=== PATIENT | female | born 1990 | race Caucasian/White ===

== ENCOUNTER 2024-04-26 17:16 | Inpatient (IN) | payer OTHER, SELFPAY ==
[2024-04-26 11:02] VITALS: BP 153/96
[2024-04-26 11:43] LABS: HCG, Serum Qualitative Screen Negative
[2024-04-26 11:47] LABS: Alkaline Phosphatase 282 U/L (38-126); Blood Urea Nitrogen < 2 mg/dl (7-17); COVID-19 Antigen Negative (Negative); Calcium 8.5 mg/dl (8.4-10.2); Carbon Dioxide 20 mmol/L (22-30); Chloride 93 mmol/L (98-107); Glucose 89 mg/dl (70-99); Potassium 3.3 mmol/L (3.5-5.1); Sodium 137 mmol/L (135-145); Total Protein 7.5 g/dl (6.3-8.2); eGFR > 60.00
[2024-04-26 11:56] LABS: ALT (SGPT) 62 U/L (0-35); AST (SGOT) 475 U/L (14-36)
--- NOTE | 2024-04-26 12:08 | ED.GENMED ---
History of Present Illness
<ANGELIC Edward - Last Filed: 04/30/24 09:17>
General
Chief Complaint: Breathing Problem
Source: patient
Exam Limitations: none
Time Seen by Provider: 04/26/24 12:05
Nursing documentation reviewed up to this point in time: agreed with
History of Present Illness
History of Present Illness:
Patient is a 33-year-old female with history of alcohol use disorder obesity depression history of transaminitis in the past presents to the ER for evaluation. She reports for the past week she has had a cough and bodyaches fever chills however now
complains of shortness of breath. She is a non-smoker. In addition she c/ of upper abdominal pain . did last drink alcohol yesterday.
She denies any history of PE DVT denies any lower leg pain or swelling.
Past History
<ANGELIC Edward - Last Filed: 04/30/24 09:17>
Past History
ED Past Medical History: Psychiatric and Other (Cellulitis, Gout,)
ED Past Surgical History: and Other
Social History
Tobacco: Smoker
Alcohol: None
Personal: Single
Living: with family
Employment: Student
Review of Systems
<ANGELIC Edward - Last Filed: 04/30/24 09:17>
Review of Systems
Allergies reviewed?: Yes
All Other Systems: ROS reviewed and negative except as documented in HPI and ROS
Constitutional: Reports fatigue
EENT: Reports no symptoms
Respiratory: Reports cough and trouble breathing
Cardiac: Reports no symptoms
ABD/GI: Reports no symptoms
Musculoskeletal: Reports no symptoms
Skin: Reports no symptoms
Hematologic/Lymphatic: Reports no symptoms
Psychiatric: Reports no symptoms
Phy Exam
<ANGELIC Edward - Last Filed: 04/30/24 09:17>
General Physical Exam
General Presentation: no apparent distress
General age: appears stated age
General Skin: warm and dry
General Habitus: normal
General Mental: alert
General Hydration: appears well hydrated
Eye Exam
Eye Exam: PERRL, EOMI and other (Scleral icterus)
Eye Exam General: PERRL: bilateral and EOM intact: bilateral
Pupil Exam: Bilateral: round and reactive
Cardiovascular Exam
Cardiovascular Exam: regular rate/rhythm, no murmur and normal peripheral pulses
Pulmonary Exam
Pulmonary Exam: lungs clear and no respiratory distress
Neurological Exam
Neurological Exam: alert and oriented x3
Musculoskeletal Exam
Musculoskeletal Exam: full ROM
Skin Exam
Skin Exam: normal color and warm/dry
Psychiatric Exam
Psychiatric Exam: normal mood/affect
Course
<ANGELIC Edward - Last Filed: 04/30/24 09:17>
Orders/Labs/Results
Orders:
Orders
04/26/24 Lunch
BRAT
At Your Request: Full Participation
04/26/24 11:12
Test Result ONCE
CXR2 [CR Chest - 2 Views ] Urgent
Comment:
Reason For Exam: SOB
04/26/24 11:20
COVID-19 Antigen Urgent
Source: Nasal Swab
Complete Blood Count/With Diff Urgent
Comprehensive Metabolic Panel Urgent
HCG, Serum Qualitative Screen Urgent
Lipase Urgent
Magnesium Urgent
Comment: ADD ON
Phosphorus Urgent
Comment: ADD ON
Influenza A+B Rapid Molecular Urgent
MAYRA Source: Nasal Swab
Specimen Description:
04/26/24 12:21
0.9% Sodium Chloride 1000 ml [Nss] 1,000 ml IV BOLUS
Morphine Sulfate 4 mg IV NOW STA
US Abdomen Complete/Upper Urgent
Comment:
Reason For Exam: upper abbd pain
04/26/24 14:24
HYDROmorphone [Dilaudid] 1 mg IV NOW STA
04/26/24 15:12
CT Chest PE Study Urgent
Comment:
Reason For Exam: sob
04/26/24 16:31
Ondansetron Injectable [Zofran] 4 mg .ROUTE .STK-MED ONE
Ondansetron Injectable [Zofran] 4 mg IV NOW STA
04/26/24 16:32
EKG- Treatment ONCE
04/26/24 16:34
Potassium Chloride [KCl] 40 meq 0.9% Sodium Chloride 250 ml [Nss] 250 ml IV NOW
04/26/24 16:35
Add On- LAB Routine
Tests Added?: magnesium
EKG [Electrocardiogram (*1)] Routine
Reason for Study: QTc Monitoring
Oseltamivir Phosphate [Tamiflu] 75 mg PO NOW STA
04/26/24 16:37
Add On- LAB Urgent
Tests Added?: phosphorous
INR [Prothrombin Time] Urgent
04/26/24 16:39
Admit/Transfer Patient As Directed
Co-Sign Provider:
Level of Care: Inpatient admission
Assign to:: Telemetry
Physician / Group: Kirsten Fajardo
Diagnosis: Influenza A, alcohol hepatitis
Reason for Telemetry: Chest Pain syndromes
Date to Stop Telemetry: 04/28/24
Time to Stop Telemetry: 11:00
Reason for Hospitalization: Influenza A, alcohol hepatitis
Expected length of stay greater than two midnights?: Yes
ELOS- Estimated Length of Stay in days: 3
I certify the patient meets the requirements for IP care: Yes
PRN Pain Medication Management As Directed
May give lesser potent ordered pain med per pt: Yes
preference::
Protocol:: Medication orders for pain may be administered in a
manner that supports deferring to patient preference
when the pt is:
- Requesting an ordered lesser potent pain medication.
Least to most potent pain medications are defined
as: acetaminophen < NSAID < tramadol < opioids
(morphine, oxycodone, hydromorphone).
- Requesting a lesser dose of the same medication IF
ORDERED.
- Requesting a less intrusive route of administration
if both routes are prescribed by the provider (PO <
IV).
04/26/24 16:40
Code Status As Directed
Resuscitation Status: Full Code
04/26/24 16:43
Lorazepam [Ativan] 0.5 mg IV NOW STA
04/26/24 16:44
0.9% Sodium Chloride [Nss (Preservative Free)] 0.25 ml IV NOW STA
04/26/24 16:45
0.9% Sodium Chloride 1000 ml [Nss] 1,000 ml IV 125 mls/hr
04/26/24 18:21
0.9% Sodium Chloride [Nss (Preservative Free)] See Protocol IV PRN PRN
Acetaminophen [Tylenol] 650 mg PO Q4HPRN PRN
Enoxaparin Sodium [Lovenox] 40 mg SC QPM
FOLic ACID [Folvite] 1 mg 0.9% Sodium Chloride 50 ml [Nss] 50 ml IV DAILYPRN
Lorazepam [Ativan] 1 mg IV Q1HPRN PRN
Lorazepam [Ativan] 1 mg PO Q2HPRN PRN
Lorazepam [Ativan] 2 mg IV Q1HPRN PRN
Polyethylene Glycol Powder [Miralax] 17 grams PO DAILYPRN PRN
04/26/24 18:21
Case Management Consult Once
Case Management Consult: Other
Comment: Substance abuse counseling
DIETARY CONSULT Routine
Reason for Consult: Nutrition support, possible refeeding guidelines
Urine Drug Abuse Screen Routine
Date Specimen was Collected: 04/27/24
Time Specimen was Collected: :27
Activity As Directed
Activity Level: As Tolerated
MSAS SCORE As Directed
MSAS Score 0-4: Repeat MSAS every 2 hours until 0-4 for three consecutive assessments, then every 4 hours x 48
hours.
MSAS Score 5-7: For MILD withdrawl symptoms. Repeat MSAS and RASS every 2 hours
MSAS Score 8-11: For MODERATE withdrawal symptoms. Repeat MSAS and RASS every 1 hour. Consider ICU or IMU
level of care.
MSAS Score > 11: For SEVERE withdrawal symptoms. Repeat MSAS and RASS every 1 hour. Notify provider, consider
ICU level of care.
MSAS Additional Instructions: If no improvement or no decrease in score from severe to moderate within 12
hours, consult psychiatry
MSAS Notify Provider: Notify provider if patient requires more than 10 mg of Lorazepam in eight hour period.
Vital Signs As Directed
Frequency: Per unit guidelines
DX Deep Vein Thrombosis Video Routine
04/27/24 00:00
Thiamine Injection 200 mg IV Q8
04/27/24 06:00
EKG [Electrocardiogram (*1)] IN AM
Reason for Study: QTc Monitoring
04/27/24 07:28
Complete Blood Count/With Diff IN AM
Comprehensive Metabolic Panel IN AM
Magnesium IN AM
04/27/24 08:00
FOLic ACID [Folvite] 1 mg PO DAILY
Oseltamivir Phosphate [Tamiflu] 75 mg PO BID
04/28/24 11:00
DC Protocol for Telemetry ONCE
04/29/24 20:00
Thiamine HCl [Vitamin B1] 100 mg PO BID
Abnormal Lab Results
04/26/24 04/26/24
11:20 16:37
RBC 3.48 L 10^6/uL
(4.20-5.40)
Hct 36.8 L %
(37.0-47.0)
MCV 105.7 H fL
(81.0-99.0)
MCH 37.4 H pg
(27.0-31.0)
RDW 17.3 H %
(11.5-14.5)
Plt Count 128 L 10^3/uL
(130-400)
MPV 11.6 H fL
(7.4-10.4)
Abs Immat Gran (auto) 0.1 H 10^3/uL
(0-0.05)
Absolute Neuts (auto) 7.8 H 10^3/uL
(1.4-6.5)
Absolute Lymphs (auto) 0.6 L 10^3/uL
(1.2-3.4)
Immature Gran % 0.7 H %
(0-0.5)
Neutrophils % 87.7 H %
(42.2-75.2)
Lymphocytes % 6.8 L %
(20.5-51.1)
PT 16.7 H Sec
(11.4-14.6)
Potassium 3.3 L mmol/L
(3.5-5.1)
Chloride 93 L mmol/L
(98-107)
Carbon Dioxide 20 L mmol/L
(22-30)
BUN < 2 L mg/dl
(7-17)
Creatinine 0.5 L mg/dL
(0.6-1.0)
Total Bilirubin 7.0 H mg/dl
(0.2-1.3)
AST 475 H U/L
(14-36)
ALT 62 H U/L
(0-35)
Alkaline Phosphatase 282 H U/L
(38-126)
04/26/24 11:20
04/26/24 11:20
Vital Signs
Initial and Last Documented VS:
Initial Vital Signs
Temp Pulse Resp BP Pulse Ox
98.8 F 104 18 153/96 99
04/26/24 11:02 04/26/24 11:02 04/26/24 11:02 04/26/24 11:02 04/26/24 11:02
Last Documented Vital Signs
Temp Pulse Resp BP Pulse Ox
98.0 F 105 19 109/65 96
04/30/24 07:05 04/30/24 07:05 04/30/24 07:05 04/30/24 07:05 04/30/24 07:05
<Alvarez Amaya, DO - Last Filed: 04/26/24 12:23>
Orders/Labs/Results
Orders:
Orders
04/26/24 Lunch
BRAT
At Your Request: Full Participation
04/26/24 11:12
Test Result ONCE
CXR2 [CR Chest - 2 Views ] Urgent
Comment:
Reason For Exam: SOB
04/26/24 11:20
COVID-19 Antigen Urgent
Source: Nasal Swab
Complete Blood Count/With Diff Urgent
Comprehensive Metabolic Panel Urgent
HCG, Serum Qualitative Screen Urgent
Lipase Urgent
Magnesium Urgent
Comment: ADD ON
Phosphorus Urgent
Comment: ADD ON
Influenza A+B Rapid Molecular Urgent
MAYRA Source: Nasal Swab
Specimen Description:
04/26/24 12:21
0.9% Sodium Chloride 1000 ml [Nss] 1,000 ml IV BOLUS
Morphine Sulfate 4 mg IV NOW STA
US Abdomen Complete/Upper Urgent
Comment:
Reason For Exam: upper abbd pain
04/26/24 14:24
HYDROmorphone [Dilaudid] 1 mg IV NOW STA
04/26/24 15:12
CT Chest PE Study Urgent
Comment:
Reason For Exam: sob
04/26/24 16:31
Ondansetron Injectable [Zofran] 4 mg .ROUTE .STK-MED ONE
Ondansetron Injectable [Zofran] 4 mg IV NOW STA
04/26/24 16:32
EKG- Treatment ONCE
04/26/24 16:34
Potassium Chloride [KCl] 40 meq 0.9% Sodium Chloride 250 ml [Nss] 250 ml IV NOW
04/26/24 16:35
Add On- LAB Routine
Tests Added?: magnesium
EKG [Electrocardiogram (*1)] Routine
Reason for Study: QTc Monitoring
Oseltamivir Phosphate [Tamiflu] 75 mg PO NOW STA
04/26/24 16:37
Add On- LAB Urgent
Tests Added?: phosphorous
INR [Prothrombin Time] Urgent
04/26/24 16:39
Admit/Transfer Patient As Directed
Co-Sign Provider:
Level of Care: Inpatient admission
Assign to:: Telemetry
Physician / Group: Kirsten Fajardo
Diagnosis: Influenza A, alcohol hepatitis
Reason for Telemetry: Chest Pain syndromes
Date to Stop Telemetry: 04/28/24
Time to Stop Telemetry: 11:00
Reason for Hospitalization: Influenza A, alcohol hepatitis
Expected length of stay greater than two midnights?: Yes
ELOS- Estimated Length of Stay in days: 3
I certify the patient meets the requirements for IP care: Yes
PRN Pain Medication Management As Directed
May give lesser potent ordered pain med per pt: Yes
preference::
Protocol:: Medication orders for pain may be administered in a
manner that supports deferring to patient preference
when the pt is:
- Requesting an ordered lesser potent pain medication.
Least to most potent pain medications are defined
as: acetaminophen < NSAID < tramadol < opioids
(morphine, oxycodone, hydromorphone).
- Requesting a lesser dose of the same medication IF
ORDERED.
- Requesting a less intrusive route of administration
if both routes are prescribed by the provider (PO <
IV).
04/26/24 16:40
Code Status As Directed
Resuscitation Status: Full Code
04/26/24 16:43
Lorazepam [Ativan] 0.5 mg IV NOW STA
04/26/24 16:44
0.9% Sodium Chloride [Nss (Preservative Free)] 0.25 ml IV NOW STA
04/26/24 16:45
0.9% Sodium Chloride 1000 ml [Nss] 1,000 ml IV 125 mls/hr
04/26/24 18:21
0.9% Sodium Chloride [Nss (Preservative Free)] See Protocol IV PRN PRN
Acetaminophen [Tylenol] 650 mg PO Q4HPRN PRN
Enoxaparin Sodium [Lovenox] 40 mg SC QPM
FOLic ACID [Folvite] 1 mg 0.9% Sodium Chloride 50 ml [Nss] 50 ml IV DAILYPRN
Lorazepam [Ativan] 1 mg IV Q1HPRN PRN
Lorazepam [Ativan] 1 mg PO Q2HPRN PRN
Lorazepam [Ativan] 2 mg IV Q1HPRN PRN
Polyethylene Glycol Powder [Miralax] 17 grams PO DAILYPRN PRN
04/26/24 18:21
Case Management Consult Once
Case Management Consult: Other
Comment: Substance abuse counseling
DIETARY CONSULT Routine
Reason for Consult: Nutrition support, possible refeeding guidelines
Urine Drug Abuse Screen Routine
Date Specimen was Collected: 04/27/24
Time Specimen was Collected: 01:27
Activity As Directed
Activity Level: As Tolerated
MSAS SCORE As Directed
MSAS Score 0-4: Repeat MSAS every 2 hours until 0-4 for three consecutive assessments, then every 4 hours x 48
hours.
MSAS Score 5-7: For MILD withdrawl symptoms. Repeat MSAS and RASS every 2 hours
MSAS Score 8-11: For MODERATE withdrawal symptoms. Repeat MSAS and RASS every 1 hour. Consider ICU or IMU
level of care.
MSAS Score > 11: For SEVERE withdrawal symptoms. Repeat MSAS and RASS every 1 hour. Notify provider, consider
ICU level of care.
MSAS Additional Instructions: If no improvement or no decrease in score from severe to moderate within 12
hours, consult psychiatry
MSAS Notify Provider: Notify provider if patient requires more than 10 mg of Lorazepam in eight hour period.
Vital Signs As Directed
Frequency: Per unit guidelines
DX Deep Vein Thrombosis Video Routine
04/27/24 00:00
Thiamine Injection 200 mg IV Q8
04/27/24 06:00
EKG [Electrocardiogram (*1)] IN AM
Reason for Study: QTc Monitoring
04/27/24 07:28
Complete Blood Count/With Diff IN AM
Comprehensive Metabolic Panel IN AM
Magnesium IN AM
04/27/24 08:00
FOLic ACID [Folvite] 1 mg PO DAILY
Oseltamivir Phosphate [Tamiflu] 75 mg PO BID
04/28/24 11:00
DC Protocol for Telemetry ONCE
04/29/24 20:00
Thiamine HCl [Vitamin B1] 100 mg PO BID
Abnormal Lab Results
04/26/24 04/26/24
11:20 16:37
RBC 3.48 L 10^6/uL
(4.20-5.40)
Hct 36.8 L %
(37.0-47.0)
MCV 105.7 H fL
(81.0-99.0)
MCH 37.4 H pg
(27.0-31.0)
RDW 17.3 H %
(11.5-14.5)
Plt Count 128 L 10^3/uL
(130-400)
MPV 11.6 H fL
(7.4-10.4)
Abs Immat Gran (auto) 0.1 H 10^3/uL
(0-0.05)
Absolute Neuts (auto) 7.8 H 10^3/uL
(1.4-6.5)
Absolute Lymphs (auto) 0.6 L 10^3/uL
(1.2-3.4)
Immature Gran % 0.7 H %
(0-0.5)
Neutrophils % 87.7 H %
(42.2-75.2)
Lymphocytes % 6.8 L %
(20.5-51.1)
PT 16.7 H Sec
(11.4-14.6)
Potassium 3.3 L mmol/L
(3.5-5.1)
Chloride 93 L mmol/L
(98-107)
Carbon Dioxide 20 L mmol/L
(22-30)
BUN < 2 L mg/dl
(7-17)
Creatinine 0.5 L mg/dL
(0.6-1.0)
Total Bilirubin 7.0 H mg/dl
(0.2-1.3)
AST 475 H U/L
(14-36)
ALT 62 H U/L
(0-35)
Alkaline Phosphatase 282 H U/L
(38-126)
04/26/24 11:20
04/26/24 11:20
Vital Signs
Initial and Last Documented VS:
Initial Vital Signs
Temp Pulse Resp BP Pulse Ox
98.8 F 104 18 153/96 99
04/26/24 11:02 04/26/24 11:02 04/26/24 11:02 04/26/24 11:02 04/26/24 11:02
Last Documented Vital Signs
Temp Pulse Resp BP Pulse Ox
98.0 F 105 19 109/65 96
04/30/24 07:05 04/30/24 07:05 04/30/24 07:05 04/30/24 07:05 04/30/24 07:05
<ANGELIC Edward - Last Filed: 04/30/24 09:17>
MDM/Problems Addressed
Differential Diagnosis Includes:
Not limited viral syndrome influenza COVID cholecystitis
MDM/Problems Addressed:
As documented patient is a 33-year-old female with alcohol use presents for evaluation of flulike symptoms shortness of breath. Patient does have the flu. On exam she has scleral icterus complains of upper abdominal discomfort and complains of
upper abdominal discomfort with taking a deep breath however also vague shortness of breath. On exam she has scleral icterus she is mildly tender throughout the upper abdomen. She has a normal white count; bilirubin is elevated at 7.0 along with
LFTs. Lipase normal hCG negative COVID-negative flu positive. She has normal renal function ultrasound negative for acute cholecystitis. With vague shortness of breath will order CT. Patient however will need admission for further evaluation of
elevated bilirubin and LFTs. Case discussed admitting hospitalist CT pending hospitalist aware of pending CT.
Chronic conditions affecting care:
Chronic alcohol use, hepatitis C
<ANGELIC Edward - Last Filed: 04/30/24 09:17>
*Critical Care Note
Total Time (30-74mins, 75-104mins- exclusive of procedures): Not Applicable
ED Attending Note
<ANGELIC Edward - Last Filed: 04/30/24 09:17>
-
Portions of this chart may have been created with voice recognition software.� Occasional wrong word or��sound alike� substitutions may have occurred due to the inherent limitations of voice recognition software.
<Alvarez Amaya DO - Last Filed: 04/26/24 12:23>
ED Attending Note
Patient seen and examined by attending physician: Yes
I performed the substantive portion of visit, reviewed & personally made and approve the management plan that is documented in note by myself or MERY.: Yes
ED Attending Note:
I have seen and evaluated the patient with a [id number] encounter. I have spoken to the advance practicer provider and involved in the medical history, the physical exam, medical decision making.
Evaluation and management service: agree unless noted differently below.
Results interpretation: agree unless noted differently below.
Focused HPI: 33-year-old female presenting for evaluation of cold and flu symptoms and now with worsening shortness of breath. Patient does acknowledge ongoing history of alcohol abuse.
Physical exam: Uncomfortable, mild jaundice, significant tenderness to right upper quadrant, shallow breath sounds
Medical Decision Making: Her shortness of breath is likely related to diaphragmatic discomfort. Patient has very shallow breathing and it is uncomfortable with deep inspiration. She is significantly tender in the right upper quadrant. Given her
LFT elevations, we will focus the workup on GI related pathology such as acute cholecystitis or pancreatitis. Chest x-ray was clear. Patient will ultimately require admission for further evaluation of significantly elevated LFTs
Discharge Plan
Departure
Patient Disposition: Admit
Date of Disposition: 04/26/24
Time of Disposition: 15:18
Admit to: Med/Surg
Admit to doctor: hospitalist
Presentation/result/management discussed w/ accepting MD/DO: Hospitalist
Patient with high blood pressure during this ER visit?: Yes
Condition: Fair
Covid-19: Not Applicable
Discharge Problem:
Influenza A, transamititis, Jaundice
Interventions
Interventions:
*Risk Screen - Suicide Last Done: 04/26/24 11:08
*General Assessment Last Done: 04/26/24 11:43
*Neglect/Abuse Screening Last Done: 04/26/24 11:08
ED- Fall Risk Assessment Last Done: 04/26/24 11:43
*ED COVID-19 Vaccine History Last Done: 04/26/24 11:43
*Nursing Disposition Last Done: 04/26/24 18:07
ED- Cardiac Assessment Last Done: 04/26/24 11:43
ED- Pulmonary Assessment Last Done: 04/26/24 11:43
Discharge Date and Time
Discharge Date/Time: 04/26/24 18:07
[2024-04-26 12:11] LABS: Lipase 189 U/L (23-300)
[2024-04-26] MEDS: MORPHINE SULFATE 4 MG IV (12:38)
[2024-04-26] MEDS: NSS 1000 IV ×2 (12:38→17:19)
[2024-04-26 12:45] VITALS: BMI 39.7
[2024-04-26 12:58] VITALS: BP 145/92
[2024-04-26 13:34] LABS: % Basophils 0.1 % (0-2); % Immature Granulocytes 0.7 % (0-0.5); % Lymphocytes 6.8 % (20.5-51.1); % Monocytes 4.7 % (1.7-9.3); % Neutrophils 87.7 % (42.2-75.2); Absolute Immature Granulocytes 0.1 10^3/uL (0-0.05); Absolute Lymphocytes 0.6 10^3/uL (1.2-3.4); Absolute Monocytes 0.4 10^3/uL (0.1-0.6); Absolute Neutrophils 7.8 10^3/uL (1.4-6.5); Hematocrit 36.8 % (37.0-47.0); Mean Corp Hgb Conc. 35.3 g/dL (33.0-37.0); Mean Corpuscular Hgb 37.4 pg (27.0-31.0); Mean Corpuscular Volume 105.7 fL (81.0-99.0); Mean Platelet Volume 11.6 fL (7.4-10.4); Nucleated Red Blood Cells % 0 %; Platelet Count 128 10^3/uL (130-400); Red Blood Cell Count 3.48 10^6/uL (4.20-5.40); Red Cell Dist. Width 17.3 % (11.5-14.5); White Blood Cell Count 8.9 10^3/uL (4.8-10.8)
[2024-04-26] MEDS: DILAUDID 1 MG IV (14:35)
--- NOTE | 2024-04-26 15:32 | PHANOTE ---
med rec note-patient stated she stopped her medication month(s) ago patient picked up in March 2024 prazosin 2mg hs, doxepin 25mg hs, Lexapro 30mg daily, clondine 0.15 daily and buprenorphine 8-2mg tab 2 daily.
[2024-04-26 15:47] VITALS: BP 138/72
--- NOTE | 2024-04-26 16:17 | HPS.HSE ---
Addendum entered and electronically signed by Kirsten Fajardo MD 04/26/24 19:37:
CTA results:
IMPRESSION:
There is no central pulmonary embolism.
Evaluation for peripheral pulmonary emboli is limited by suboptimal timing of the contrast bolus
There is diffuse fatty infiltration of the liver
Addendum entered and electronically signed by Kirsten Fajardo MD 04/26/24 17:17:
DF = 24. < 32, will not start steroids
Original Note:
Family Physician
-
Family Physician: PT UNKNOWN
Chief Complaint
-
shortness of breath
History of Present Illness
Ms. Ann Ken is a 33 yo woman with hx anxiety/depression, alcohol use disorder (last drink yesterday), HCV presents to the ER complaining of cough, bodyaches, fever and chills.
Patient states that symptoms of fatigue, cough, sore throat, fevers/chills and body aches started last week and progressed bringing her to the ER today. + nausea and vomiting multiple times a day, she states she can't keep anything down. no
diarrhea. She has upper abdominal pain that is worse when breathing, believes secondary to her liver. She drinks 1/2 bottle whiskey/day and last drink was yesterday. Denies smoking.
No chest pain. + shortness of breath. No LE swelling. No rash.
Medical History
Past Medical History
Past Medical History: Reports Other
Additional Past Medical History:
Past medical history and archive reviewed:
Obesity.
Alcohol use disorder
Tobacco use disorder
Severe fatty liver
Hepatitis C infection
Surgical history:
Social history: Lives with family, have 2 children
Smokes couple cigarettes daily and drinks up to 6 drinks of alcohol daily.
Family history: Reviewed and noncontributory
Past Surgical History: Reports Other
Social History
Unable to obtain full social history at this time due to: Other
Tobacco: Non-smoker
Alcohol: Daily
Family History
Family History: Not pertinent and Other
Allergies / Home Medications
Allergies reflects when Allergies were last updated in [facility].
Home Medications with original date entered in [facility]
Allergy/Medication List:
Allergies
Allergy/AdvReac Type Severity Reaction Status Date / Time
No Known Allergies Allergy Verified 04/26/24 11:08
Home Medications
dzlqhvgzap-bgojmhawklxbxzs-pxovwujkfkgagnbu-acetaminophen capsule 1 cap PO DAILYPRN PRN congestion 04/26/24
Review of Systems
-
History Source: Patient
A 12 point ROS was completed and negative except as noted: Yes
Physical Exam
Vital Signs
Vital Signs
Temp Pulse Resp BP Pulse Ox
98.8 F 97 22 138/72 96
04/26/24 11:02 04/26/24 16:05 04/26/24 16:05 04/26/24 15:47 04/26/24 15:47
Physical Exam
General: Obese and Other (appears nauseated)
HEENT: PERRLA
Respiratory: Clear; No Wheezes
Cardiac: S1/S2 and Regular Rhythm
GI: Other (tenderness right upper quadrant)
Musculoskeletal: No Edema
Skin: Warm and Dry; No Rash
Neuro: AO x 3
Psych: Calm
Laboratory Results
-
04/26/24 11:20
04/26/24 11:20
Laboratory Results
Total Bilirubin 7.0 mg/dl (0.2-1.3) H 04/26/24 11:20
AST 475 U/L (14-36) H 04/26/24 11:20
ALT 62 U/L (0-35) H 04/26/24 11:20
Alkaline Phosphatase 282 U/L (38-126) H 04/26/24 11:20
Lipase 189 U/L (23-300) 04/26/24 11:20
Data Reviewed
-
Diagnostic Radiology: Report Reviewed by me
Lab Data: Labs Reviewed by me
Impression/Plan
-
Ms. Ann Ken is a 33 yo woman with hx anxiety/depression, alcohol use disorder (last drink yesterday), HCV presents to the ER complaining of cough, bodyaches, fever and chills.
Triage VS: T 98.8, P 104, RR 18, BP 153/96, SpO2 99%
LABS: WBC 8.9, HG 13, PLT 128, Na 137, K+ 3.3, Cl 93, CO2 20, BUN < 2, Cr 0.5, Glucose 89, T. Bili 7.0, AST 475, ALT 63, Alk PHos 282, Lipase 189
HCG negative
Covid Negative
Influenza A Positive
CXR
IMPRESSION:
No acute cardiopulmonary process.
Abdomen US:
IMPRESSION:
1. Hepatomegaly and Increased echogenicity in the liver, compatible with underlying hepatocellular disease, which most commonly relates to fatty infiltration of the liver.
2. No sonographic evidence for cholelithiasis or acute cholecystitis.
3. Splenomegaly.
No intra- or extrahepatic biliary ductal dilatation with the visualized portion of the common duct measuring 3.8 mm. No gallstones, gallbladder wall thickening, pericholecystic fluid or sonographic Martinez's sign.
MAR: IVF, morphine, dilaudid
Shortness of Breath
Influenza A
Nausea/Vomiting
-CXR without e/o superimposed pneumonia
-given hospitalization and comorbidities with liver disease increasing risk complication - will start Tamiflu
-IVF
-BRAT diet
-given pleuritic pain, CTA ordered by ER physician, will follow up result
Prolonged Qtc
-awaiting Mag, avoid Zofran and other QTc prolonging meds, repeat tomorrow
Elevated Liver Enzymes
Alcohol Abuse
Alcohol Hepatitis
-RUQ US results above - no biliary ductal dilation
-F/U INR to calculate DF
-MSAS protocol with IV ativan PRN
-monitor electrolytes
-IVF as above
DVT PPx Lovenox subQ
FULL CODE
76 MINUTES spent on patient care
[2024-04-26 17:02] LABS: INR 1.32; PT 16.7 Sec (11.4-14.6)
[2024-04-26] MEDS: ATIVAN 0.5 MG IV (17:09)
[2024-04-26] MEDS: TAMIFLU 75 MG PO (17:09)
[2024-04-26] MEDS: NSS (PRESERVATIVE FREE) 0.25 ML IV (17:10)
[2024-04-26 17:18] LABS: Magnesium 1.6 mg/dl (1.6-2.3); Phosphorus 3.1 mg/dl (2.5-4.5)
[2024-04-26] MEDS: KCL 270 MEQ IV (17:18)
[2024-04-26] MEDS: DILAUDID 0.5 MG IV ×2 (17:31→21:09)
[2024-04-26 18:26] VITALS: BP 152/97
[2024-04-26 19:35] VITALS: BP 144/88
[2024-04-26] MEDS: LOVENOX 40 MG SC (19:56)
[2024-04-26] MEDS: MAGNESIUM SULFATE 50 IV (21:27)
[2024-04-26] MEDS: THIAMINE INJECTION 200 MG IV (23:52)
[2024-04-26 23:56] VITALS: BP 139/74
[2024-04-27] MEDS: NSS 1000 IV ×2 (01:18→10:21)
[2024-04-27] MEDS: DILAUDID 0.25 MG IV ×6 (01:29→22:56)
[2024-04-27 01:57] LABS: Amphetamines Negative (Negative); Barbiturates Negative (Negative); Benzodiazepines Positive (Negative); Buprenorphine Negative (Negative); Cocaine Negative (Negative); Marijuana Negative (Negative); Methadone Negative (Negative); Methamphetamines Negative (Negative); Opiates Positive (Negative); Phencyclidine Negative (Negative); Tricyclic Antidepressants Negative (Negative)
[2024-04-27 02:12] LABS: Fentanyl, Urine Negative (Negative)
[2024-04-27] MEDS: ATIVAN 1 MG PO ×7 (02:49→22:10)
[2024-04-27 03:45] VITALS: BP 133/77
[2024-04-27 05:46] VITALS: BMI 39.5
[2024-04-27 07:56] LABS: % Basophils 0.1 % (0-2); % Eosinophils 0.1 % (0-6); % Immature Granulocytes 0.4 % (0-0.5); % Monocytes 3.8 % (1.7-9.3); % Neutrophils 79.6 % (42.2-75.2); Absolute Lymphocytes 1.3 10^3/uL (1.2-3.4); Absolute Monocytes 0.3 10^3/uL (0.1-0.6); Absolute Neutrophils 6.3 10^3/uL (1.4-6.5); Hematocrit 32.2 % (37.0-47.0); Hemoglobin 11.3 g/dL (12.0-16.0); Mean Corp Hgb Conc. 35.1 g/dL (33.0-37.0); Mean Corpuscular Hgb 37.3 pg (27.0-31.0); Mean Corpuscular Volume 106.3 fL (81.0-99.0); Nucleated Red Blood Cells % 0 %; Red Blood Cell Count 3.03 10^6/uL (4.20-5.40); Red Cell Dist. Width 18.2 % (11.5-14.5); White Blood Cell Count 7.9 10^3/uL (4.8-10.8)
[2024-04-27 07:58] LABS: INR 1.32; PT 16.6 Sec (11.4-14.6)
[2024-04-27 08:17] LABS: ALT (SGPT) 46 U/L (0-35); AST (SGOT) 373 U/L (14-36); Albumin 3.2 g/dl (3.5-5.0); Alkaline Phosphatase 221 U/L (38-126); Blood Urea Nitrogen 7 mg/dl (7-17); Calcium 7.6 mg/dl (8.4-10.2); Carbon Dioxide 27 mmol/L (22-30); Chloride 100 mmol/L (98-107); Estimated Creatinine Clearance > 125 ml/min; Glucose 65 mg/dl (70-99); Magnesium 2.2 mg/dl (1.6-2.3); Potassium 3.1 mmol/L (3.5-5.1); Sodium 139 mmol/L (135-145); Total Bilirubin 7.2 mg/dl (0.2-1.3); Total Protein 6.3 g/dl (6.3-8.2); eGFR > 60.00
[2024-04-27 08:24] VITALS: BP 128/73
[2024-04-27 08:26] LABS: Mean Platelet Volume 10.9 fL (7.4-10.4); Platelet Count 108 10^3/uL (130-400)
[2024-04-27] MEDS: THIAMINE INJECTION 200 MG IV ×3 (09:29→23:00)
[2024-04-27] MEDS: FOLVITE 1 MG PO (09:29)
[2024-04-27] MEDS: TAMIFLU 75 MG PO ×2 (09:29→20:08)
--- NOTE | 2024-04-27 10:17 | W.PN.HOSP.TC ---
Today's Communication/Plan
-
replete K
Tamiflu
diet advanced, tolerating, IVF completed
cont MSAS protocol, ativan prn
pain control
monitor LFTs
avoid QT prolonging agents
Assessment / Plan
Assessment / Plan
Physical Exam
General: Obese, no acute distress, appears comfortable at this time
HEENT: Normocephalic Atraumatic PERRLA
Respiratory: Clear; No Wheezes
Cardiac: S1/S2 and Regular Rhythm
GI: Tenderness right upper Quadrant
Musculoskeletal: No Edema
Skin: Warm and Dry; No Rash
Neuro: AO x 3
Psych: Calm
33F Anxiety/Depression ETOH here for Flu and Prolonged QT
CXR
IMPRESSION:
No acute cardiopulmonary process.
Abdomen US:
IMPRESSION:
1. Hepatomegaly and Increased echogenicity in the liver, compatible with underlying hepatocellular disease, which most commonly relates to fatty infiltration of the liver.
2. No sonographic evidence for cholelithiasis or acute cholecystitis.
3. Splenomegaly.
Shortness of Breath
Influenza A
Nausea/Vomiting
-CXR without e/o superimposed pneumonia
-Tamiflu
-BRAT diet advanced to Regular, tolerating, IVF completed
-CTA chest appreciated no central PE
Prolonged Qtc
-improving though remains prolonged
-avoid QT prolonging agents
-monitor and replete electrolytes as necessary
Hypokalemia
monitor and replete as necessary
Elevated Liver Enzymes
Alcohol Abuse
Alcohol Hepatitis
-Abd US appreciated as above
-Mild PT prolongation, INR well within normal range
-MSAS protocol with IV ativan PRN
-Pain control
-Thiamine Folate supplementation
-ETOH cessation counseled
DVT PPx Lovenox subQ
FULL CODE
I spent a total of 50 minutes with the patient or on the floor. More than 50% of this time involved counseling and coordination of care.
Anticipated Discharge: 24 - 48 hours
Subjective/Interval History
-
Date of Service: April 27, 2024
no acute distress resting comfortably in bed. Reports improvement in symptoms though not resolved. requiring prn ativan for ETOH withdrawal and prn IV pain medications.
Objective Data
-
Labs:
Laboratory Results
04/27/24
07:28
WBC 7.9
Hgb 11.3 L
Hct 32.2 L
Plt Count 108 L
PT 16.6 H
INR 1.32
Sodium 139
Potassium 3.1 L
Chloride 100
Carbon Dioxide 27
BUN 7
Creatinine 0.5 L
Glucose 65 L
Calcium 7.6 L
Total Bilirubin 7.2 H
AST 373 H
ALT 46 H
Alkaline Phosphatase 221 H
Vital Signs:
Vital Signs
Temp Pulse Resp BP Pulse Ox
98.9 F 105 19 128/73 94
04/27/24 08:24 04/27/24 08:24 04/27/24 08:24 04/27/24 08:24 04/27/24 08:24
I&O
04/26/24 04/27/24 04/28/24
06:59 06:59 06:59
Intake Total 1979 / 1979
Output Total 150 / 150
Balance 183 / 183
[2024-04-27 12:36] VITALS: BP 129/88
[2024-04-27] MEDS: KCL 40 MEQ PO (13:28)
[2024-04-27] MEDS: KCL 270 MEQ IV (13:28)
[2024-04-27 15:56] VITALS: BP 140/93
[2024-04-27] MEDS: LOVENOX 40 MG SC (17:20)
[2024-04-27] MEDS: TYLENOL 650 MG PO (17:23)
[2024-04-27 19:40] VITALS: BP 135/68
[2024-04-27 23:52] VITALS: BP 118/66
[2024-04-28] MEDS: TYLENOL 650 MG PO ×3 (02:17→17:29)
[2024-04-28] MEDS: ATIVAN 1 MG IV (02:18)
[2024-04-28] MEDS: NSS (PRESERVATIVE FREE) 0.5 ML IV (02:18)
[2024-04-28] MEDS: DILAUDID 0.5 MG IV ×4 (03:23→23:04)
[2024-04-28 03:54] VITALS: BP 113/69; BMI 40.1
--- NOTE | 2024-04-28 06:23 | W.PN.HOSP.TC ---
Today's Communication/Plan
-
replete Phos
Tamiflu
cont diet as tolerated
cont MSAS protocol, ativan prn
pain control
monitor LFTs
avoid QT prolonging agents
GI eval
Assessment / Plan
Assessment / Plan
Physical Exam
General: Obese, no acute distress, appears comfortable at this time
HEENT: Normocephalic Atraumatic PERRLA
Respiratory: Clear; No Wheezes
Cardiac: S1/S2 and Regular Rhythm
GI: Tenderness right upper Quadrant, right side abdomen, epigastric, bowel sounds present
Musculoskeletal: No Edema
Skin: Warm and Dry; No Rash
Neuro: AO x 3
Psych: Calm
33F Anxiety/Depression ETOH here for Flu and Prolonged QT
CXR
IMPRESSION:
No acute cardiopulmonary process.
Abdomen US:
IMPRESSION:
1. Hepatomegaly and Increased echogenicity in the liver, compatible with underlying hepatocellular disease, which most commonly relates to fatty infiltration of the liver.
2. No sonographic evidence for cholelithiasis or acute cholecystitis.
3. Splenomegaly.
Shortness of Breath
Influenza A
Nausea/Vomiting
-CXR without e/o superimposed pneumonia
-Tamiflu
-BRAT diet advanced to Regular, tolerating, IVF completed
-CTA chest appreciated no central PE
Prolonged Qtc
-improving though remains prolonged
-avoid QT prolonging agents
-monitor and replete electrolytes as necessary
Hypokalemia
Hypophosphatemia
monitor and replete as necessary
Elevated Liver Enzymes
Persistent Bilirubin Elevation
Alcohol Abuse
Alcohol Hepatitis
Hep C
-Abd US appreciated as above
-Mild PT prolongation, INR well within normal range
-MSAS protocol with IV ativan PRN
-Pain control
-Thiamine Folate supplementation
-ETOH cessation counseled
-GI eval appreciated no indication for steroids at this time, outpatient follow up recommended
DVT PPx Lovenox subQ
FULL CODE
I spent a total of 50 minutes with the patient or on the floor. More than 50% of this time involved counseling and coordination of care.
Anticipated Discharge: 24 - 48 hours
Subjective/Interval History
-
Date of Service: April 28, 2024
No acute distress, appears comfortable at this time, eating lunch without issues. Continues to report significant abd pain, epigastric and right sided/upper quadrant.
Objective Data
-
Labs:
Laboratory Results
04/28/24
05:43
WBC Pending
Hgb Pending
Hct Pending
Plt Count Pending
Sodium Pending
Potassium Pending
Chloride Pending
Carbon Dioxide Pending
BUN Pending
Creatinine Pending
Glucose Pending
Calcium Pending
Total Bilirubin Pending
AST Pending
ALT Pending
Alkaline Phosphatase Pending
Vital Signs:
Vital Signs
Temp Pulse Resp BP Pulse Ox
99.0 F 117 18 113/69 94
04/28/24 03:54 04/28/24 03:54 04/28/24 03:54 04/28/24 03:54 04/28/24 03:54
I&O
04/26/24 04/27/24 04/28/24
06:59 06:59 06:59
Intake Total 1979 / 1979 1200 / 1200
Output Total 150 / 150
Balance 1829 / 183 1200 / 1200
[2024-04-28 08:04] VITALS: BP 118/70
[2024-04-28 08:14] LABS: Mean Corp Hgb Conc. 34.3 g/dL (33.0-37.0); Mean Platelet Volume 11.2 fL (7.4-10.4); Platelet Count 118 10^3/uL (130-400); Red Blood Cell Count 3.24 10^6/uL (4.20-5.40); Red Cell Dist. Width 18.1 % (11.5-14.5); White Blood Cell Count 7.8 10^3/uL (4.8-10.8)
[2024-04-28] MEDS: ATIVAN 1 MG PO ×3 (08:14→17:29)
[2024-04-28] MEDS: THIAMINE INJECTION 200 MG IV ×2 (08:15→17:29)
[2024-04-28] MEDS: FOLVITE 1 MG PO (08:15)
[2024-04-28] MEDS: TAMIFLU 75 MG PO ×2 (08:15→21:15)
[2024-04-28] MEDS: DILAUDID 0.25 MG IV ×2 (08:44→12:35)
[2024-04-28 08:53] LABS: ALT (SGPT) 43 U/L (0-35); AST (SGOT) 285 U/L (14-36); Albumin 3.4 g/dl (3.5-5.0); Alkaline Phosphatase 230 U/L (38-126); Blood Urea Nitrogen 11 mg/dl (7-17); Calcium 8.3 mg/dl (8.4-10.2); Carbon Dioxide 25 mmol/L (22-30); Chloride 101 mmol/L (98-107); Estimated Creatinine Clearance > 125 ml/min; Glucose 69 mg/dl (70-99); Magnesium 2.1 mg/dl (1.6-2.3); Phosphorus 1.8 mg/dl (2.5-4.5); Sodium 140 mmol/L (135-145); Total Bilirubin 8.4 mg/dl (0.2-1.3); Total Protein 6.7 g/dl (6.3-8.2); eGFR > 60.00
[2024-04-28 08:58] LABS: Potassium 3.8 mmol/L (3.5-5.1)
[2024-04-28 11:48] VITALS: BP 126/61
[2024-04-28] MEDS: POTASSIUM PHOSPHATE 259.0909 MEQ IV (12:35)
--- NOTE | 2024-04-28 13:43 | CON.GI ---
Consultation
-
Date/Time Consultation Requested: 04/28/24 11:08am
Date/Time Consultation Performed: 04/28/24 1:44pm
Requesting Provider: Wanda Fernando
Performing Provider: Oracio Valentin
Reason for Consultation: RUQ pain
Medical History
Chief Complaint / HPI
Chief Complaint: RUQ pain
History of Present Illness:
Patient is a 33-year-old female who presents with cough, aches, fever, chills, right upper quadrant pain. She was diagnosed with influenza A and admitted to the hospital. She has had chronic right upper quadrant pain but over the last week has had
increased pain. She has been vomiting. She has a history of hepatitis C that was diagnosed 7 years ago. She has not had prior treatment. She also drinks alcohol regularly, half bottle of whiskey daily. She has had prior rehab and participated
in [facility].
Past Medical History
Past Medical History: Other (Hepatitis C, alcohol use disorder, obesity)
Past Surgical History:
Social History
Tobacco: Vaping
Alcohol: Chronic Alcoholic
Family History
Family History: Reviewed & Not Pertinent
Allergies / Home Medications
Allergy/AdvReac Type Severity Reaction Status Date / Time
No Known Allergies Allergy Verified 04/26/24 11:08
�Medication �Instructions �Recorded
qrmivfoywj-ipaxqysdqwzjsnl-cemkocvzfcagqoug-acetaminophen 1 cap PO DAILYPRN PRN congestion 04/26/24
capsule
Review of Systems
-
All other systems: A 12 pt ROS was Negative except as stated above in HPI
Vital Signs
Temp Pulse Resp BP Pulse Ox
98.9 F 102 19 126/61 94
04/28/24 11:48 04/28/24 11:48 04/28/24 11:48 04/28/24 11:48 04/28/24 11:48
Physical Exam
Exam
General: No Apparent Distress
HEENT: Normocephalic and Atraumatic
Respiratory: Non Labored Respirations
GI: Soft, Non Distended, Tender (mild b/l upper quadrant tenderness) and Organomegaly (hepatosplenomegaly)
Skin: Warm and Dry
Results
WBC 7.8 10^3/uL (4.8-10.8) 04/28/24 07:41
Hgb 12.0 g/dL (12.0-16.0) 04/28/24 07:41
Hct 35.0 % (37.0-47.0) L 04/28/24 07:41
MCV 108.0 fL (81.0-99.0) H 04/28/24 07:41
Plt Count 118 10^3/uL (130-400) L 04/28/24 07:41
Absolute Neuts (auto) 6.3 10^3/uL (1.4-6.5) 04/27/24 07:28
PT 16.6 Sec (11.4-14.6) H 04/27/24 07:28
INR 1.32 04/27/24 07:28
Sodium 140 mmol/L (135-145) 04/28/24 07:41
Potassium 3.8 mmol/L (3.5-5.1) 04/28/24 07:41
Chloride 101 mmol/L (98-107) 04/28/24 07:41
Carbon Dioxide 25 mmol/L (22-30) 04/28/24 07:41
BUN 11 mg/dl (7-17) 04/28/24 07:41
Creatinine 0.5 mg/dL (0.6-1.0) L 04/28/24 07:41
Calcium 8.3 mg/dl (8.4-10.2) L 04/28/24 07:41
Total Bilirubin 8.4 mg/dl (0.2-1.3) H 04/28/24 07:41
AST 285 U/L (14-36) H 04/28/24 07:41
ALT 43 U/L (0-35) H 04/28/24 07:41
Alkaline Phosphatase 230 U/L (38-126) H 04/28/24 07:41
Lipase 189 U/L (23-300) 04/26/24 11:20
12/26/22 Hepatitis C antibody - Reactive
Diagnostic Image Results:
04/26/24 US-
1. Hepatomegaly and Increased echogenicity in the liver, compatible with underlying hepatocellular disease, which most commonly relates to fatty infiltration of the liver.
2. No sonographic evidence for cholelithiasis or acute cholecystitis.
3. Splenomegaly.
Prior GI Procedures:
EGD:
Colonoscopy:
Assessment / Plan
-
Summary: 33yo female presents with 1 week cough, aches, chills, abd pain, n/v and Influenza A positive. She has chronic Hepatitis C, no prior rx. Also chronic alcohol, 1/2 bottle whiskey daily. US shows hepatosplenomegaly, normal GB. Plt 118,
INR 1.32. TBil 8.4
Impression:
Influenza A
RUQ pain worsened from baseline, possibly from n/v
Hepatitis C- not treated
EtOH hepatitis. DF = 25
Hepatosplenomegaly
Recommendations:
Continue supportive care
DF does not require steroids, and I would avoid steroids regardless with acute influenza
Upper abd pain possibly due to n/v, would observe for now. GB normal on US
Recommended EtOH abstinence, and she is agreeable and receptive
Needs OP follow up for Hep C/EtOH liver disease with HSM and low plt. Should get fibroscan to assess after d/c
-
-
Thank you for consultation and allowing me to participate in the patient's care. Please call the extension service specialist in charge GI physician during the after hours with any questions or concerns.
[2024-04-28 15:42] VITALS: BP 130/76
--- NOTE | 2024-04-28 16:14 | CM ---
Received consult for ETOH/Subtance resources. Met with patient to obtain information for assessment. Patient stated that she lives with her mother in a two story home with 5 steps to enter. She described herself as independent with all of her ADLs,
personal care, dressing, bathing and ambulation. 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 She does not drive but her mother is able to take her to all of her appointments and assist with shopping. Patient stated that she works part
time.
Patient denied any DME in her home.
She has never had VN services.
Patient has a prescription plan and uses, [facility] [address] in [place].
Her PCP is not listed.
Patient was asked if she would like to get resources for D&A and she declined stating that she sees a counselor and she just needs to be able to see her more often which she confirmed she can.
Plan: Case management will continue to follow and assist with discharge planning. Patient would like to return home with her mother when stable.
[2024-04-28] MEDS: LOVENOX 40 MG SC (17:29)
[2024-04-28 19:30] VITALS: BP 131/86
[2024-04-28 23:35] VITALS: BP 140/89
[2024-04-29] MEDS: THIAMINE INJECTION 200 MG IV ×3 (00:30→15:36)
[2024-04-29] MEDS: ATIVAN 1 MG PO (02:27)
[2024-04-29] MEDS: DILAUDID 0.5 MG IV ×3 (03:24→16:17)
[2024-04-29 03:29] VITALS: BP 141/73
--- NOTE | 2024-04-29 06:22 | W.PN.HOSP.TC ---
Today's Communication/Plan
-
Tamiflu
cont diet as tolerated
cont MSAS protocol, ativan prn
pain control, IV pain meds switched to PO- IV remains available for severe breakthrough pain
monitor LFTs
PT/OT eval
Assessment / Plan
Assessment / Plan
Physical Exam
General: Obese, no acute distress, appears comfortable at this time
HEENT: Normocephalic Atraumatic PERRLA
Respiratory: Clear; No Wheezes
Cardiac: S1/S2 and Regular Rhythm
GI: Tenderness right upper Quadrant, right side abdomen, epigastric, bowel sounds present
Musculoskeletal: No Edema
Skin: Warm and Dry; No Rash
Neuro: AO x 3
Psych: Calm
33F Anxiety/Depression ETOH here for Flu and Prolonged QT
CXR
IMPRESSION:
No acute cardiopulmonary process.
Abdomen US:
IMPRESSION:
1. Hepatomegaly and Increased echogenicity in the liver, compatible with underlying hepatocellular disease, which most commonly relates to fatty infiltration of the liver.
2. No sonographic evidence for cholelithiasis or acute cholecystitis.
3. Splenomegaly.
Shortness of Breath
Influenza A
Nausea/Vomiting
-CXR without e/o superimposed pneumonia
-Tamiflu
-BRAT diet advanced to Regular, tolerating, IVF completed
-CTA chest appreciated no central PE
Prolonged Qtc
-improving though remains prolonged
-avoid QT prolonging agents
-monitor and replete electrolytes as necessary
-improving
Hypokalemia
Hypophosphatemia
monitor and replete as necessary
Elevated Liver Enzymes
Persistent Bilirubin Elevation
Alcohol Abuse
Alcohol Hepatitis
Hep C
-Abd US appreciated as above
-Mild PT prolongation, INR well within normal range
-MSAS protocol with IV ativan PRN
-Pain control, IV pain med switched to po prn, IV remains available for severe break through pain
-Thiamine Folate supplementation
-ETOH cessation counseled
-GI eval appreciated no indication for steroids at this time, outpatient follow up recommended
Generalized weakness/reporting impaired ambulation
-PT/OT eval
DVT PPx Lovenox subQ
FULL CODE
I spent a total of 45 minutes with the patient or on the floor. More than 50% of this time involved counseling and coordination of care.
Anticipated Discharge: 24 - 48 hours
Subjective/Interval History
-
Date of Service: April 29, 2024
No acute distress sitting up comfortably in bed. Reports some improvement in abd pain. Had an episode of urinary incontinence this morning getting up from bed. Patient also endorses generalized weakness, limited ambulation during stay as a result.
Objective Data
-
Labs:
Laboratory Results
04/29/24
06:06
WBC Pending
Hgb Pending
Hct Pending
Plt Count Pending
Sodium Pending
Potassium Pending
Chloride Pending
Carbon Dioxide Pending
BUN Pending
Creatinine Pending
Glucose Pending
Calcium Pending
Vital Signs:
Vital Signs
Temp Pulse Resp BP Pulse Ox
98.9 F 119 18 141/73 94
04/29/24 03:29 04/29/24 03:29 04/29/24 03:29 04/29/24 03:29 04/29/24 03:29
I&O
04/27/24 04/28/24 04/29/24
06:59 06:59 06:59
Intake Total 1979 / 1979 1200 / 1200 1210 / 1210
Output Total 150 / 150
Balance 1830 / 1830 1200 / 1200 1210 / 1210
[2024-04-29 06:27] LABS: Hematocrit 32.2 % (37.0-47.0); Hemoglobin 11.1 g/dL (12.0-16.0); Mean Corp Hgb Conc. 34.5 g/dL (33.0-37.0); Mean Corpuscular Hgb 37.4 pg (27.0-31.0); Mean Corpuscular Volume 108.4 fL (81.0-99.0); Mean Platelet Volume 11.1 fL (7.4-10.4); Platelet Count 132 10^3/uL (130-400); Red Blood Cell Count 2.97 10^6/uL (4.20-5.40); Red Cell Dist. Width 18.3 % (11.5-14.5); White Blood Cell Count 8.6 10^3/uL (4.8-10.8)
[2024-04-29 07:00] LABS: Blood Urea Nitrogen 9 mg/dl (7-17); Calcium 7.9 mg/dl (8.4-10.2); Carbon Dioxide 26 mmol/L (22-30); Chloride 100 mmol/L (98-107); Estimated Creatinine Clearance > 125 ml/min; Glucose 85 mg/dl (70-99); Phosphorus 2.8 mg/dl (2.5-4.5); Potassium 3.5 mmol/L (3.5-5.1); Sodium 137 mmol/L (135-145); eGFR > 60.00
[2024-04-29 07:48] VITALS: BP 125/72
[2024-04-29] MEDS: FOLVITE 1 MG PO (08:09)
[2024-04-29] MEDS: TAMIFLU 75 MG PO ×2 (08:10→20:11)
[2024-04-29] MEDS: PROTONIX 40 MG PO (08:11)
[2024-04-29 08:53] LABS: ALT (SGPT) 36 U/L (0-35); AST (SGOT) 228 U/L (14-36); Albumin 3.2 g/dl (3.5-5.0); Alkaline Phosphatase 183 U/L (38-126); Direct Bilirubin 6.2 mg/dl (0.0-0.4); Total Bilirubin 7.6 mg/dl (0.2-1.3); Total Protein 6.2 g/dl (6.3-8.2)
--- NOTE | 2024-04-29 10:44 | W.PN.GI.CBS2 ---
Today's Communication / Plan
-
LFTs slightly improved
Continue supportive care
Sx could be exacerbation with n/v due to Influenza
LFTs elevated likely due to EtOH/Hep C. DF low, steroids not indicated (and would not give anyways with Influenza)
Normal GB on US
If pain not improved, consider abd CT
Mostly needs OP f/u for EtOH/Hep C with hepatosplenomeagly. Can do fibroscan to assess
Agreeable to EtOH abstinence
Assessment / Plan
-
Summary: 33yo female presents with 1 week cough, aches, chills, abd pain, n/v and Influenza A positive. She has chronic Hepatitis C, no prior rx. Also chronic alcohol, 1/2 bottle whiskey daily. US shows hepatosplenomegaly, normal GB. Plt 118,
INR 1.32. TBil 8.4
Impression:
Influenza A
RUQ pain worsened from baseline, possibly from n/v
Hepatitis C- not treated
EtOH hepatitis. DF = 25
Hepatosplenomegaly
Subjective
Subjective
Date of Service: April 29, 2024
Feeling tired. Abd pain relatively unchanged, not worse
Objective
Data Reviewed
Laboratory Data:
Laboratory Results
04/29/24 06:06
04/29/24 06:06
Laboratory Results
PT 16.6 Sec (11.4-14.6) H 04/27/24 07:28
INR 1.32 04/27/24 07:28
Phosphorus 2.8 mg/dl (2.5-4.5) 04/29/24 06:06
Magnesium 2.0 mg/dl (1.6-2.3) 04/29/24 06:06
Total Bilirubin 7.6 mg/dl (0.2-1.3) H 04/29/24 06:06
AST 228 U/L (14-36) H 04/29/24 06:06
ALT 36 U/L (0-35) H 04/29/24 06:06
Alkaline Phosphatase 183 U/L (38-126) H 04/29/24 06:06
Lipase 189 U/L (23-300) 04/26/24 11:20
Vital Signs and I&O:
Vital Signs
Temp Pulse Resp BP Pulse Ox
99.5 F 110 17 125/72 96
04/29/24 07:48 04/29/24 07:48 04/29/24 07:48 04/29/24 07:48 04/29/24 07:48
I&O
04/28/24 04/29/24 04/30/24
06:59 06:59 06:59
Intake Total 1200 / 1200 1690 / 1690
Balance 1200 / 1200 1690 / 1690
Physical Exam
Physical Exam
GI: Soft, Non Distended and Tender
[2024-04-29 11:20] VITALS: BP 152/91
[2024-04-29] MEDS: ROXICODONE 5 MG PO ×2 (14:33→20:46)
[2024-04-29 15:34] VITALS: BP 138/85
[2024-04-29] MEDS: LOVENOX 40 MG SC (17:04)
[2024-04-29 19:45] VITALS: BP 140/88
[2024-04-29] MEDS: VITAMIN B1 100 MG PO (20:11)
[2024-04-29 23:35] VITALS: BP 130/70
[2024-04-30] MEDS: DILAUDID 0.5 MG IV ×4 (00:27→20:13)
[2024-04-30 03:35] VITALS: BP 138/74
[2024-04-30] MEDS: ROXICODONE 5 MG PO (03:51)
[2024-04-30 06:29] LABS: Hematocrit 31.7 % (37.0-47.0); Mean Corp Hgb Conc. 34.7 g/dL (33.0-37.0); Mean Corpuscular Hgb 37.4 pg (27.0-31.0); Mean Corpuscular Volume 107.8 fL (81.0-99.0); Mean Platelet Volume 10.7 fL (7.4-10.4); Platelet Count 156 10^3/uL (130-400); Red Blood Cell Count 2.94 10^6/uL (4.20-5.40); Red Cell Dist. Width 19.2 % (11.5-14.5); White Blood Cell Count 8.7 10^3/uL (4.8-10.8)
[2024-04-30 06:51] LABS: ALT (SGPT) 34 U/L (0-35); AST (SGOT) 205 U/L (14-36); Alkaline Phosphatase 167 U/L (38-126); Blood Urea Nitrogen 8 mg/dl (7-17); Calcium 7.9 mg/dl (8.4-10.2); Carbon Dioxide 29 mmol/L (22-30); Chloride 100 mmol/L (98-107); Estimated Creatinine Clearance > 125 ml/min; Glucose 79 mg/dl (70-99); Magnesium 2.2 mg/dl (1.6-2.3); Phosphorus 2.9 mg/dl (2.5-4.5); Potassium 3.6 mmol/L (3.5-5.1); Sodium 139 mmol/L (135-145); Total Bilirubin 8.3 mg/dl (0.2-1.3); Total Protein 6.1 g/dl (6.3-8.2); eGFR > 60.00
[2024-04-30 07:05] VITALS: BP 109/65
--- NOTE | 2024-04-30 07:25 | W.PN.HOSP.TC ---
Today's Communication/Plan
-
Tamiflu
cont diet as tolerated, switched to Low fat
cont MSAS protocol, ativan prn
pain control, prn IV pain meds switched to PO oxycodone 5 mg mod pain, 10 mg severe pain
IV remains available for severe breakthrough pain
monitor LFTs
CT as per GI
Assessment / Plan
Assessment / Plan
Physical Exam
General: Obese, no acute distress, appears comfortable at this time
HEENT: Normocephalic Atraumatic PERRLA
Respiratory: Clear; No Wheezes
Cardiac: S1/S2 and Regular Rhythm
GI: Tenderness right upper Quadrant, right side abdomen, epigastric, bowel sounds present
Musculoskeletal: No Edema
Skin: Warm and Dry; No Rash
Neuro: AO x 3
Psych: Calm
33F Anxiety/Depression ETOH here for Flu and Prolonged QT
CXR
IMPRESSION:
No acute cardiopulmonary process.
Abdomen US:
IMPRESSION:
1. Hepatomegaly and Increased echogenicity in the liver, compatible with underlying hepatocellular disease, which most commonly relates to fatty infiltration of the liver.
2. No sonographic evidence for cholelithiasis or acute cholecystitis.
3. Splenomegaly.
CT abdomen/pelvis with contrast:
1. VERY SEVERE HEPATOMEGALY and SEVERE DIFFUSE HEPATIC STEATOSIS with an interval increase in size of the liver since 01/01/2023 suggesting ACUTE HEPATITIS with hepatic edema.
2. Band of increased attenuation in the lateral segment of the left lobe of the liver. Diagnostic possibilities are (1) focal fatty sparing or (2) subcapsular hemorrhage.
3. Portal hypertension with moderate splenomegaly.
4. Mild apolinar hepatis and portacaval lymphadenopathy.
5. Mild acute on chronic pancolitis.
6. Moderate diverticulosis in the descending colon.
7. 4.9 cm complex cyst in the left ovary which appears unchanged.
Shortness of Breath
Influenza A
Nausea/Vomiting
-CXR without e/o superimposed pneumonia
-Tamiflu
-BRAT diet advanced to Regular, tolerating, IVF completed, Regular diet switched to Low Fat given severe hepatic steatosis as noted on imaging
-CTA chest appreciated no central PE
Prolonged Qtc
-improving though remains prolonged
-avoid QT prolonging agents
-monitor and replete electrolytes as necessary
-since improved
Hypokalemia
Hypophosphatemia
monitor and replete as necessary
Elevated Liver Enzymes
Persistent Bilirubin Elevation
Alcohol Abuse
Alcohol Hepatitis
Hep C
-Abd US appreciated as above
-Mild PT prolongation, INR well within normal range
-MSAS protocol with IV ativan PRN
-Pain control, IV pain med switched to po prn oxycodone 5 mg mod pain 10 mg severe pain, IV remains available for severe break through pain
-Thiamine Folate supplementation
-ETOH cessation counseled
-GI eval appreciated no indication for steroids at this time, outpatient follow up recommended
Generalized weakness/reporting impaired ambulation
-PT/OT eval appreciated no needs
DVT PPx Lovenox subQ
FULL CODE
I spent a total of 40 minutes with the patient or on the floor. More than 50% of this time involved counseling and coordination of care.
Anticipated Discharge: 24 - 48 hours
Subjective/Interval History
-
Date of Service: April 30, 2024
Seen and examined at bedside in no acute distress resting comfortably in bed. Pain abdomen however remains uncontrolled requiring IV severe breakthrough pain. Denies constipation.
Objective Data
-
Labs:
Laboratory Results
04/30/24
05:54
WBC 8.7
Hgb 11.0 L
Hct 31.7 L
Plt Count 156
Sodium 139
Potassium 3.6
Chloride 100
Carbon Dioxide 29
BUN 8
Creatinine 0.5 L
Glucose 79
Calcium 7.9 L
Total Bilirubin 8.3 H
AST 205 H
ALT 34
Alkaline Phosphatase 167 H
Vital Signs:
Vital Signs
Temp Pulse Resp BP Pulse Ox
98.5 F 102 18 138/74 95
04/30/24 03:35 04/30/24 03:35 04/30/24 03:35 04/30/24 03:35 04/30/24 03:35
I&O
04/29/24 04/30/24 05/01/24
06:59 06:59 06:59
Intake Total 1690 / 1690 1680 / 1680
Balance 1690 / 1690 1680 / 1680
[2024-04-30] MEDS: PROTONIX 40 MG PO (07:54)
[2024-04-30] MEDS: TAMIFLU 75 MG PO ×2 (07:54→20:12)
[2024-04-30] MEDS: FOLVITE 1 MG PO (07:54)
[2024-04-30] MEDS: VITAMIN B1 100 MG PO ×2 (07:55→20:07)
--- NOTE | 2024-04-30 09:05 | PTOTSP ---
attempted intervention. pt reports she has been up throughout this admission, completing functional tasks without assistance. pt was wanting to take a nap and did not want to get OOB. RN updated. pt declines any need for therapy, will sign off.
[2024-04-30] MEDS: ROXICODONE 10 MG PO ×2 (09:51→17:23)
[2024-04-30 10:48] LABS: INR 1.36; PT 17.1 Sec (11.4-14.6)
[2024-04-30 10:55] LABS: Iron 103 ug/dl (37-170)
[2024-04-30 11:01] VITALS: BP 114/65
[2024-04-30 11:05] LABS: Percent Saturation 53 % (20-50); Total Iron Binding Capacity 192 ug/dl (265-497)
[2024-04-30 11:27] LABS: TSH Reflex To Free T4 6.22 uIU/ml (0.47-4.68)
[2024-04-30 11:55] LABS: Free T4 1.56 ng/dl (0.78-2.19)
[2024-04-30 12:02] LABS: Folate 3.3 ng/ml (2.76-20); Vitamin B12 729 pg/ml (239-931)
--- NOTE | 2024-04-30 12:42 | W.PN.GI.CBS2 ---
Today's Communication / Plan
-
CT abd / pel with contrast
Assessment / Plan
-
Summary: 33yo female presents with 1 week cough, aches, chills, abd pain, n/v and Influenza A positive. She has chronic Hepatitis C, no prior rx. Also chronic alcohol, 1/2 bottle whiskey daily. US shows hepatosplenomegaly, normal GB. Plt 118,
INR 1.32. TBil 8.4
Impression:
Influenza A
RUQ pain worsened from baseline, possibly from n/v
Hepatitis C- not treated
EtOH hepatitis. DF = 25 04/28 .INR is stable. Bilirubin was mildly elevated this a.m. to 8.3./ALT/alkaline phosphatase downtrending DF -26.7.
Hepatosplenomegaly
plan
Her current GI symptoms can be secondary to influenza. But Since patient continues to have abdominal pain will consider CT abdomen/pelvis with contrast
Continue trend LFT/INR. DF < 32 . No role of steroid
Patient needs outpatient GI/hepatology follow-up for alcoholic hepatitis/hep C treatment
Advised on alcohol abstinence
Continue further care as per medical team
Total Time Spent with Patient (in minutes): 35
Subjective
Subjective
Date of Service: April 30, 2024
Patient continues to have abdominal pain with some nausea
Objective
Data Reviewed
Laboratory Data:
Laboratory Results
04/30/24 05:54
04/30/24 05:54
Laboratory Results
PT 17.1 Sec (11.4-14.6) H 04/30/24 10:29
INR 1.36 04/30/24 10:29
Phosphorus 2.9 mg/dl (2.5-4.5) 04/30/24 05:54
Magnesium 2.2 mg/dl (1.6-2.3) 04/30/24 05:54
Total Bilirubin 8.3 mg/dl (0.2-1.3) H 04/30/24 05:54
AST 205 U/L (14-36) H 04/30/24 05:54
ALT 34 U/L (0-35) 04/30/24 05:54
Alkaline Phosphatase 167 U/L (38-126) H 04/30/24 05:54
Lipase 189 U/L (23-300) 04/26/24 11:20
Vital Signs and I&O:
Vital Signs
Temp Pulse Resp BP Pulse Ox
98.2 F 105 19 114/65 97
04/30/24 11:01 04/30/24 11:01 04/30/24 11:01 04/30/24 11:01 04/30/24 11:01
I&O
04/29/24 04/30/24 05/01/24
06:59 06:59 06:59
Intake Total 1690 / 1690 1680 / 1680
Balance 1690 / 1690 1680 / 1680
Physical Exam
Physical Exam
GI: Soft, Non Distended and Tender (Epigastric tenderness)
[2024-04-30 14:40] LABS: Urine Albumin 1+ (Neg - Trace); Urine Bilirubin 3+ (Negative); Urine Character Very Cloudy (Clear); Urine Color Amber; Urine Glucose Negative (Negative); Urine Ketone 1+ (Negative); Urine Leukocyte Negative (Negative); Urine Nitrite Negative (Negative); Urine Occult Blood Negative (Negative); Urine Urobilinogen 4+ (Neg - 1+); Urine pH 6.5 (5.0-9.0)
[2024-04-30 14:55] LABS: Urine Bacteria Moderate (Negative); Urine Red Blood Cell 0-2 /HPF (0-2); Urine Squamous Cell 0-2 /LPF (Few); Urine White Cell 0-2 /HPF (0-5)
[2024-04-30 15:05] VITALS: BP 143/75
--- NOTE | 2024-04-30 15:19 | PTCARENOTE ---
patient continues with right side abd pain, mild nausea, tolerating diet, medicated with PRN Roxicodone and Dilaudid with some relief. at 13:08 reported, 'I feel like I'm getting a UTI!.' denied burning/painful urination, urgency, denies
difficulty with urination or feeling that bladder is full or not emptied. 'It just doesn't feel right!'. Dr. Fernando made aware and requested urine sample with reflex to couture and he agreed. independent in room, vss, will continue to monitor.
[2024-04-30] MEDS: LOVENOX 40 MG SC (17:24)
[2024-04-30 19:00] VITALS: BP 155/93
[2024-04-30] MEDS: SENOKOT-S 1 TABLET PO (20:07)
[2024-04-30 23:00] VITALS: BP 138/68
[2024-05-01] MEDS: ROXICODONE 10 MG PO ×2 (01:34→20:23)
--- NOTE | 2024-05-01 02:08 | DOWNTIME ---
There was a [employer] Downtime on 05/01/2024 from 0100 to 05/01/2023 at 0205 . Downtime documentation of patient's care, including medication administrations, has been reconciled in the electronic record per guidelines. Refer to the
patient's paper chart under the miscellaneous tab to see printed paper medication records and downtime forms.
[2024-05-01 03:00] VITALS: BP 118/68
[2024-05-01] MEDS: DILAUDID 0.5 MG IV ×3 (06:14→21:33)
[2024-05-01 06:28] LABS: Hematocrit 32.3 % (37.0-47.0); Hemoglobin 10.8 g/dL (12.0-16.0); Mean Corp Hgb Conc. 33.4 g/dL (33.0-37.0); Mean Corpuscular Hgb 36.9 pg (27.0-31.0); Mean Corpuscular Volume 110.2 fL (81.0-99.0); Mean Platelet Volume 10.5 fL (7.4-10.4); Platelet Count 200 10^3/uL (130-400); Red Blood Cell Count 2.93 10^6/uL (4.20-5.40); Red Cell Dist. Width 19.6 % (11.5-14.5); White Blood Cell Count 8.6 10^3/uL (4.8-10.8)
[2024-05-01 06:50] LABS: ALT (SGPT) 31 U/L (0-35); AST (SGOT) 194 U/L (14-36); Albumin 2.9 g/dl (3.5-5.0); Alkaline Phosphatase 157 U/L (38-126); Blood Urea Nitrogen 7 mg/dl (7-17); Carbon Dioxide 32 mmol/L (22-30); Chloride 99 mmol/L (98-107); Estimated Creatinine Clearance > 125 ml/min; Glucose 82 mg/dl (70-99); Magnesium 2.2 mg/dl (1.6-2.3); Phosphorus 3.1 mg/dl (2.5-4.5); Potassium 3.4 mmol/L (3.5-5.1); Sodium 137 mmol/L (135-145); Total Bilirubin 9.1 mg/dl (0.2-1.3); Total Protein 6.1 g/dl (6.3-8.2); eGFR > 60.00
--- NOTE | 2024-05-01 07:05 | W.PN.HOSP.TC ---
Today's Communication/Plan
-
replete potassium
pain control
Last day for Tamiflu
monitor LFTs
Low fat diet
Assessment / Plan
Assessment / Plan
Physical Exam
General: Obese, no acute distress, appears comfortable at this time
HEENT: Normocephalic Atraumatic PERRLA
Respiratory: Clear; No Wheezes
Cardiac: S1/S2 and Regular Rhythm
GI: Tenderness right upper Quadrant, right side abdomen, epigastric, bowel sounds present
Musculoskeletal: No Edema
Skin: Warm and Dry; No Rash, jaundice
Neuro: AO x 3
Psych: Calm
33F Anxiety/Depression ETOH here for Flu and Prolonged QT
CXR
IMPRESSION:
No acute cardiopulmonary process.
Abdomen US:
IMPRESSION:
1. Hepatomegaly and Increased echogenicity in the liver, compatible with underlying hepatocellular disease, which most commonly relates to fatty infiltration of the liver.
2. No sonographic evidence for cholelithiasis or acute cholecystitis.
3. Splenomegaly.
CT abdomen/pelvis with contrast:
1. VERY SEVERE HEPATOMEGALY and SEVERE DIFFUSE HEPATIC STEATOSIS with an interval increase in size of the liver since 01/01/2023 suggesting ACUTE HEPATITIS with hepatic edema.
2. Band of increased attenuation in the lateral segment of the left lobe of the liver. Diagnostic possibilities are (1) focal fatty sparing or (2) subcapsular hemorrhage.
3. Portal hypertension with moderate splenomegaly.
4. Mild apolinar hepatis and portacaval lymphadenopathy.
5. Mild acute on chronic pancolitis.
6. Moderate diverticulosis in the descending colon.
7. 4.9 cm complex cyst in the left ovary which appears unchanged.
MR Abd W/o and W contrast:
-Severe hepatomegaly with hepatic steatosis and findings of acute hepatitis. There is an area of focal fatty sparing within the lateral left hepatic lobe which correlates with the previously seen abnormality on prior CT. There is no evidence of
hematoma within the liver.
-No evidence of choledocholithiasis or biliary obstruction.
-There is small volume pericholecystic free fluid which can be seen as a sequelae of liver disease.
-Splenomegaly, similar to prior.
Shortness of Breath
Influenza A
Nausea/Vomiting
-CXR without e/o superimposed pneumonia
-Tamiflu last day 05/01/24
-BRAT diet advanced to Regular, tolerating, IVF completed, Regular diet switched to Low Fat given severe hepatic steatosis as noted on imaging
-CTA chest appreciated no central PE
Prolonged Qtc
-improving though remains prolonged
-avoid QT prolonging agents
-monitor and replete electrolytes as necessary
-since improved
Hypokalemia
Hypophosphatemia
monitor and replete as necessary
Elevated Liver Enzymes
Persistent Bilirubin Elevation
Alcohol Abuse
Alcohol Hepatitis
Hep C
Acute Hepatitis possibly 2/2 Flu
-Abd US, CT, MRI appreciated as above
-Mild PT prolongation, INR well within normal range
-MSAS protocol with IV ativan PRN
-Pain control, IV pain med switched to po prn oxycodone 5 mg mod pain 10 mg severe pain, IV remains available for severe break through pain
-Thiamine Folate supplementation
-ETOH cessation counseled
-GI eval appreciated no indication for steroids at this time, outpatient follow up recommended
Generalized weakness/reporting impaired ambulation
-PT/OT eval appreciated no needs
DVT PPx Lovenox subQ
FULL CODE
I spent a total of 40 minutes with the patient or on the floor. More than 50% of this time involved counseling and coordination of care.
Anticipated Discharge: 24 - 48 hours
Subjective/Interval History
-
Date of Service: May 01, 2024
Reports some improvement in pain though not resolved. Continues to require prn severe break through IV pain med occasionally. No significant ETOH withdrawal symptoms since 04/29/24
Objective Data
-
Labs:
Laboratory Results
05/01/24
05:53
WBC 8.6
Hgb 10.8 L
Hct 32.3 L
Plt Count 200 D
Sodium 137
Potassium 3.4 L
Chloride 99
Carbon Dioxide 32 H
BUN 7
Creatinine 0.4 L
Glucose 82
Calcium 8.0 L
Total Bilirubin 9.1 H
AST 194 H
ALT 31
Alkaline Phosphatase 157 H
Vital Signs:
Vital Signs
Temp Pulse Resp BP Pulse Ox
99.2 F 99 16 118/68 94
05/01/24 03:00 05/01/24 03:00 05/01/24 03:00 05/01/24 03:00 05/01/24 03:00
I&O
04/30/24 05/01/24 05/02/24
06:59 06:59 06:59
Intake Total 1680 / 1680 3000 / 3000
Balance 1680 / 1680 3000 / 3000
[2024-05-01 07:30] VITALS: BP 115/70
[2024-05-01] MEDS: KCL 40 MEQ PO (08:05)
[2024-05-01] MEDS: VITAMIN B1 100 MG PO ×2 (08:05→20:23)
[2024-05-01] MEDS: PROTONIX 40 MG PO (08:05)
[2024-05-01] MEDS: FOLVITE 1 MG PO (08:05)
[2024-05-01] MEDS: TAMIFLU 75 MG PO ×2 (08:06→20:23)
[2024-05-01] MEDS: SENOKOT-S 1 TABLET PO ×2 (08:06→20:23)
[2024-05-01] MEDS: ROXICODONE 5 MG PO (10:12)
[2024-05-01 11:10] VITALS: BP 125/80
[2024-05-01] MEDS: KCL ELIXIR 40 MEQ PO (12:58)
--- NOTE | 2024-05-01 14:08 | CM ---
Met with patient at bedside.
Offered [facility] resources-declines.
PLAN: home, no needs, declines [facility] resources
mother to transport
[2024-05-01 15:18] VITALS: BP 116/69
[2024-05-01 19:00] VITALS: BP 140/83
[2024-05-01] MEDS: LOVENOX 40 MG SC (20:53)
[2024-05-01 23:00] VITALS: BP 115/60
[2024-05-01] MEDS: OCEAN, SALINE MIST 50 SPRAYS NASAL (23:12)
[2024-05-02] MEDS: ROXICODONE 10 MG PO ×3 (02:20→15:19)
[2024-05-02 03:00] VITALS: BP 128/72
[2024-05-02] MEDS: DILAUDID 0.5 MG IV ×3 (05:53→19:11)
[2024-05-02 07:05] LABS: Hematocrit 30.9 % (37.0-47.0); Hemoglobin 10.8 g/dL (12.0-16.0); Mean Corpuscular Hgb 37.4 pg (27.0-31.0); Mean Corpuscular Volume 106.9 fL (81.0-99.0); Mean Platelet Volume 11.1 fL (7.4-10.4); Platelet Count 253 10^3/uL (130-400); Red Blood Cell Count 2.89 10^6/uL (4.20-5.40); Red Cell Dist. Width 19.9 % (11.5-14.5); White Blood Cell Count 10.8 10^3/uL (4.8-10.8)
--- NOTE | 2024-05-02 07:25 | W.PN.HOSP.TC ---
Today's Communication/Plan
-
pain control
monitor LFTs
cont monitoring on Telemetry
encourage out of bed to chair, ambulation
ok to shower
Assessment / Plan
Assessment / Plan
Physical Exam
General: Obese, no acute distress, appears comfortable at this time
HEENT: Normocephalic Atraumatic PERRLA scleral icterus
Respiratory: Clear; No Wheezes
Cardiac: S1/S2 and Regular Rhythm
GI: Tenderness right upper Quadrant, right side abdomen, epigastric, bowel sounds present
Musculoskeletal: No Edema
Skin: Warm and Dry; No Rash, jaundice
Neuro: AO x 3
Psych: Calm
33F Anxiety/Depression ETOH here for Flu and Prolonged QT
CXR
IMPRESSION:
No acute cardiopulmonary process.
Abdomen US:
IMPRESSION:
1. Hepatomegaly and Increased echogenicity in the liver, compatible with underlying hepatocellular disease, which most commonly relates to fatty infiltration of the liver.
2. No sonographic evidence for cholelithiasis or acute cholecystitis.
3. Splenomegaly.
CT abdomen/pelvis with contrast:
1. VERY SEVERE HEPATOMEGALY and SEVERE DIFFUSE HEPATIC STEATOSIS with an interval increase in size of the liver since 01/01/2023 suggesting ACUTE HEPATITIS with hepatic edema.
2. Band of increased attenuation in the lateral segment of the left lobe of the liver. Diagnostic possibilities are (1) focal fatty sparing or (2) subcapsular hemorrhage.
3. Portal hypertension with moderate splenomegaly.
4. Mild apolinar hepatis and portacaval lymphadenopathy.
5. Mild acute on chronic pancolitis.
6. Moderate diverticulosis in the descending colon.
7. 4.9 cm complex cyst in the left ovary which appears unchanged.
MR Abd W/o and W contrast:
-Severe hepatomegaly with hepatic steatosis and findings of acute hepatitis. There is an area of focal fatty sparing within the lateral left hepatic lobe which correlates with the previously seen abnormality on prior CT. There is no evidence of
hematoma within the liver.
-No evidence of choledocholithiasis or biliary obstruction.
-There is small volume pericholecystic free fluid which can be seen as a sequelae of liver disease.
-Splenomegaly, similar to prior.
Shortness of Breath
Influenza A
Nausea/Vomiting
-CXR without e/o superimposed pneumonia
-completed 5 days Tamiflu
-CTA chest appreciated no central PE
-Low Fat diet, tolerating
Prolonged Qtc
-avoid QT prolonging agents
-monitor and replete electrolytes as necessary
-since improved
Hypokalemia
Hypophosphatemia
monitor and replete as necessary
Elevated Liver Enzymes
Persistent Bilirubin Elevation
Alcohol Abuse
Alcohol Hepatitis
Hep C
Acute Hepatitis possibly 2/2 Flu
-Abd US, CT, MRI appreciated as above
-Mild PT prolongation, INR well within normal range
-MSAS protocol with IV ativan PRN
-Pain control, oxycodone 5 mg TID (to be held for sedation, delayed administration by 1h if prn opiate pain med given prior, prn opiate pain meds to be given for an at least an hour after scheduled oxycodone dose)
-Oxycodone 10 mg prn mod severe pain, prn IV pain med remains available for severe break through pain
-Thiamine Folate supplementation
-ETOH cessation counseled
-GI eval appreciated no indication for steroids at this time, outpatient follow up recommended
Episode Epistaxis 05/01/24 since resolved
[place] Mist nasal spray prn dry nose
Outpt ENT eval if persistent recurrence epistaxis
Episode NSVT 8 beats 05/02/24
-asymptomatic
-cont monitoring on telemetry
DVT PPx Lovenox subQ
FULL CODE
I spent a total of 40 minutes with the patient or on the floor. More than 50% of this time involved counseling and coordination of care.
Anticipated Discharge: 24 - 48 hours
Subjective/Interval History
-
Date of Service: May 02, 2024
Pain remains persistent. Patient also reports episodes nausea vomiting yesterday with associate epistaxis since resolved.
Objective Data
-
Labs:
Laboratory Results
05/02/24 05/02/24
05:50 06:00
WBC 10.8
Hgb 10.8 L
Hct 30.9 L
Plt Count 253 D
Sodium Pending
Potassium Pending
Chloride Pending
Carbon Dioxide Pending
BUN Pending
Creatinine Pending
Glucose Pending
Calcium Pending
Total Bilirubin Pending
AST Pending
ALT Pending
Alkaline Phosphatase Pending
Vital Signs:
Vital Signs
Temp Pulse Resp BP Pulse Ox
98.5 F 92 14 128/72 95
05/02/24 03:00 05/02/24 03:00 05/02/24 03:00 05/02/24 03:00 05/02/24 03:00
I&O
05/01/24 05/02/24 05/03/24
06:59 06:59 06:59
Intake Total 3000 / 3000 1200 / 1200
Balance 3000 / 3000 1200 / 1200
[2024-05-02 07:30] VITALS: BP 105/69
[2024-05-02 08:22] LABS: ALT (SGPT) 30 U/L (0-35); AST (SGOT) 201 U/L (14-36); Albumin 2.9 g/dl (3.5-5.0); Alkaline Phosphatase 151 U/L (38-126); Blood Urea Nitrogen 5 mg/dl (7-17); Calcium 7.9 mg/dl (8.4-10.2); Carbon Dioxide 30 mmol/L (22-30); Chloride 99 mmol/L (98-107); Estimated Creatinine Clearance > 125 ml/min; Glucose 89 mg/dl (70-99); Phosphorus 2.2 mg/dl (2.5-4.5); Potassium 3.6 mmol/L (3.5-5.1); Sodium 137 mmol/L (135-145); Total Bilirubin 10.6 mg/dl (0.2-1.3); Total Protein 6.1 g/dl (6.3-8.2); eGFR > 60.00
[2024-05-02] MEDS: PROTONIX 40 MG PO (09:28)
[2024-05-02] MEDS: VITAMIN B1 100 MG PO ×2 (09:28→20:36)
[2024-05-02] MEDS: FOLVITE 1 MG PO (09:28)
[2024-05-02] MEDS: SENOKOT-S 1 TABLET PO ×2 (09:29→20:36)
[2024-05-02 11:40] VITALS: BP 125/65
--- NOTE | 2024-05-02 12:18 | W.PN.GI.CBS2 ---
Today's Communication / Plan
-
Outpatient GI follow-up
Assessment / Plan
-
Summary: 33yo female presents with 1 week cough, aches, chills, abd pain, n/v and Influenza A positive. She has chronic Hepatitis C, no prior rx. Also chronic alcohol, 1/2 bottle whiskey daily. US shows hepatosplenomegaly, normal GB. Plt 118,
INR 1.32. TBil 8.4
Impression:
Influenza A
RUQ pain worsened from baseline
Hepatitis C- not treated
EtOH hepatitis. DF = 25 04/28 .INR is stable.
Hepatosplenomegaly
U tox - positive for opioids/ benzo
MRI abdome 05/01
IMPRESSION:
Severe hepatomegaly with hepatic steatosis and findings of acute hepatitis. There is an area of focal fatty sparing within the lateral left hepatic lobe which correlates with the previously seen abnormality on prior CT. There is no evidence of
hematoma within the liver.
No evidence of choledocholithiasis or biliary obstruction.
There is small volume pericholecystic free fluid which can be seen as a sequelae of liver disease.
Splenomegaly, similar to prior.
CT abd / pel with IV 04/30
IMPRESSION:
1. VERY SEVERE HEPATOMEGALY and SEVERE DIFFUSE HEPATIC STEATOSIS with an interval increase in size of the liver since 01/01/2023 suggesting ACUTE HEPATITIS with hepatic edema.
2. Band of increased attenuation in the lateral segment of the left lobe of the liver. Diagnostic possibilities are (1) focal fatty sparing or (2) subcapsular hemorrhage.
3. Portal hypertension with moderate splenomegaly.
4. Mild apolinar hepatis and portacaval lymphadenopathy.
5. Mild acute on chronic pancolitis.
6. Moderate diverticulosis in the descending colon.
7. 4.9 cm complex cyst in the left ovary which appears unchanged.
plan
Discussed CT/MRI results with patient/hospitalist. Imaging finding of possible acute hepatitis can be multifactorial -component of acute alcohol hepatitis/influenza infection superimposed with chronic hepatitis from hep C/alcohol abuse .Her current
GI symptoms can be secondary to influenza.
Initial DF less than 32. Anyway we will hold off on steroids with active influenza infection
Patient needs outpatient GI/hepatology follow-up for alcoholic hepatitis/hep C treatment-
Advised on alcohol abstinence
Continue further care as per medical team. Will sign off. Call us back if any questions
Total Time Spent with Patient (in minutes): 35
Subjective
Subjective
Date of Service: May 02, 2024
Abdominal pain somewhat better. Tolerating diet to some extent
Objective
Data Reviewed
Laboratory Data:
Laboratory Results
05/02/24 05:50
05/02/24 07:37
Laboratory Results
PT 17.1 Sec (11.4-14.6) H 04/30/24 10:29
INR 1.36 04/30/24 10:29
Phosphorus 2.2 mg/dl (2.5-4.5) L 05/02/24 07:37
Magnesium 2.0 mg/dl (1.6-2.3) 05/02/24 07:37
Total Bilirubin 10.6 mg/dl (0.2-1.3) H 05/02/24 07:37
AST 201 U/L (14-36) H 05/02/24 07:37
ALT 30 U/L (0-35) 05/02/24 07:37
Alkaline Phosphatase 151 U/L (38-126) H 05/02/24 07:37
Lipase 189 U/L (23-300) 04/26/24 11:20
Vital Signs and I&O:
Vital Signs
Temp Pulse Resp BP Pulse Ox
98.0 F 93 14 105/69 94
05/02/24 07:30 05/02/24 07:30 05/02/24 07:30 05/02/24 07:30 05/02/24 07:30
I&O
05/01/24 05/02/2425
06:59 06:59 06:59
Intake Total 3000 / 3000 1200 / 1200
Balance 3000 / 3000 1200 / 1200
Physical Exam
Physical Exam
GI: Soft, Non Distended and Tender (Upper abdominal tenderness)
--- NOTE | 2024-05-02 14:03 | PTCARENOTE ---
Pt with 8 beat run of vtach, HR up into the 120's. Dr. Fernando made aware. continuing to monitor.
[2024-05-02 15:30] VITALS: BP 130/78
[2024-05-02] MEDS: LOVENOX 40 MG SC (17:40)
[2024-05-02] MEDS: ROXICODONE 5 MG PO ×2 (17:40→21:38)
[2024-05-02 19:46] VITALS: BP 136/75
[2024-05-02 23:58] VITALS: BP 121/76
[2024-05-03] MEDS: DILAUDID 0.5 MG IV ×3 (01:53→22:31)
[2024-05-03 03:53] VITALS: BP 119/63
[2024-05-03] MEDS: ROXICODONE 10 MG PO ×3 (06:10→18:16)
[2024-05-03 06:40] LABS: Hematocrit 31.5 % (37.0-47.0); Hemoglobin 10.6 g/dL (12.0-16.0); Mean Corp Hgb Conc. 33.7 g/dL (33.0-37.0); Mean Corpuscular Hgb 36.8 pg (27.0-31.0); Mean Corpuscular Volume 109.4 fL (81.0-99.0); Mean Platelet Volume 10.7 fL (7.4-10.4); Platelet Count 279 10^3/uL (130-400); Red Blood Cell Count 2.88 10^6/uL (4.20-5.40); Red Cell Dist. Width 18.9 % (11.5-14.5); White Blood Cell Count 10.9 10^3/uL (4.8-10.8)
--- NOTE | 2024-05-03 07:07 | W.PN.HOSP.TC ---
Today's Communication/Plan
-
cont pain control
diet adjusted low fat and low lactose
prn compazine nausea
encourage out of bed to chair/ambulation
Lovenox discontinued due to persistent intermittent epistaxis
cont SCD DVT ppx
Assessment / Plan
Assessment / Plan
Physical Exam
General: Obese, no acute distress, appears comfortable at this time
HEENT: Normocephalic Atraumatic PERRLA scleral icterus
Respiratory: Clear; No Wheezes
Cardiac: S1/S2 and Regular Rhythm
GI: Tenderness right upper Quadrant, right side abdomen, epigastric, bowel sounds present
Musculoskeletal: No Edema
Skin: Warm and Dry; No Rash, jaundice
Neuro: AO x 3
Psych: Calm
33F Anxiety/Depression ETOH here for Flu, Prolonged QT, and Acute Hepatitis 2/2 Flu vs Hep C vs ETOH vs combination of aforementioned
CXR
IMPRESSION:
No acute cardiopulmonary process.
Abdomen US:
IMPRESSION:
1. Hepatomegaly and Increased echogenicity in the liver, compatible with underlying hepatocellular disease, which most commonly relates to fatty infiltration of the liver.
2. No sonographic evidence for cholelithiasis or acute cholecystitis.
3. Splenomegaly.
CT abdomen/pelvis with contrast:
1. VERY SEVERE HEPATOMEGALY and SEVERE DIFFUSE HEPATIC STEATOSIS with an interval increase in size of the liver since 01/01/2023 suggesting ACUTE HEPATITIS with hepatic edema.
2. Band of increased attenuation in the lateral segment of the left lobe of the liver. Diagnostic possibilities are (1) focal fatty sparing or (2) subcapsular hemorrhage.
3. Portal hypertension with moderate splenomegaly.
4. Mild apolinar hepatis and portacaval lymphadenopathy.
5. Mild acute on chronic pancolitis.
6. Moderate diverticulosis in the descending colon.
7. 4.9 cm complex cyst in the left ovary which appears unchanged.
MR Abd W/o and W contrast:
-Severe hepatomegaly with hepatic steatosis and findings of acute hepatitis. There is an area of focal fatty sparing within the lateral left hepatic lobe which correlates with the previously seen abnormality on prior CT. There is no evidence of
hematoma within the liver.
-No evidence of choledocholithiasis or biliary obstruction.
-There is small volume pericholecystic free fluid which can be seen as a sequelae of liver disease.
-Splenomegaly, similar to prior.
Shortness of Breath
Influenza A
Nausea/Vomiting
-CXR without e/o superimposed pneumonia
-completed 5 days Tamiflu
-CTA chest appreciated no central PE
-prn Compazine nausea with improvement in QT prolongation as below
-Low Fat Low Lactose diet
Prolonged Qtc
-avoid QT prolonging agents
-monitor and replete electrolytes as necessary
-since improved
Hypokalemia
Hypophosphatemia
monitor and replete as necessary
Elevated Liver Enzymes
Persistent Bilirubin Elevation
Alcohol Abuse
Alcohol Hepatitis
Hep C
Acute Hepatitis possibly 2/2 Flu
-Abd US, CT, MRI appreciated as above
-Mild PT prolongation, INR well within normal range
-Withdrawal symptoms resolved, ok to dc MSAS protocol with IV ativan PRN
-Pain control, Oxycodone 10 mg Q6hprn mod severe pain, prn IV dilaudid severe break through pain
-Thiamine Folate supplementation
-ETOH cessation counseled
-GI eval appreciated no indication for steroids at this time, outpatient follow up recommended
Persistent Intermittent Epistaxis since 05/01/24
[place] Mist nasal spray prn dry nose
Outpt ENT eval
Episode NSVT 8 beats 05/02/24
-asymptomatic
-cont monitoring on telemetry
DVT PPx Lovenox subQ switched to SCD's only d/t epistaxis as above
FULL CODE
I spent a total of 40 minutes with the patient or on the floor. More than 50% of this time involved counseling and coordination of care.
Anticipated Discharge: 24 - 48 hours
Subjective/Interval History
-
Date of Service: May 03, 2024
abd pain persists. Patient also reports intermittent epistaxis nausea vomiting.
Objective Data
-
Labs:
Laboratory Results
05/03/24
06:00
WBC 10.9 H
Hgb 10.6 L
Hct 31.5 L
Plt Count 279
Sodium Pending
Potassium Pending
Chloride Pending
Carbon Dioxide Pending
BUN Pending
Creatinine Pending
Glucose Pending
Calcium Pending
Total Bilirubin Pending
AST Pending
ALT Pending
Alkaline Phosphatase Pending
Vital Signs:
Vital Signs
Temp Pulse Resp BP Pulse Ox
98.3 F 89 16 119/63 96
05/03/24 03:53 05/03/24 03:53 05/03/24 03:53 05/03/24 03:53 05/03/24 03:53
I&O
05/02/24 05/03/24 05/04/24
06:59 06:59 06:59
Intake Total 1200 / 1200 1760 / 1760
Balance 1200 / 1200 1760 / 1760
[2024-05-03 07:13] LABS: ALT (SGPT) 32 U/L (0-35); AST (SGOT) 231 U/L (14-36); Albumin 2.9 g/dl (3.5-5.0); Alkaline Phosphatase 152 U/L (38-126); Blood Urea Nitrogen 4 mg/dl (7-17); Carbon Dioxide 29 mmol/L (22-30); Chloride 98 mmol/L (98-107); Estimated Creatinine Clearance > 125 ml/min; Glucose 86 mg/dl (70-99); Magnesium 2.1 mg/dl (1.6-2.3); Phosphorus 2.6 mg/dl (2.5-4.5); Sodium 136 mmol/L (135-145); Total Protein 6.1 g/dl (6.3-8.2); eGFR > 60.00
[2024-05-03 07:19] LABS: Potassium 3.7 mmol/L (3.5-5.1)
[2024-05-03 07:30] VITALS: BP 112/61
[2024-05-03] MEDS: VITAMIN B1 100 MG PO ×2 (08:39→22:30)
[2024-05-03] MEDS: SENOKOT-S 1 TABLET PO ×2 (08:39→22:31)
[2024-05-03] MEDS: PROTONIX 40 MG PO (08:39)
[2024-05-03] MEDS: FOLVITE 1 MG PO (08:39)
[2024-05-03] MEDS: ROXICODONE 5 MG PO (08:40)
[2024-05-03 11:10] VITALS: BP 130/76
--- NOTE | 2024-05-03 13:09 | CM ---
Per activity note, patient functioning at baseline. Will return home at discharge. CM will continue to watch patient progress.
Plan: Case management will continue to follow and assist with dicharge planning. Hme when cleared for discharge.
[2024-05-03] MEDS: TYLENOL 500 MG PO (16:47)
[2024-05-03 17:07] VITALS: BP 114/67
[2024-05-03 20:22] VITALS: BP 124/68
[2024-05-03 22:47] VITALS: BP 125/74
[2024-05-04] MEDS: ROXICODONE 10 MG PO ×5 (02:44→22:40)
[2024-05-04 03:00] VITALS: BP 124/90
[2024-05-04 07:05] VITALS: BP 130/80
--- NOTE | 2024-05-04 07:19 | W.PN.HOSP.TC ---
Today's Communication/Plan
-
pain control
prn antiemetic compazine
low fat low lactose low residue diet
ENT eval
scheduled laxative for opiate induced constipation prophylaxis switched to prn due to patient report diarrhea
Assessment / Plan
Assessment / Plan
Physical Exam
General: Obese, mild moderate distress d/t nausea abd pain recent episode diarrhea and right nostril epistaxis
HEENT: Normocephalic Atraumatic PERRLA scleral icterus
Respiratory: Clear; No Wheezes
Cardiac: S1/S2 and Regular Rhythm
GI: Tenderness right upper Quadrant, right side abdomen, epigastric, bowel sounds present
Musculoskeletal: No Edema
Skin: Warm and Dry; No Rash, jaundice
Neuro: AO x 3
Psych: Calm
33F Anxiety/Depression ETOH here for Flu, Prolonged QT, and Acute Hepatitis 2/2 Flu vs Hep C vs ETOH vs combination of aforementioned
CXR
IMPRESSION:
No acute cardiopulmonary process.
Abdomen US:
IMPRESSION:
1. Hepatomegaly and Increased echogenicity in the liver, compatible with underlying hepatocellular disease, which most commonly relates to fatty infiltration of the liver.
2. No sonographic evidence for cholelithiasis or acute cholecystitis.
3. Splenomegaly.
CT abdomen/pelvis with contrast:
1. VERY SEVERE HEPATOMEGALY and SEVERE DIFFUSE HEPATIC STEATOSIS with an interval increase in size of the liver since 01/01/2023 suggesting ACUTE HEPATITIS with hepatic edema.
2. Band of increased attenuation in the lateral segment of the left lobe of the liver. Diagnostic possibilities are (1) focal fatty sparing or (2) subcapsular hemorrhage.
3. Portal hypertension with moderate splenomegaly.
4. Mild apolinar hepatis and portacaval lymphadenopathy.
5. Mild acute on chronic pancolitis.
6. Moderate diverticulosis in the descending colon.
7. 4.9 cm complex cyst in the left ovary which appears unchanged.
MR Abd W/o and W contrast:
-Severe hepatomegaly with hepatic steatosis and findings of acute hepatitis. There is an area of focal fatty sparing within the lateral left hepatic lobe which correlates with the previously seen abnormality on prior CT. There is no evidence of
hematoma within the liver.
-No evidence of choledocholithiasis or biliary obstruction.
-There is small volume pericholecystic free fluid which can be seen as a sequelae of liver disease.
-Splenomegaly, similar to prior.
Shortness of Breath
Influenza A
Nausea/Vomiting
-CXR without e/o superimposed pneumonia
-completed 5 days Tamiflu
-CTA chest appreciated no central PE
-prn Compazine nausea with improvement in QT prolongation as below
-Low Fat Low Lactose Low Residue diet
Prolonged Qtc
-avoid QT prolonging agents
-monitor and replete electrolytes as necessary
-since improved
Hypokalemia
Hypophosphatemia
monitor and replete as necessary
Elevated Liver Enzymes
Persistent Bilirubin Elevation
Alcohol Abuse
Alcohol Hepatitis
Hep C
Acute Hepatitis possibly 2/2 Flu
-Abd US, CT, MRI appreciated as above
-Mild PT prolongation, INR well within normal range
-Withdrawal symptoms resolved, ok to dc MSAS protocol with IV ativan PRN
-Pain control, Oxycodone 10 mg Q6hprn mod severe pain, prn IV dilaudid severe break through pain
-scheduled laxative for opiate induce constipation prophylaxis switched to prn due to diarrhea
-Thiamine Folate supplementation
-ETOH cessation counseled
-GI eval appreciated no indication for steroids at this time, outpatient follow up recommended
Persistent Intermittent Epistaxis since 05/01/24
ENT eval appreciated declined cauterization, saline Q1hWA, cont vasline
Episode NSVT 8 beats 05/02/24
-asymptomatic
-cont monitoring on telemetry, no further episodes noted
DVT PPx Lovenox subQ switched to SCD's only d/t epistaxis as above
FULL CODE
I spent a total of 40 minutes with the patient or on the floor. More than 50% of this time involved counseling and coordination of care.
Anticipated Discharge: 24 - 48 hours
Subjective/Interval History
-
Date of Service: May 04, 2024
Intermittent right nostril epistaxis persists. Patient also reports intermittent nausea/vomiting and diarrhea (scheduled laxative for opiate induce constipation prophylaxis since converted to prn)
Objective Data
-
Labs:
Laboratory Results
05/04/24
06:00
WBC Pending
Hgb Pending
Hct Pending
Plt Count Pending
Sodium Pending
Potassium Pending
Chloride Pending
Carbon Dioxide Pending
BUN Pending
Creatinine Pending
Glucose Pending
Calcium Pending
Total Bilirubin Pending
AST Pending
ALT Pending
Alkaline Phosphatase Pending
Vital Signs:
Vital Signs
Temp Pulse Resp BP Pulse Ox
98.2 F 103 16 124/90 96
05/04/24 03:00 05/04/24 03:00 05/04/24 03:00 05/04/24 03:00 05/04/24 03:00
I&O
05/03/24 05/04/24 05/05/24
06:59 06:59 06:59
Intake Total 1760 / 1760 1280 / 1280
Balance 1760 / 1760 1280 / 1280
[2024-05-04 09:15] LABS: Hematocrit 31.7 % (37.0-47.0); Hemoglobin 11.1 g/dL (12.0-16.0); Mean Corpuscular Hgb 37.5 pg (27.0-31.0); Mean Corpuscular Volume 107.1 fL (81.0-99.0); Mean Platelet Volume 10.9 fL (7.4-10.4); Platelet Count 315 10^3/uL (130-400); Red Blood Cell Count 2.96 10^6/uL (4.20-5.40); Red Cell Dist. Width 19.2 % (11.5-14.5)
[2024-05-04 09:30] LABS: ALT (SGPT) 34 U/L (0-35); AST (SGOT) 278 U/L (14-36); Alkaline Phosphatase 162 U/L (38-126); Blood Urea Nitrogen 3 mg/dl (7-17); Calcium 8.1 mg/dl (8.4-10.2); Carbon Dioxide 28 mmol/L (22-30); Chloride 97 mmol/L (98-107); Estimated Creatinine Clearance > 125 ml/min; Glucose 86 mg/dl (70-99); Magnesium 2.1 mg/dl (1.6-2.3); Phosphorus 2.8 mg/dl (2.5-4.5); Potassium 3.9 mmol/L (3.5-5.1); Sodium 134 mmol/L (135-145); Total Bilirubin 14.6 mg/dl (0.2-1.3); Total Protein 6.5 g/dl (6.3-8.2); eGFR > 60.00
[2024-05-04] MEDS: PROTONIX 40 MG PO (09:32)
[2024-05-04] MEDS: SENOKOT-S 1 TABLET PO (09:32)
[2024-05-04] MEDS: VITAMIN B1 100 MG PO ×2 (09:33→23:06)
[2024-05-04] MEDS: FOLVITE 1 MG PO (09:33)
[2024-05-04] MEDS: DILAUDID 0.5 MG IV (10:14)
[2024-05-04] MEDS: COMPAZINE 5 MG IV ×3 (10:15→22:48)
[2024-05-04 10:39] LABS: INR 1.39; PT 17.3 Sec (11.4-14.6)
[2024-05-04 10:40] LABS: APTT 50.8 Sec (23.4-35.0)
[2024-05-04 11:05] VITALS: BP 123/65
[2024-05-04 11:25] VITALS: BP 103/63
--- NOTE | 2024-05-04 11:51 | CON.MD ---
Consultation - Medical
-
dictated.
mild R epistaxis, daily, x 2 weeks. improving with saline once daily, vaseline.
nose very dry. some dry crusting in R mid nasal cavity. compounded by coagulopathy.
offered cautery, declined.
increase saline to q 1hour when awake, cont vaseline, will f/u if persists
[2024-05-04] MEDS: OCEAN, SALINE MIST 1 SPRAYS NASAL ×3 (13:28→23:06)
[2024-05-04 15:05] VITALS: BP 109/62
[2024-05-04 19:38] VITALS: BP 122/62
[2024-05-05] VITALS (7 sets, daily range): BP systolic 110–128; BP diastolic 62–81
[2024-05-05] MEDS: DILAUDID 0.5 MG IV ×4 (00:41→21:41)
[2024-05-05] MEDS: ROXICODONE 10 MG PO ×4 (04:03→18:21)
[2024-05-05 06:40] LABS: Hemoglobin 10.8 g/dL (12.0-16.0); Mean Corp Hgb Conc. 34.8 g/dL (33.0-37.0); Mean Corpuscular Volume 106.2 fL (81.0-99.0); Mean Platelet Volume 10.6 fL (7.4-10.4); Platelet Count 310 10^3/uL (130-400); Red Blood Cell Count 2.92 10^6/uL (4.20-5.40); Red Cell Dist. Width 18.6 % (11.5-14.5); White Blood Cell Count 12.3 10^3/uL (4.8-10.8)
[2024-05-05 07:09] LABS: ALT (SGPT) 31 U/L (0-35); AST (SGOT) 276 U/L (14-36); Albumin 2.7 g/dl (3.5-5.0); Alkaline Phosphatase 154 U/L (38-126); Blood Urea Nitrogen 2 mg/dl (7-17); Carbon Dioxide 29 mmol/L (22-30); Chloride 95 mmol/L (98-107); Estimated Creatinine Clearance > 125 ml/min; Glucose 85 mg/dl (70-99); Phosphorus 3.2 mg/dl (2.5-4.5); Potassium 3.6 mmol/L (3.5-5.1); Sodium 134 mmol/L (135-145); Total Bilirubin 15.8 mg/dl (0.2-1.3); eGFR > 60.00
--- NOTE | 2024-05-05 07:49 | W.PN.HOSP.TC ---
Today's Communication/Plan
-
diet downgraded to clears, attempting bowel rest
IVF LR 100 cc/h
cont pain control
compazine ativan prn nausea
cont monitoring LFTs
consider GI re-eval if patient doesn't improve.
Assessment / Plan
Assessment / Plan
Physical Exam
General: Obese, mild moderate distress d/t nausea abd pain
HEENT: Normocephalic Atraumatic PERRLA scleral icterus
Respiratory: Clear; No Wheezes
Cardiac: S1/S2 and Regular Rhythm
GI: Tenderness right upper Quadrant, right side abdomen, epigastric, bowel sounds present
Musculoskeletal: No Edema
Skin: Warm and Dry; No Rash, jaundice
Neuro: AO x 3
Psych: Calm
33F Anxiety/Depression ETOH here for Flu, Prolonged QT, and Acute Hepatitis 2/2 Flu vs Hep C vs ETOH vs combination of aforementioned
CXR
IMPRESSION:
No acute cardiopulmonary process.
Abdomen US:
IMPRESSION:
1. Hepatomegaly and Increased echogenicity in the liver, compatible with underlying hepatocellular disease, which most commonly relates to fatty infiltration of the liver.
2. No sonographic evidence for cholelithiasis or acute cholecystitis.
3. Splenomegaly.
CT abdomen/pelvis with contrast:
1. VERY SEVERE HEPATOMEGALY and SEVERE DIFFUSE HEPATIC STEATOSIS with an interval increase in size of the liver since 01/01/2023 suggesting ACUTE HEPATITIS with hepatic edema.
2. Band of increased attenuation in the lateral segment of the left lobe of the liver. Diagnostic possibilities are (1) focal fatty sparing or (2) subcapsular hemorrhage.
3. Portal hypertension with moderate splenomegaly.
4. Mild apolinar hepatis and portacaval lymphadenopathy.
5. Mild acute on chronic pancolitis.
6. Moderate diverticulosis in the descending colon.
7. 4.9 cm complex cyst in the left ovary which appears unchanged.
MR Abd W/o and W contrast:
-Severe hepatomegaly with hepatic steatosis and findings of acute hepatitis. There is an area of focal fatty sparing within the lateral left hepatic lobe which correlates with the previously seen abnormality on prior CT. There is no evidence of
hematoma within the liver.
-No evidence of choledocholithiasis or biliary obstruction.
-There is small volume pericholecystic free fluid which can be seen as a sequelae of liver disease.
-Splenomegaly, similar to prior.
Shortness of Breath
Influenza A
Nausea/Vomiting
-CXR without e/o superimposed pneumonia
-completed 5 days Tamiflu
-CTA chest appreciated no central PE
-prn Compazine nausea with improvement in QT prolongation as below, ativan IV also ordered prn nausea if compazine insufficient
-Low fat low lactose low residue diet downgraded to clear liquid for bowel rest (discussed considering NPO, patient however prefers at least clears for now)
-LR 100 cc/h
Prolonged Qtc
-avoid QT prolonging agents
-monitor and replete electrolytes as necessary
-since improved
Hypokalemia
Hypophosphatemia
monitor and replete as necessary
Elevated Liver Enzymes
Persistent Bilirubin Elevation, Hyperbilirubinemia
Alcohol Abuse
Alcohol Hepatitis
Hep C
Acute Hepatitis possibly 2/2 Flu
-Abd US, CT, MRI appreciated as above
-Mild PT prolongation, INR well within normal range
-Withdrawal symptoms resolved, ok to dc MSAS protocol with IV ativan PRN
-Pain control, Oxycodone 10 mg Q6hprn mod severe pain, prn IV dilaudid severe break through pain
-scheduled laxative for opiate induce constipation prophylaxis switched to prn due to diarrhea
-Thiamine Folate supplementation
-ETOH cessation counseled
-GI eval appreciated no indication for steroids at this time, outpatient follow up recommended
Mild Leukocytosis
Afebrile
COVID neg
-monitor
Reporting Diarrhea however stools noted formed as per nurse
-Cdiff norovirus neg
Persistent Intermittent Epistaxis since 05/01/24
ENT eval appreciated declined cauterization, saline Q1hWA, cont vaseline
Episode NSVT 8 beats 05/02/24
-asymptomatic
-cont monitoring on telemetry, no further episodes noted
DVT PPx Lovenox subQ switched to SCD's only d/t epistaxis as above
FULL CODE
I spent a total of 50 minutes with the patient or on the floor. More than 50% of this time involved counseling and coordination of care.
Anticipated Discharge: 24 - 48 hours
Subjective/Interval History
-
Date of Service: May 05, 2024
abd pain nausea vomiting diarrhea persists. Patient however wants to continue with diet, agreeable to downgrade to clear liquid diet for now, attempting bowel rest. Epistaxis since resolved
Objective Data
-
Labs:
Laboratory Results
05/05/24
06:17
WBC 12.3 H
Hgb 10.8 L
Hct 31.0 L
Plt Count 310
Sodium 134 L
Potassium 3.6
Chloride 95 L
Carbon Dioxide 29
BUN 2 L
Creatinine 0.4 L
Glucose 85
Calcium 8.0 L
Total Bilirubin 15.8 H
AST 276 H
ALT 31
Alkaline Phosphatase 154 H
Vital Signs:
Vital Signs
Temp Pulse Resp BP Pulse Ox
98.1 F 94 20 110/62 100
05/05/24 04:07 05/05/24 04:07 05/05/24 04:07 05/05/24 04:08 05/05/24 04:07
I&O
05/04/24 05/05/24 05/06/24
06:59 06:59 06:59
Intake Total 1280 / 1280 4140 / 4140
Balance 1280 / 1280 4140 / 4140
[2024-05-05] MEDS: FOLVITE 1 MG PO (09:11)
[2024-05-05] MEDS: VITAMIN B1 100 MG PO ×2 (09:11→20:41)
[2024-05-05] MEDS: PROTONIX 40 MG PO (09:11)
[2024-05-05] MEDS: OCEAN, SALINE MIST 1 SPRAYS NASAL ×2 (09:11→20:48)
[2024-05-05 09:29] LABS: COVID-19 Antigen Negative (Negative)
[2024-05-05] MEDS: COMPAZINE 5 MG IV (11:06)
[2024-05-05 13:13] LABS: Lipase 50 U/L (23-300)
[2024-05-05] MEDS: LR 1000 IV (13:50)
[2024-05-05] MEDS: OCEAN, SALINE MIST NASAL ×2 (14:15→17:47)
[2024-05-05] MEDS: TYLENOL 500 MG PO (15:39)
[2024-05-05] MEDS: ATIVAN 0.5 MG IV (20:41)
[2024-05-06] MEDS: LR 1000 IV ×2 (00:50→11:00)
[2024-05-06] MEDS: ROXICODONE 10 MG PO ×4 (00:53→20:19)
[2024-05-06 03:00] VITALS: BP 124/76
[2024-05-06] MEDS: DILAUDID 0.5 MG IV ×2 (04:06→10:33)
[2024-05-06] MEDS: FOLVITE 1 MG PO (07:22)
[2024-05-06] MEDS: VITAMIN B1 100 MG PO ×2 (07:22→20:19)
[2024-05-06] MEDS: PROTONIX 40 MG PO ×2 (07:22→20:20)
[2024-05-06] MEDS: OCEAN, SALINE MIST 1 SPRAYS NASAL ×3 (07:23→22:51)
[2024-05-06 07:30] VITALS: BP 125/84
[2024-05-06 08:10] LABS: Hematocrit 31.7 % (37.0-47.0); Hemoglobin 10.9 g/dL (12.0-16.0); Mean Corp Hgb Conc. 34.4 g/dL (33.0-37.0); Mean Corpuscular Hgb 37.1 pg (27.0-31.0); Mean Corpuscular Volume 107.8 fL (81.0-99.0); Mean Platelet Volume 10.2 fL (7.4-10.4); Platelet Count 285 10^3/uL (130-400); Red Blood Cell Count 2.94 10^6/uL (4.20-5.40); Red Cell Dist. Width 18.2 % (11.5-14.5); White Blood Cell Count 12.1 10^3/uL (4.8-10.8)
[2024-05-06] MEDS: COMPAZINE 5 MG IV (08:48)
[2024-05-06 09:07] LABS: ALT (SGPT) 29 U/L (0-35); AST (SGOT) 271 U/L (14-36); Albumin 2.6 g/dl (3.5-5.0); Alkaline Phosphatase 159 U/L (38-126); Blood Urea Nitrogen < 2 mg/dl (7-17); Calcium 8.3 mg/dl (8.4-10.2); Carbon Dioxide 26 mmol/L (22-30); Chloride 95 mmol/L (98-107); Estimated Creatinine Clearance > 125 ml/min; Glucose 85 mg/dl (70-99); Phosphorus 3.6 mg/dl (2.5-4.5); Potassium 3.8 mmol/L (3.5-5.1); Sodium 131 mmol/L (135-145); Total Bilirubin 17.4 mg/dl (0.2-1.3); eGFR > 60.00
[2024-05-06 11:22] VITALS: BP 133/73
--- NOTE | 2024-05-06 13:23 | W.PN.HOSP.TC ---
Today's Communication/Plan
-
GI to re evaluate for this pain.
She has had ultrasound, MRI, CAT scan
Assessment / Plan
Assessment / Plan
33F Anxiety/Depression ETOH here for Flu, Prolonged QT, and Acute Hepatitis 2/2 Flu vs Hep C vs ETOH vs combination of aforementioned
CXR- No acute cardiopulmonary process.
Abdomen US:
IMPRESSION:
1. Hepatomegaly and Increased echogenicity in the liver, compatible with underlying hepatocellular disease, which most commonly relates to fatty infiltration of the liver.
2. No sonographic evidence for cholelithiasis or acute cholecystitis.
3. Splenomegaly.
CT abdomen/pelvis with contrast:
1. VERY SEVERE HEPATOMEGALY and SEVERE DIFFUSE HEPATIC STEATOSIS with an interval increase in size of the liver since 01/01/2023 suggesting ACUTE HEPATITIS with hepatic edema.
2. Band of increased attenuation in the lateral segment of the left lobe of the liver. Diagnostic possibilities are (1) focal fatty sparing or (2) subcapsular hemorrhage.
3. Portal hypertension with moderate splenomegaly.
4. Mild apolinar hepatis and portacaval lymphadenopathy.
5. Mild acute on chronic pancolitis.
6. Moderate diverticulosis in the descending colon.
7. 4.9 cm complex cyst in the left ovary which appears unchanged.
MR Abd W/o and W contrast:
-Severe hepatomegaly with hepatic steatosis and findings of acute hepatitis. There is an area of focal fatty sparing within the lateral left hepatic lobe which correlates with the previously seen abnormality on prior CT. There is no evidence of
hematoma within the liver.
-No evidence of choledocholithiasis or biliary obstruction.
-There is small volume pericholecystic free fluid which can be seen as a sequelae of liver disease.
-Splenomegaly, similar to prior.
Patient continues to complain of abdominal pain and has been getting narcotics [id number]. Nursing reports that she asks today Mutch exactly when it is due
On examination awake and alert
Complains of pain mostly on the right side
Abdomen complains of pain when I palpate, more on the right side, vowel sounds present
No pedal edema
#Shortness of Breath
Influenza A
-Completed 5 days Tamiflu
-CTA chest appreciated no central PE
-CXR without e/o superimposed pneumonia
#Nausea/Vomiting
-Prn Compazine nausea with improvement in QT prolongation as below, Ativan IV also ordered prn nausea if Compazine insufficient
-Low fat low lactose low residue diet downgraded to clear liquid for bowel rest (discussed considering NPO, patient however prefers at least clears for now)
-Stop IV fluids
#Prolonged Qtc-Last EKG 483
-avoid QT prolonging agents
-monitor and replete electrolytes as necessary
-since improved
#Hypokalemia
Hypophosphatemia
monitor and replete as necessary
#Elevated Liver Enzymes
Persistent Bilirubin Elevation, Hyperbilirubinemia
Alcohol Abuse
Alcohol Hepatitis
Hep C
Acute Hepatitis possibly 2/2 Flu
-Abd US, CT, MRI appreciated as above
-Mild PT prolongation, INR well within normal range
-Withdrawal symptoms resolved, Off MSAS protocol
-Pain control, Oxycodone 10 mg Q6hprn mod severe pain, prn IV Dilaudid severe break through pain
-scheduled laxative for opiate induce constipation prophylaxis switched to prn due to diarrhea
-Thiamine Folate supplementation
-ETOH cessation counseled
-GI eval appreciated no indication for steroids at this time, outpatient follow up recommended
#Mild Leukocytosis
Afebrile
COVID neg
#Reporting Diarrhea however stools noted formed as per nurse
-Cdiff norovirus neg
#Persistent Intermittent Epistaxis since 05/01/24
ENT eval appreciated declined cauterization, saline Q1hWA, cont Vaseline
#Episode NSVT 8 beats 05/02/24
Asymptomatic
Cont monitoring on telemetry, no further episodes noted
Check ECHO
# Diverticulosis
# 4.9 cm complex cyst in the left ovary-outpatient [facility] follow-up
# Smoker-cessation counseling
#DVT PPx Lovenox subQ switched to SCD's only d/t epistaxis as above
#FULL CODE
D/W GI
D/W RN
Time spent over 50 min
Anticipated Discharge: Within 24 hours
Subjective/Interval History
-
Date of Service: May 06, 2024
Objective Data
-
Labs:
Laboratory Results
05/06/24
07:57
WBC 12.1 H
Hgb 10.9 L
Hct 31.7 L
Plt Count 285
Sodium 131 L
Potassium 3.8
Chloride 95 L
Carbon Dioxide 26
BUN < 2 L
Creatinine 0.4 L
Glucose 85
Calcium 8.3 L
Total Bilirubin 17.4 H
AST 271 H
ALT 29
Alkaline Phosphatase 159 H
Vital Signs:
Vital Signs
Temp Pulse Resp BP Pulse Ox
98.8 F 92 18 133/73 100
05/06/24 11:22 05/06/24 11:22 05/06/24 11:22 05/06/24 11:22 05/06/24 11:22
I&O
05/05/24 05/06/24 05/07/24
06:59 06:59 06:59
Intake Total 4140 / 4140 2580 / 2580
Balance 4140 / 4140 2580 / 2580
[2024-05-06 16:00] VITALS: BP 131/70
--- NOTE | 2024-05-06 17:09 | W.PN.GI.CBS2 ---
Today's Communication / Plan
-
plan
-Elevated LFTs, mainly total bilirubin and AST-rule out baseline alcoholic liver disease with recent flu causing worsening LFT's
Hepatitis B negative , HCV antibody reactive. Reviewing HCV RNA test 04/2023, undetectable with genotype 1b
Patient does continue to drink actively and has active flu
Noted ALT is in normal range but AST and Total bilirubin with alkaline phosphatase are elevated
MRI showing severe hepatomegaly and splenomegaly but no evidence of thrombus.
Check INR, CMP in a.m. to calculate discriminant function. Will need to check with ID if patient is a candidate for steroids with recent flu if discriminant function more than 32.
Will also check HCVRNA, CMV, HSV.
Monitor LFTs closely.
Needs to completely abstain from alcohol.
-Right upper quadrant abdominal pain of unclear etiology
Similar complaints in 2022. No evidence of gallbladder disease
Continue PPI
CT scan of the abdomen pelvis showing Mild acute on chronic pancolitis, patient does not have diarrhea and stool for C. difficile negative.
Will monitor symptoms .
Will follow
Assessment / Plan
-
Summary: 33yo female presents with 1 week cough, aches, chills, abd pain, n/v and Influenza A positive. She has chronic Hepatitis C, no prior rx. Also chronic alcohol, 1/2 bottle whiskey daily. US shows hepatosplenomegaly, normal GB. Plt 118,
INR 1.32. TBil 8.4
Impression:
Influenza A
RUQ pain worsened from baseline
Hepatitis C- not treated
EtOH hepatitis. DF = 25 04/28 .INR is stable.
Hepatosplenomegaly
U tox - positive for opioids/ benzo
MRI abdome 05/01
IMPRESSION:
Severe hepatomegaly with hepatic steatosis and findings of acute hepatitis. There is an area of focal fatty sparing within the lateral left hepatic lobe which correlates with the previously seen abnormality on prior CT. There is no evidence of
hematoma within the liver.
No evidence of choledocholithiasis or biliary obstruction.
There is small volume pericholecystic free fluid which can be seen as a sequelae of liver disease.
Splenomegaly, similar to prior.
CT abd / pel with IV 04/30
IMPRESSION:
1. VERY SEVERE HEPATOMEGALY and SEVERE DIFFUSE HEPATIC STEATOSIS with an interval increase in size of the liver since 01/01/2023 suggesting ACUTE HEPATITIS with hepatic edema.
2. Band of increased attenuation in the lateral segment of the left lobe of the liver. Diagnostic possibilities are (1) focal fatty sparing or (2) subcapsular hemorrhage.
3. Portal hypertension with moderate splenomegaly.
4. Mild apolinar hepatis and portacaval lymphadenopathy.
5. Mild acute on chronic pancolitis.
6. Moderate diverticulosis in the descending colon.
7. 4.9 cm complex cyst in the left ovary which appears unchanged.
plan
-Elevated LFTs, mainly total bilirubin and AST-rule out baseline alcoholic liver disease with recent flu causing worsening LFT's
Hepatitis B negative , HCV antibody reactive. Reviewing HCV RNA test 04/2023, undetectable with genotype 1b
Patient does continue to drink actively and has active flu
Noted ALT is in normal range but AST and Total bilirubin with alkaline phosphatase are elevated
MRI showing severe hepatomegaly and splenomegaly but no evidence of thrombus.
Check INR, CMP in a.m. to calculate discriminant function. Will need to check with ID if patient is a candidate for steroids with recent flu if discriminant function more than 32.
Will also check HCVRNA, CMV, HSV.
Monitor LFTs closely.
Needs to completely abstain from alcohol.
-Right upper quadrant abdominal pain of unclear etiology
Similar complaints in 2022. No evidence of gallbladder disease
Continue PPI
CT scan of the abdomen pelvis showing Mild acute on chronic pancolitis, patient does not have diarrhea and stool for C. difficile negative.
Will monitor symptoms .
Will follow
Subjective
Subjective
Date of Service: May 06, 2024
Patient currently complains of right upper quadrant abdominal pain which seems to be chronic. Has had similar complaint on admission in 2022
Objective
Data Reviewed
Laboratory Data:
Laboratory Results
05/06/24 07:57
05/06/24 07:57
Laboratory Results
PT 17.3 Sec (11.4-14.6) H 05/04/24 10:16
INR 1.39 05/04/24 10:16
APTT 50.8 Sec (23.4-35.0) H 05/04/24 10:16
Phosphorus 3.6 mg/dl (2.5-4.5) 05/06/24 07:57
Magnesium 2.0 mg/dl (1.6-2.3) 05/06/24 07:57
Total Bilirubin 17.4 mg/dl (0.2-1.3) H 05/06/24 07:57
AST 271 U/L (14-36) H 05/06/24 07:57
ALT 29 U/L (0-35) 05/06/24 07:57
Alkaline Phosphatase 159 U/L (38-126) H 05/06/24 07:57
Lipase 50 U/L (23-300) 05/05/24 06:17
Vital Signs and I&O:
Vital Signs
Temp Pulse Resp BP Pulse Ox
98.6 F 93 18 131/70 99
05/06/24 16:00 05/06/24 16:00 05/06/24 16:00 05/06/24 16:00 05/06/24 16:00
I&O
05/05/24 05/06/24 05/07/24
06:59 06:59 06:59
Intake Total 4140 / 4140 2580 / 2580
Balance 4140 / 4140 2580 / 2580
Physical Exam
Physical Exam
GI: Soft, Non Distended and Tender (Discomfort on palpation in the right upper quadrant)
[2024-05-06] MEDS: OCEAN, SALINE MIST NASAL (17:13)
[2024-05-06] MEDS: DILAUDID 0.25 MG IV (17:16)
[2024-05-06 19:25] VITALS: BP 116/63
[2024-05-06] MEDS: ATIVAN 0.5 MG IV (20:18)
[2024-05-06 23:30] VITALS: BP 127/72
[2024-05-07] MEDS: ROXICODONE 10 MG PO ×4 (01:42→20:08)
[2024-05-07] MEDS: ATIVAN 0.5 MG IV (02:18)
[2024-05-07 03:13] VITALS: BP 129/71
[2024-05-07 07:12] VITALS: BP 100/69
[2024-05-07 07:29] LABS: Hemoglobin 10.7 g/dL (12.0-16.0); Mean Corp Hgb Conc. 35.7 g/dL (33.0-37.0); Mean Corpuscular Hgb 37.5 pg (27.0-31.0); Mean Corpuscular Volume 105.3 fL (81.0-99.0); Mean Platelet Volume 10.8 fL (7.4-10.4); Platelet Count 263 10^3/uL (130-400); Red Blood Cell Count 2.85 10^6/uL (4.20-5.40); Red Cell Dist. Width 17.8 % (11.5-14.5); White Blood Cell Count 11.2 10^3/uL (4.8-10.8)
[2024-05-07 07:37] LABS: INR 1.52; PT 18.5 Sec (11.4-14.6)
[2024-05-07] MEDS: VITAMIN B1 100 MG PO ×2 (07:50→20:00)
[2024-05-07] MEDS: FOLVITE 1 MG PO (07:50)
[2024-05-07] MEDS: PROTONIX 40 MG PO ×2 (07:50→20:00)
[2024-05-07] MEDS: OCEAN, SALINE MIST 1 SPRAYS NASAL ×2 (07:51→12:53)
[2024-05-07 08:16] LABS: ALT (SGPT) 27 U/L (0-35); AST (SGOT) 248 U/L (14-36); Albumin 2.5 g/dl (3.5-5.0); Alkaline Phosphatase 154 U/L (38-126); Blood Urea Nitrogen < 2 mg/dl (7-17); Calcium 7.9 mg/dl (8.4-10.2); Carbon Dioxide 25 mmol/L (22-30); Chloride 97 mmol/L (98-107); Estimated Creatinine Clearance > 125 ml/min; Glucose 80 mg/dl (70-99); Phosphorus 3.4 mg/dl (2.5-4.5); Potassium 3.8 mmol/L (3.5-5.1); Sodium 133 mmol/L (135-145); Total Protein 5.8 g/dl (6.3-8.2); eGFR > 60.00
--- NOTE | 2024-05-07 10:03 | W.PN.GI.CBS2 ---
Addendum entered and electronically signed by Whitney Marj DO Ariana 05/07/24 13:37:
I saw and examined the patient.
The MEDIA EXECUTIVE or PA's note was reviewed and I agree with the note.
Comment:
Patient seen in follow-up today. Continues to have rise in tbili, alk phos and AST are overall stable. Mild increase in INR. No change in mental status.
Typical pattern of acute alcohol hepatitis, expect to see Tbili rise and eventually plateau, then subsequently improve. Unfortunately, there is no way to determine when that will happen/at what number it will occur. Agree with initiation of
prednisolone, need compliance with full course, if indicated after calculating early day 4 Lille score. That said, will need abstinence from alcohol as well, as ongoing insult to the liver negates any potential benefit of the steroids.
In regards to her ongoing right upper quadrant pain, she has had this complaint on multiple occasions with workup including CTs, ultrasounds and most recently an MRI of the abdomen. I personally reviewed the imaging of the MRI and her liver is
severely enlarged in addition to causing periportal edema. Suspect pain is 2/2 stretching of the liver capsule. She did go down for abdominal US today, results pending to evaluate for any appreciable ascites.
A/P:
-Continue to trend daily MELD labs
-Continue prednisolone, calculate early day 4 Lille score
-Trial of Vit. K for increasing INR
-continue to watch mental status closely, currently no evidence of encephalopathy
-Follow-up HCV RNA
-f/u additional infectious studies-- HSV, CMV
-Lidocaine patch for liver pain, could try neuropathic agents if no improvement, avoidance of NSAIDS/tylenol for now. Possibly will see some improvement with the steroids
Addendum entered and electronically signed by ANGELIC John 05/07/24 11:23:
Pt will need Lille score Day 2/4
Addendum entered and electronically signed by ANGELIC John 05/07/24 11:03:
I offered to call family -- pt declined
Original Note:
Today's Communication / Plan
-
Recalculated DF 43.3 with control on , MELD 27-- concern for worsening decompensated ETOH hepatitis
no fever -reviewed with Dr. Miroslava fay from infectious standpoint with flu/UTI on admission
will add Prednisolone-- pt state she will be compliant with medication and labs after discharge
stressed ETOH abstinence and avoid toxins
need good nutrition -- will restart diet
will recheck US abd for any ascites with some c/o abdominal pain to see if can proceed with paracentesis
daily weight as noted with developing LE swelling-- may need to add diuretics
Hepatitis B negative , HCV antibody reactive. Reviewing HCV RNA test 04/2023, undetectable with genotype 1b repeat pending
reviewed with patient limiting narcotics and liver disease
add vitamin K with noted epistaxis and rise in INR
cont PPI
cont thiamine and folate
CMV and HSV pending
will review with Dr. Colon for tertiary center eval with rise in MELD and DF
Assessment / Plan
-
Summary: 33yo female presents with 1 week cough, aches, chills, abd pain, n/v and Influenza A positive and Ecoli + 04/30. She has chronic Hepatitis C, no prior rx. Also chronic alcohol, 1/2 bottle whiskey daily. US shows hepatosplenomegaly,
normal GB. Initial DF 25 and steroid with
Impression:
EtOH hepatitis with decompensation and rise in DF during admission ( DF = 04/28 25, 05/07 43.3 with control on , MELD 27)
LE edema/ascites
Influenza A + 04/26
Ecoli UTI + 04/30
RUQ pain
04/30 CT with portal HTN/acute on chronic pancolitis
Hepatitis C- not treated RNA pending
epistaxis s/p ENT eval declined cauterization
-coagulopathy
Hepatosplenomegaly
U tox - positive for opioids/ benzo
ovarian cyst
MRI abdome 05/01
IMPRESSION:
Severe hepatomegaly with hepatic steatosis and findings of acute hepatitis. There is an area of focal fatty sparing within the lateral left hepatic lobe which correlates with the previously seen abnormality on prior CT. There is no evidence of
hematoma within the liver.
No evidence of choledocholithiasis or biliary obstruction.
There is small volume pericholecystic free fluid which can be seen as a sequelae of liver disease.
Splenomegaly, similar to prior.
CT abd / pel with IV 04/30
IMPRESSION:
1. VERY SEVERE HEPATOMEGALY and SEVERE DIFFUSE HEPATIC STEATOSIS with an interval increase in size of the liver since 01/01/2023 suggesting ACUTE HEPATITIS with hepatic edema.
2. Band of increased attenuation in the lateral segment of the left lobe of the liver. Diagnostic possibilities are (1) focal fatty sparing or (2) subcapsular hemorrhage.
3. Portal hypertension with moderate splenomegaly.
4. Mild apolinar hepatis and portacaval lymphadenopathy.
5. Mild acute on chronic pancolitis.
6. Moderate diverticulosis in the descending colon.
7. 4.9 cm complex cyst in the left ovary which appears unchanged.
plan
Recalculated DF 43.3 with control on 13, MELD 27-- concern for worsening decompensated ETOH hepatitis
no fever -reviewed with Dr. Miroslava fay from infectious standpoint with flu/UTI on admission
will add Prednisolone-- pt state she will be compliant with medication and labs after discharge
stressed ETOH abstinence and avoid toxins
need good nutrition -- will restart diet
will recheck US abd for any ascites with some c/o abdominal pain to see if can proceed with paracentesis
daily weight as noted with developing LE swelling-- may need to add diuretics
Hepatitis B negative , HCV antibody reactive. Reviewing HCV RNA test 04/2023, undetectable with genotype 1b repeat pending
reviewed with patient limiting narcotics and liver disease
add vitamin K with noted epistaxis and rise in INR
cont PPI
cont thiamine and folate
CMV and HSV pending
will review with Dr. Colon for tertiary center eval with rise in MELD and DF
Subjective
Subjective
Date of Service: May 07, 2024
05/05 brown loose stools on clear diet as had some nausea yesterday
Objective
Data Reviewed
Laboratory Data:
Laboratory Results
05/07/24 07:04
05/07/24 07:04
Laboratory Results
PT 18.5 Sec (11.4-14.6) H 05/07/24 07:04
INR 1.52 05/07/24 07:04
APTT 50.8 Sec (23.4-35.0) H 05/04/24 10:16
Phosphorus 3.4 mg/dl (2.5-4.5) 05/07/24 07:04
Magnesium 2.0 mg/dl (1.6-2.3) 05/07/24 07:04
Total Bilirubin 18.0 mg/dl (0.2-1.3) H 05/07/24 07:04
AST 248 U/L (14-36) H 05/07/24 07:04
ALT 27 U/L (0-35) 05/07/24 07:04
Alkaline Phosphatase 154 U/L (38-126) H 05/07/24 07:04
Lipase 50 U/L (23-300) 05/05/24 06:17
Vital Signs and I&O:
Vital Signs
Temp Pulse Resp BP Pulse Ox
98.2 F 104 17 100/69 95
05/07/24 07:12 05/07/24 07:12 05/07/24 07:12 05/07/24 07:12 05/07/24 07:12
I&O
05/06/24 05/07/24 05/08/24
06:59 06:59 06:59
Intake Total 2580 / 2580 800 / 800
Balance 2580 / 2580 800 / 800
Physical Exam
Physical Exam
HEENT: Other (marked jaundice)
Cardiology: Other (tachy)
Pulmonary: Other (decreased bases )
GI: Soft, Distended, Tender (diffuse ), Normal Bowel Sounds and Organomegaly (hepatosplenomegaly with large liver right side )
Extremities: Edema
Neuro: Non Focal
[2024-05-07] MEDS: MEPHYTON 10 MG PO (10:45)
[2024-05-07] MEDS: COMPAZINE 5 MG IV ×2 (10:47→19:58)
--- NOTE | 2024-05-07 11:46 | PTCARENOTE ---
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 Refused to allow PCT to replace leads. 'I don't want to put it back on' Attending MD notified.
[2024-05-07] MEDS: PRELONE 40 MG PO (12:00)
[2024-05-07 12:14] VITALS: BP 115/75
--- NOTE | 2024-05-07 13:01 | W.PN.HOSP.TC ---
Today's Communication/Plan
-
Steroids
Pt declined when I offered to talk to family. Says she talks to her mom and updates her
Assessment / Plan
Assessment / Plan
33F Anxiety/Depression ETOH here for Flu, Prolonged QT, and Acute Hepatitis 2/2 Flu vs Hep C vs ETOH vs combination of aforementioned
CXR- No acute cardiopulmonary process.
Abdomen US:
IMPRESSION:
1. Hepatomegaly and Increased echogenicity in the liver, compatible with underlying hepatocellular disease, which most commonly relates to fatty infiltration of the liver.
2. No sonographic evidence for cholelithiasis or acute cholecystitis.
3. Splenomegaly.
CT abdomen/pelvis with contrast:
1. VERY SEVERE HEPATOMEGALY and SEVERE DIFFUSE HEPATIC STEATOSIS with an interval increase in size of the liver since 01/01/2023 suggesting ACUTE HEPATITIS with hepatic edema.
2. Band of increased attenuation in the lateral segment of the left lobe of the liver. Diagnostic possibilities are (1) focal fatty sparing or (2) subcapsular hemorrhage.
3. Portal hypertension with moderate splenomegaly.
4. Mild apolinar hepatis and portacaval lymphadenopathy.
5. Mild acute on chronic pancolitis.
6. Moderate diverticulosis in the descending colon.
7. 4.9 cm complex cyst in the left ovary which appears unchanged.
MR Abd W/o and W contrast:
-Severe hepatomegaly with hepatic steatosis and findings of acute hepatitis. There is an area of focal fatty sparing within the lateral left hepatic lobe which correlates with the previously seen abnormality on prior CT. There is no evidence of
hematoma within the liver.
-No evidence of choledocholithiasis or biliary obstruction.
-There is small volume pericholecystic free fluid which can be seen as a sequelae of liver disease.
-Splenomegaly, similar to prior.
Patient continues to complain of abdominal pain and has been getting narcotics [id number]. Nursing reports that she asks today Much exactly when it is due
On examination awake and alert
Complains of pain mostly on the right side
Abdomen complains of pain when I palpate, more on the right side, vowel sounds present
No pedal edema
#Abdominal pain-not sure if hepatomegaly is the reason
-Check USS to see if she has ascites
# Shortness of Breath
Influenza A
-Completed 5 days Tamiflu
-CTA chest appreciated no central PE
-CXR without e/o superimposed pneumonia
# Nausea/Vomiting
-Prn Compazine nausea with improvement in QT prolongation as below,
-Low fat low lactose low residue diet downgraded to clear liquid for bowel rest (discussed considering NPO, patient however prefers at least clears for now)
-Stopped IV fluids
# Prolonged Qtc-Last EKG 483
-Avoid QT prolonging agents
-Monitor and replete electrolytes as necessary
-Since improved
-Repeat EKG
# Hypokalemia
-Hypophosphatemia
-Monitor and replete as necessary
# Elevated Liver Enzymes
Persistent Bilirubin Elevation, Hyperbilirubinemia
Alcohol Abuse
Alcohol Hepatitis
Acute Hepatitis possibly 2/2 Flu
Hepatitis C RNA ordered, HSV, CMV serologies ordered
-Abd US, CT, MRI appreciated as above
-Mild PT prolongation, INR 1.52
-Withdrawal symptoms resolved, Off MSAS protocol
-Pain control, Oxycodone 10 mg Q6hprn mod severe pain, prn IV Dilaudid severe break through pain
-scheduled laxative for opiate induce constipation prophylaxis switched to prn due to diarrhea
-Thiamine Folate supplementation
-ETOH cessation counseled
-Discriminant function higher. Starting steroids
# Mild Leukocytosis
-Afebrile
-COVID neg
# Reporting Diarrhea however stools noted formed as per nurse
-Cdiff norovirus neg
# Persistent Intermittent Epistaxis since 05/01/24
-ENT eval appreciated, declined cauterization, saline Q1hWA, cont Vaseline
# Episode NSVT 8 beats 05/02/24
-Asymptomatic
-Cont monitoring on telemetry, no further episodes noted
-Continue 05/06/2024 -ECHO normal LV size and function. EF 55 to 60%. Pulmonary artery pressure 30 mmHg
-Refusing tele-benefits and risks discussed
-Rpt EKG
# Diverticulosis
# 4.9 cm complex cyst in the left ovary-Outpatient [facility] follow-up
# Smoker-cessation counseling
# DVT PPx Lovenox SubQ switched to SCD's only d/t epistaxis as above
# FULL CODE
Refusing tele. Aware benefits and risks of not being on tele.
D/W GI at bed side
D/W RN
Time spent over 50 min
Anticipated Discharge: > 48 hours
Subjective/Interval History
-
Date of Service: May 07, 2024
Objective Data
-
Labs:
Laboratory Results
05/07/24
07:04
WBC 11.2 H
Hgb 10.7 L
Hct 30.0 L
Plt Count 263
PT 18.5 H
INR 1.52
Sodium 133 L
Potassium 3.8
Chloride 97 L
Carbon Dioxide 25
BUN < 2 L
Creatinine 0.4 L
Glucose 80
Calcium 7.9 L
Total Bilirubin 18.0 H
AST 248 H
ALT 27
Alkaline Phosphatase 154 H
Vital Signs:
Vital Signs
Temp Pulse Resp BP Pulse Ox
98.2 F 100 17 115/75 95
05/07/24 12:14 05/07/24 12:14 05/07/24 12:14 05/07/24 12:14 05/07/24 12:14
I&O
05/06/24 05/07/24 05/08/24
06:59 06:59 06:59
Intake Total 2580 / 2580 800 / 800
Balance 2579
[2024-05-07 15:10] VITALS: BP 116/66
[2024-05-07] MEDS: LIDOCAINE 4% PATCH 1 PATCH TOPICAL (15:34)
[2024-05-07] MEDS: DILAUDID 0.25 MG IV (15:35)
--- NOTE | 2024-05-07 16:47 | CM ---
Met with patient - discussed [facility] resources & patient declines. Pt has hepatitis and Flu.
PLAN: home, no needs - mom to transport
[2024-05-07] MEDS: OCEAN, SALINE MIST NASAL (17:22)
[2024-05-07] MEDS: FLUSH (NSS) 2 FLUSH IV (19:59)
[2024-05-07 23:30] VITALS: BP 126/77
[2024-05-08] VITALS (7 sets, daily range): BP systolic 101–118; BP diastolic 61–86
[2024-05-08] MEDS: OCEAN, SALINE MIST NASAL ×3 (00:22→18:18)
[2024-05-08] MEDS: ROXICODONE 10 MG PO ×4 (01:58→21:48)
[2024-05-08 07:31] LABS: INR 1.47; PT 18.1 Sec (11.4-14.6)
[2024-05-08] MEDS: FOLVITE 1 MG PO (07:41)
[2024-05-08] MEDS: VITAMIN B1 100 MG PO ×2 (07:42→21:43)
[2024-05-08] MEDS: PRELONE 40 MG PO (07:42)
[2024-05-08] MEDS: LIDOCAINE 4% PATCH 1 PATCH TOPICAL (07:42)
[2024-05-08] MEDS: PROTONIX 40 MG PO ×2 (07:42→21:43)
[2024-05-08 07:44] LABS: Hematocrit 31.9 % (37.0-47.0); Hemoglobin 10.7 g/dL (12.0-16.0); Mean Corp Hgb Conc. 33.5 g/dL (33.0-37.0); Mean Corpuscular Hgb 36.1 pg (27.0-31.0); Mean Corpuscular Volume 107.8 fL (81.0-99.0); Mean Platelet Volume 10.6 fL (7.4-10.4); Platelet Count 323 10^3/uL (130-400); Red Blood Cell Count 2.96 10^6/uL (4.20-5.40); Red Cell Dist. Width 17.6 % (11.5-14.5); White Blood Cell Count 13.8 10^3/uL (4.8-10.8)
[2024-05-08] MEDS: OCEAN, SALINE MIST 1 SPRAYS NASAL (07:50)
[2024-05-08 08:05] LABS: ALT (SGPT) 27 U/L (0-35); AST (SGOT) 203 U/L (14-36); Albumin 2.6 g/dl (3.5-5.0); Alkaline Phosphatase 155 U/L (38-126); Blood Urea Nitrogen 3 mg/dl (7-17); Calcium 8.2 mg/dl (8.4-10.2); Carbon Dioxide 30 mmol/L (22-30); Chloride 99 mmol/L (98-107); Estimated Creatinine Clearance > 125 ml/min; Glucose 92 mg/dl (70-99); Magnesium 2.2 mg/dl (1.6-2.3); Phosphorus 3.3 mg/dl (2.5-4.5); Potassium 3.4 mmol/L (3.5-5.1); Sodium 136 mmol/L (135-145); Total Bilirubin 18.8 mg/dl (0.2-1.3); Total Protein 6.3 g/dl (6.3-8.2); eGFR > 60.00
--- NOTE | 2024-05-08 09:32 | W.PN.GI.CBS2 ---
Addendum entered and electronically signed by Anthony Colon DO 05/08/24 14:36:
I saw and examined the patient.
The [employer]EDER's note was reviewed and I agree with the note.
Comment: Still with ongoing rising T Bili, now 18.8 as of today. Remaining LFTs including AST/ALT improving without any change in synthetic function and mentating appropriately. Still suspicious for EtOH hepatitis resulting in ongoing lag in T Bili
and without any prior evidence of obstruction on US. Started on Prednisolone on 05/07 and would continue this for now in hopes of improvement. Would calculate early Day-4 Lille score to assess for any improvement. However if patient is a steroid
non-responder (ie poor prognosis), I would then seriously consider referring her to a tertiary care center for potential OLT evaluation given her young age. Still with ongoing RUQ abdominal pain and extensive prior imaging previously unremarkable.
Repeat US 05/07 without any ascites and prior abdominal imaging with patent vasculature (ie no PVT). Suspect her previous abdominal likely secondary to stretching of the hepatic capsule given her significant hepatomegaly. Would continue ongoing
supportive care as detailed below.
Recommendations:
- Trend daily MELD labs- CMP, CBC and INR
- Await rest of HCV RNA and viral infectious studies (HSV, CMV)
- Continue oral Prednisolone 40 mg q daily
- Plan to re-calculate early day 4 Lille score (as no difference between 4 vs 7 days)
- If patient is a steroid non-responder, would recommend transfer to tertiary care center for OLT evaluation
- Monitor mental status, continues to mentate appropriately
- Avoidance of all NSAIDs and acetaminophen
- Rest of care as outlined below
GI will continue to follow while inpatient.
Original Note:
Today's Communication / Plan
-
DF 43.3 on 05/07 with control on 13, MELD 27-- concern for worsening decompensated ETOH hepatitis
some rise in bili and improved INR with vitamin K dosing will give additional dose today
DF 42.3 today (control of 13) cont to trend labs
cont Prednisolone started 05/07 pt state she will be compliant with medication and labs after discharge
will need Lille score 2/4 day 7
stressed ETOH abstinence and avoid toxins
need good nutrition --cont diet and supplement
US no ascites to drain
await daily weight as + LE edema on exam
Hepatitis B negative , HCV antibody reactive. Reviewing HCV RNA test 04/2023, undetectable with genotype 1b repeat HCV RNA pending
reviewed with patient limiting narcotics and liver disease -lidocaine patch for pain
cont PPI
cont thiamine and folate
CMV and HSV pending
tertiary center eval if not improving with steroid use
replete K per hospitalist
I again offered to call family pt declines
Assessment / Plan
-
Summary: 33yo female presents with 1 week cough, aches, chills, abd pain, n/v and Influenza A positive and Ecoli + 04/30. She has chronic Hepatitis C, no prior rx. Also chronic alcohol, 1/2 bottle whiskey daily. US shows hepatosplenomegaly,
normal GB. Initial DF 25 and steroid with
Impression:
EtOH hepatitis with decompensation and rise in DF during admission ( DF = 04/28 25, 05/07 43.3 with control on , MELD 27)
LE edema/no ascites per US 05/07
RUQ pain ? stretch of capsule with large liver
04/30 CT with portal HTN/acute on chronic pancolitis
Hepatitis C- not treated RNA pending
epistaxis s/p ENT eval declined cauterization
Influenza A + 04/26
Ecoli UTI + 04/30
NSVT during admission
-hypokalemia
-coagulopathy
Hepatosplenomegaly
U tox - positive for opioids/ benzo
ovarian cyst
MRI abdome 05/01
IMPRESSION:
Severe hepatomegaly with hepatic steatosis and findings of acute hepatitis. There is an area of focal fatty sparing within the lateral left hepatic lobe which correlates with the previously seen abnormality on prior CT. There is no evidence of
hematoma within the liver.
No evidence of choledocholithiasis or biliary obstruction.
There is small volume pericholecystic free fluid which can be seen as a sequelae of liver disease.
Splenomegaly, similar to prior.
CT abd / pel with IV 04/30
IMPRESSION:
1. VERY SEVERE HEPATOMEGALY and SEVERE DIFFUSE HEPATIC STEATOSIS with an interval increase in size of the liver since 01/01/2023 suggesting ACUTE HEPATITIS with hepatic edema.
2. Band of increased attenuation in the lateral segment of the left lobe of the liver. Diagnostic possibilities are (1) focal fatty sparing or (2) subcapsular hemorrhage.
3. Portal hypertension with moderate splenomegaly.
4. Mild apolinar hepatis and portacaval lymphadenopathy.
5. Mild acute on chronic pancolitis.
6. Moderate diverticulosis in the descending colon.
7. 4.9 cm complex cyst in the left ovary which appears unchanged.
05/07 US abdomen : There are no findings within the four quadrants of the abdomen to confirm ascites.
plan
DF 43.3 on 05/07 with control on 13, MELD 27-- concern for worsening decompensated ETOH hepatitis
some rise in bili and improved INR with vitamin K dosing will give additional dose today
DF 42.3 today (control of 13) cont to trend labs
cont Prednisolone started 05/07 pt state she will be compliant with medication and labs after discharge
will need Lille score 2/4 day 7
stressed ETOH abstinence and avoid toxins
need good nutrition --cont diet and supplement
US no ascites to drain
await daily weight as + LE edema on exam
Hepatitis B negative , HCV antibody reactive. Reviewing HCV RNA test 04/2023, undetectable with genotype 1b repeat HCV RNA pending
reviewed with patient limiting narcotics and liver disease -lidocaine patch for pain
cont PPI
cont thiamine and folate
CMV and HSV pending
tertiary center eval if not improving with steroid use
replete K per hospitalist
I again offered to call family pt declines
Subjective
Subjective
Date of Service: May 08, 2024
on regular diet with supplements + stool this am still with right sided pain but able to eat some food yesterday
Objective
Data Reviewed
Laboratory Data:
Laboratory Results
05/08/24 07:09
05/08/24 07:09
Laboratory Results
PT 18.1 Sec (11.4-14.6) H 05/08/24 07:09
INR 1.47 05/08/24 07:09
APTT 50.8 Sec (23.4-35.0) H 05/04/24 10:16
Phosphorus 3.3 mg/dl (2.5-4.5) 05/08/24 07:09
Magnesium 2.2 mg/dl (1.6-2.3) 05/08/24 07:09
Total Bilirubin 18.8 mg/dl (0.2-1.3) H* 05/08/24 07:09
AST 203 U/L (14-36) H 05/08/24 07:09
ALT 27 U/L (0-35) 05/08/24 07:09
Alkaline Phosphatase 155 U/L (38-126) H 05/08/24 07:09
Lipase 50 U/L (23-300) 05/05/24 06:17
Vital Signs and I&O:
Vital Signs
Temp Pulse Resp BP Pulse Ox
98.4 F 88 16 114/76 96
05/08/24 07:10 05/08/24 07:10 05/08/24 07:10 05/08/24 07:10 05/08/24 07:10
I&O
05/07/24 05/08/24 05/09/24
06:59 06:59 06:59
Intake Total 800 / 800 1560 / 1560
Balance 800 / 800 1560 / 1560
Physical Exam
Physical Exam
HEENT: Moist mucous membranes and Other (jaundice )
Cardiology: Normal Sinus Rhythm
Pulmonary: Clear
GI: Soft, Distended (with large abdomen), Tender (right sided ) and Organomegaly (enlarge liver right abdomen )
Extremities: Edema
Neuro: Non Focal
[2024-05-08] MEDS: KCL 40 MEQ PO (10:07)
[2024-05-08] MEDS: DILAUDID 0.25 MG IV ×2 (10:09→16:58)
[2024-05-08] MEDS: MEPHYTON 10 MG PO (10:15)
--- NOTE | 2024-05-08 15:15 | W.PN.HOSP.TC ---
Today's Communication/Plan
-
Follow response to steroids
Assessment / Plan
Assessment / Plan
33F Anxiety/Depression ETOH here for Flu, Prolonged QT, and Acute Hepatitis 2/2 Flu vs Hep C vs ETOH vs combination of aforementioned
CXR- No acute cardiopulmonary process.
Abdomen US:
IMPRESSION:
1. Hepatomegaly and Increased echogenicity in the liver, compatible with underlying hepatocellular disease, which most commonly relates to fatty infiltration of the liver.
2. No sonographic evidence for cholelithiasis or acute cholecystitis.
3. Splenomegaly.
CT abdomen/pelvis with contrast:
1. VERY SEVERE HEPATOMEGALY and SEVERE DIFFUSE HEPATIC STEATOSIS with an interval increase in size of the liver since 01/01/2023 suggesting ACUTE HEPATITIS with hepatic edema.
2. Band of increased attenuation in the lateral segment of the left lobe of the liver. Diagnostic possibilities are (1) focal fatty sparing or (2) subcapsular hemorrhage.
3. Portal hypertension with moderate splenomegaly.
4. Mild apolinar hepatis and portacaval lymphadenopathy.
5. Mild acute on chronic pancolitis.
6. Moderate diverticulosis in the descending colon.
7. 4.9 cm complex cyst in the left ovary which appears unchanged.
MR Abd W/o and W contrast:
-Severe hepatomegaly with hepatic steatosis and findings of acute hepatitis. There is an area of focal fatty sparing within the lateral left hepatic lobe which correlates with the previously seen abnormality on prior CT. There is no evidence of
hematoma within the liver.
-No evidence of choledocholithiasis or biliary obstruction.
-There is small volume pericholecystic free fluid which can be seen as a sequelae of liver disease.
-Splenomegaly, similar to prior.

On examination awake and alert
Complains of pain mostly on the right side
Abdomen complains of pain when I palpate, more on the right side, vowel sounds present
No pedal edema

# Acute alcoholic hepatitis
Abdominal pain-not sure if hepatomegaly is the reason
Elevated Liver Enzymes
Persistent Bilirubin Elevation, Hyperbilirubinemia
Alcohol Abuse
Alcohol Hepatitis
Acute Hepatitis possibly 2/2 Flu
Hepatitis C RNA ordered, HSV, CMV serologies ordered
-Abd US, CT, MRI appreciated as above
-Mild PT prolongation, INR 1.52
-Withdrawal symptoms resolved, Off MSAS protocol
-Pain control, Oxycodone 10 mg Q6hprn mod severe pain, prn IV Dilaudid severe break through pain
-scheduled laxative for opiate induce constipation prophylaxis switched to prn due to diarrhea
-Thiamine Folate supplementation
-ETOH cessation counseled
-Discriminant function higher. Started steroids 05/07/2024
-Follow bilirubin and calculate Estela score
# Shortness of Breath
Influenza A
-Completed 5 days Tamiflu
-CTA chest appreciated no central PE
-CXR without e/o superimposed pneumonia
# Nausea/Vomiting
-Prn Compazine nausea with improvement in QT prolongation as below,
-Low fat low lactose low residue diet downgraded to clear liquid for bowel rest (discussed considering NPO, patient however prefers at least clears for now)
-Stopped IV fluids
# Prolonged Qtc-Last EKG 483
-Avoid QT prolonging agents
-Monitor and replete electrolytes as necessary
-Since improved
-Repeat EKG QTc 462
# Hypokalemia
-Hypophosphatemia
-Monitor and replete as necessary
# Mild Leukocytosis
-Afebrile
-COVID neg
# Reporting Diarrhea however stools noted formed as per nurse
-Cdiff norovirus neg
# Persistent Intermittent Epistaxis since 05/01/24
-ENT eval appreciated, declined cauterization, saline Q1hWA, cont Vaseline
# Episode NSVT 8 beats 05/02/24
-Asymptomatic
-Cont monitoring on telemetry, no further episodes noted
-Continue 05/06/2024 -ECHO normal LV size and function. EF 55 to 60%. Pulmonary artery pressure 30 mmHg
-Refusing tele-benefits and risks discussed
-Rpt EKG QTc 462
# Diverticulosis
# 4.9 cm complex cyst in the left ovary-Outpatient [employer] follow-up
# Smoker-cessation counseling
# DVT PPx Lovenox SubQ to be restarted
# FULL CODE
D/W GI
D/W RN
Anticipated Discharge: > 48 hours
Subjective/Interval History
-
Date of Service: May 08, 2024
Objective Data
-
Labs:
Laboratory Results
05/08/24
07:09
WBC 13.8 H
Hgb 10.7 L
Hct 31.9 L
Plt Count 323 D
PT 18.1 H
INR 1.47
Sodium 136
Potassium 3.4 L
Chloride 99
Carbon Dioxide 30
BUN 3 L
Creatinine 0.5 L
Glucose 92
Calcium 8.2 L
Total Bilirubin 18.8 H*
AST 203 H
ALT 27
Alkaline Phosphatase 155 H
Vital Signs:
Vital Signs
Temp Pulse Resp BP Pulse Ox
98.0 F 97 17 115/86 97
05/08/24 11:01 05/08/24 11:01 05/08/24 11:01 05/08/24 11:01 05/08/24 11:01
I&O
05/07/24 05/08/24 05/09/24
06:59 06:59 06:59
Intake Total 800 / 800 1560 / 1560
Balance 800 / 800 1560 / 1560
[2024-05-08 16:31] LABS: CMV IgM Antibody <8.0 AU/mL (<=29.9)
--- NOTE | 2024-05-08 16:50 | FALL ---
Description of Fall:
Unwitnessed. Patient rang call matos at about 1615 hrs. Reported to staff that while showering at about 1600 hrs she began to feel dizzy and started to lower herself to the floor. Patient states that she began to sit but than fell with her RUQ
landing on the lip of the shower. She reports that her RUQ pain increased from about a 4 to a 7 and requests a dose of PRN dialaudid prior to time due. Patient denies striking her head or losing consciousness. No new bruises or abrasions noted on
examination. Patient states that she raised herself from the shower floor and finished showering. Dressed, returned to bed and then rang call matos. VS obtained and WNL. Attending MD notified via TT. New order not to allow unassisted showering.
Injuries Noted:
None
Action Taken:
VS obtained, physical assessment, provider notified, pain medication administered. Incident and fall note completed
Name of Provider Notified: MD Miroslava
[2024-05-08] MEDS: LOVENOX 40 MG SC (17:05)
[2024-05-08] MEDS: OCEAN, SALINE MIST 50 SPRAYS NASAL (21:46)
[2024-05-09 02:48] LABS: HSV 1/2 Combined Screen, IgG 0.65 IV
[2024-05-09 03:05] VITALS: BP 119/76
[2024-05-09] MEDS: ROXICODONE 10 MG PO ×2 (03:12→13:23)
[2024-05-09 06:31] VITALS: BMI 40.8
[2024-05-09 07:28] VITALS: BP 94/53
[2024-05-09 07:45] LABS: Hematocrit 32.4 % (37.0-47.0); Hemoglobin 10.8 g/dL (12.0-16.0); Mean Corp Hgb Conc. 33.3 g/dL (33.0-37.0); Mean Corpuscular Hgb 36.1 pg (27.0-31.0); Mean Corpuscular Volume 108.4 fL (81.0-99.0); Mean Platelet Volume 10.5 fL (7.4-10.4); Platelet Count 288 10^3/uL (130-400); Red Blood Cell Count 2.99 10^6/uL (4.20-5.40); Red Cell Dist. Width 17.8 % (11.5-14.5); White Blood Cell Count 12.1 10^3/uL (4.8-10.8)
[2024-05-09 07:54] LABS: INR 1.28; PT 16.5 Sec (11.4-14.6)
[2024-05-09 08:11] LABS: ALT (SGPT) 26 U/L (0-35); AST (SGOT) 173 U/L (14-36); Albumin 2.7 g/dl (3.5-5.0); Alkaline Phosphatase 143 U/L (38-126); Blood Urea Nitrogen 3 mg/dl (7-17); Calcium 7.9 mg/dl (8.4-10.2); Carbon Dioxide 30 mmol/L (22-30); Chloride 100 mmol/L (98-107); Estimated Creatinine Clearance > 125 ml/min; Glucose 81 mg/dl (70-99); Magnesium 2.2 mg/dl (1.6-2.3); Phosphorus 2.9 mg/dl (2.5-4.5); Potassium 3.4 mmol/L (3.5-5.1); Sodium 138 mmol/L (135-145); Total Bilirubin 17.9 mg/dl (0.2-1.3); Total Protein 6.2 g/dl (6.3-8.2); eGFR > 60.00
[2024-05-09] MEDS: FOLVITE 1 MG PO (08:38)
[2024-05-09] MEDS: LIDOCAINE 4% PATCH 1 PATCH TOPICAL (08:38)
[2024-05-09] MEDS: PROTONIX 40 MG PO ×2 (08:38→20:31)
[2024-05-09] MEDS: VITAMIN B1 100 MG PO ×2 (08:38→20:31)
[2024-05-09] MEDS: PRELONE 40 MG PO (08:38)
[2024-05-09] MEDS: DILAUDID 0.25 MG IV (08:43)
[2024-05-09] MEDS: OCEAN, SALINE MIST 50 SPRAYS NASAL ×2 (08:45→17:00)
[2024-05-09] MEDS: KCL 40 MEQ PO (08:46)
--- NOTE | 2024-05-09 09:25 | W.PN.GI.CBS2 ---
Addendum entered and electronically signed by Anthony Colon DO 05/09/24 12:07:
I saw and examined the patient.
The LAPIDARIST's note was reviewed and I agree with the note.
Comment: Continues to improve as demonstrated by her repeat LFTs including AST/ALT and down-trending T Bili (peaked 18.8 05/08) along with improving INR since starting oral vitamin K challenge and suspect component of malnutrition. Continues to
mentate appropriately. Etiology consistent with EtOH hepatitis resulting in ongoing lag in T Bili and without any prior evidence of obstruction on US further confounded by her prior influenza infection. HCV RNA still pending as well (prior HCV RNA
(-) 04/2023). Since being started on Prednisolone on 05/07, it appears she is improving and would continue this for now in hopes of ongoing improvement. Would calculate early Day-4 Lille score to assess if patient is truly a steroid-responder.
However, if patient is a steroid non-responder (ie poor prognosis), I would then seriously consider referring her to a tertiary care center for potential OLT evaluation given her young age. Still with ongoing, significant RUQ abdominal pain and
extensive prior imaging previously unremarkable. Repeat US 05/07 without any ascites and prior abdominal imaging with patent vasculature (ie no PVT). Suspect her previous abdominal likely secondary to stretching of the hepatic capsule given her
significant hepatomegaly. Would limit NSAIDs, acetaminophen and opioids as much as possible. Favor continuing ongoing supportive care as detailed below.
Recommendations:
- Trend daily MELD labs- CMP, CBC and INR
- Complete three-day of oral vitamin K challenge given improving INR and suspect some degree of malnutrition
- Await rest of HCV RNA and viral infectious studies (HSV, CMV)- still pending
- Continue oral Prednisolone 40 mg q daily
- Plan to re-calculate early day 4 Lille score (as no difference between 4 vs 7 days) tomorrow, 05/10
- If patient is a steroid non-responder (ie poor prognosis), would consider transfer to tertiary care center for OLT evaluation
- Would defer starting diuretics as no appreciable ascites on repeat US
- Continues to mentate appropriately, notify GI if any concern in mental status
- Avoidance of all NSAIDs and acetaminophen
- Continue MVI, folic acid, and thiamine. Ensure adequate Nutrition, supplement with Shakes/Ensures
- Ultimately, patient needs strict cessation of EtOH and would likely benefit from rehab as an outpatient. Discussed this with her extensively
- Close outpatient follow-up with GI as scheduled
- Rest of care as outlined below
GI will continue to follow.
Addendum entered and electronically signed by ANGELIC John 05/09/24 10:00:
Pt scheduled 05/[address] at [address] leonard
Original Note:
Today's Communication / Plan
-
DF 43.3 on 05/07 with control on repeat today , MELD 27-- concern for worsening decompensated ETOH hepatitis during admission
some improved labs bili 17.9, INR 1.28
DF 42.3 05/08 and 34 05/09 (control of ) cont to trend labs
cont Prednisolone started 05/07 pt state she will be compliant with medication and labs after discharge
will need Lille score will calculate tomorrow and 05/14 day 7
stressed ETOH abstinence and avoid toxins
need good nutrition --cont diet and supplement
US no ascites to drain
await daily weight as + LE edema on exam wt gain 3 kg since admission cont to follow for need for diuretics
Hepatitis B negative , HCV antibody reactive. Reviewing HCV RNA test 04/2023, undetectable with genotype 1b repeat HCV RNA pending
reviewed with patient limiting narcotics and liver disease -lidocaine patch for pain reviewed with Dr. [place] for stopping IV pain med and transition to PO
cont PPI can transition to daily on discharge and continue with steroid use
cont thiamine and folate
CMV pending, HSV neg
tertiary center eval if not continuing to improved
replete K per hospitalist
I again offered to call family pt declines
stressed need for ongoing counseling for ETOH issues on discharge
left message to office for setting up 3 week follow up
Assessment / Plan
-
Summary: 33yo female presents with 1 week cough, aches, chills, abd pain, n/v and Influenza A positive and Ecoli + 04/30. She has chronic Hepatitis C, no prior rx. Also chronic alcohol, 1/2 bottle whiskey daily. US shows hepatosplenomegaly,
normal GB. Initial DF 25 and steroid with
Impression:
EtOH hepatitis with decompensation and rise in DF during admission ( DF = 04/28 25, 05/07 43.3 with control on , MELD 27)
LE edema/no ascites per US 05/07
RUQ pain ? stretch of capsule with large liver
04/30 CT with portal HTN/acute on chronic pancolitis
Hepatitis C- not treated RNA pending
epistaxis s/p ENT eval declined cauterization
Influenza A + 04/26
Ecoli UTI + 04/30
NSVT during admission
-hypokalemia
-coagulopathy- improving
Hepatosplenomegaly
U tox - positive for opioids/ benzo
ovarian cyst
MRI abdomen 05/01
IMPRESSION:
Severe hepatomegaly with hepatic steatosis and findings of acute hepatitis. There is an area of focal fatty sparing within the lateral left hepatic lobe which correlates with the previously seen abnormality on prior CT. There is no evidence of
hematoma within the liver.
No evidence of choledocholithiasis or biliary obstruction.
There is small volume pericholecystic free fluid which can be seen as a sequelae of liver disease.
Splenomegaly, similar to prior.
CT abd / pel with IV 04/30
IMPRESSION:
1. VERY SEVERE HEPATOMEGALY and SEVERE DIFFUSE HEPATIC STEATOSIS with an interval increase in size of the liver since 01/01/2023 suggesting ACUTE HEPATITIS with hepatic edema.
2. Band of increased attenuation in the lateral segment of the left lobe of the liver. Diagnostic possibilities are (1) focal fatty sparing or (2) subcapsular hemorrhage.
3. Portal hypertension with moderate splenomegaly.
4. Mild apolinar hepatis and portacaval lymphadenopathy.
5. Mild acute on chronic pancolitis.
6. Moderate diverticulosis in the descending colon.
7. 4.9 cm complex cyst in the left ovary which appears unchanged.
05/07 US abdomen : There are no findings within the four quadrants of the abdomen to confirm ascites.
plan
DF 43.3 on 05/07 with control on 13 repeat today , MELD 27-- concern for worsening decompensated ETOH hepatitis during admission
some improved labs bili 17.9, INR 1.28
DF 42.3 05/08 and 34 05/09 (control of 13) cont to trend labs
cont Prednisolone started 05/07 pt state she will be compliant with medication and labs after discharge
will need Lille score will calculate tomorrow and / day 7
stressed ETOH abstinence and avoid toxins
need good nutrition --cont diet and supplement
US no ascites to drain
await daily weight as + LE edema on exam wt gain 3 kg since admission cont to follow for need for diuretics
Hepatitis B negative , HCV antibody reactive. Reviewing HCV RNA test 04/2023, undetectable with genotype 1b repeat HCV RNA pending
reviewed with patient limiting narcotics and liver disease -lidocaine patch for pain reviewed with Dr. [place] for stopping IV pain med and transition to PO
cont PPI can transition to daily on discharge and continue with steroid use
cont thiamine and folate
CMV pending, HSV neg
tertiary center eval if not continuing to improved
replete K per hospitalist
I again offered to call family pt declines
stressed need for ongoing counseling for ETOH issues on discharge
left message to office for setting up 3 week follow up
Subjective
Subjective
Date of Service: May 09, 2024
05/09 loose stool on regular diet with supplement still with abdominal pain, 05/09 loose stool
Objective
Data Reviewed
Laboratory Data:
Laboratory Results
05/09/24 06:58
05/09/24 06:58
Laboratory Results
PT 16.5 Sec (11.4-14.6) H 05/09/24 06:58
INR 1.28 05/09/24 06:58
APTT 50.8 Sec (23.4-35.0) H 05/04/24 10:16
Phosphorus 2.9 mg/dl (2.5-4.5) 05/09/24 06:58
Magnesium 2.2 mg/dl (1.6-2.3) 05/09/24 06:58
Total Bilirubin 17.9 mg/dl (0.2-1.3) H 05/09/24 06:58
AST 173 U/L (14-36) H 05/09/24 06:58
ALT 26 U/L (0-35) 05/09/24 06:58
Alkaline Phosphatase 143 U/L (38-126) H 05/09/24 06:58
Lipase 50 U/L (23-300) 05/05/24 06:17
Vital Signs and I&O:
Vital Signs
Temp Pulse Resp BP Pulse Ox
99.1 F 96 17 94/53 97
05/09/24 07:28 05/09/24 07:28 05/09/24 07:28 05/09/24 07:28 05/09/24 07:28
I&O
05/08/24 05/09/24 05/10/24
06:59 06:59 06:59
Intake Total 1560 / 1560 1320 / 1320
Balance 1560 / 1560 1320 / 1320
Physical Exam
Physical Exam
HEENT: Other (jaundice )
Cardiology: Normal Sinus Rhythm
Pulmonary: Clear
GI: Soft, Distended, Tender (right sided ) and Organomegaly
Extremities: Edema (trace)
Neuro: Non Focal
[2024-05-09 11:01] VITALS: BP 106/56
[2024-05-09] MEDS: OCEAN, SALINE MIST NASAL (11:44)
--- NOTE | 2024-05-09 15:15 | W.PN.HOSP.TC ---
Today's Communication/Plan
-
Dilaudid discontinued
Tramadol added
If improving possible discharge tomorrow
Assessment / Plan
Assessment / Plan
33F Anxiety/Depression ETOH here for Flu, Prolonged QT, and Acute Hepatitis 2/2 Flu vs Hep C vs ETOH vs combination of aforementioned
CXR- No acute cardiopulmonary process.
Abdomen US:
IMPRESSION:
1. Hepatomegaly and Increased echogenicity in the liver, compatible with underlying hepatocellular disease, which most commonly relates to fatty infiltration of the liver.
2. No sonographic evidence for cholelithiasis or acute cholecystitis.
3. Splenomegaly.
CT abdomen/pelvis with contrast:
1. VERY SEVERE HEPATOMEGALY and SEVERE DIFFUSE HEPATIC STEATOSIS with an interval increase in size of the liver since 01/01/2023 suggesting ACUTE HEPATITIS with hepatic edema.
2. Band of increased attenuation in the lateral segment of the left lobe of the liver. Diagnostic possibilities are (1) focal fatty sparing or (2) subcapsular hemorrhage.
3. Portal hypertension with moderate splenomegaly.
4. Mild apolinar hepatis and portacaval lymphadenopathy.
5. Mild acute on chronic pancolitis.
6. Moderate diverticulosis in the descending colon.
7. 4.9 cm complex cyst in the left ovary which appears unchanged.
MR Abd W/o and W contrast:
-Severe hepatomegaly with hepatic steatosis and findings of acute hepatitis. There is an area of focal fatty sparing within the lateral left hepatic lobe which correlates with the previously seen abnormality on prior CT. There is no evidence of
hematoma within the liver.
-No evidence of choledocholithiasis or biliary obstruction.
-There is small volume pericholecystic free fluid which can be seen as a sequelae of liver disease.
-Splenomegaly, similar to prior.

On examination awake and alert
Complains of pain mostly on the right side
Abdomen complains of pain when I palpate, more on the right side, vowel sounds present
No pedal edema

# Acute alcoholic hepatitis
Abdominal pain-not sure if hepatomegaly is the reason
Elevated Liver Enzymes
Persistent Bilirubin Elevation, Hyperbilirubinemia
Alcohol Abuse
Alcohol Hepatitis
Acute Hepatitis possibly 2/2 Flu
Hepatitis C RNA ordered, HSV neg, CMV serologies neg
-Abd US, CT, MRI appreciated as above
-INR better
-Withdrawal symptoms resolved, Off MSAS protocol
-Pain control, Oxycodone 10 mg Q6hprn mod severe pain, prn IV Dilaudid severe break through pain
-scheduled laxative for opiate induce constipation prophylaxis switched to prn due to diarrhea
-Thiamine Folate supplementation
-ETOH cessation counseled
-Discriminant function better. Started steroids 05/07/2024
-Estela score tomorrow
# Shortness of Breath
Influenza A
-Completed 5 days Tamiflu
-CTA chest appreciated no central PE
-CXR without e/o superimposed pneumonia
# Nausea/Vomiting
-Low fat low lactose
-Stopped IV fluids
# Prolonged Qtc-Last EKG 483
-Monitor and replete electrolytes as necessary
-Since improved
-Repeat EKG QTc 462
# Hypokalemia
-Hypophosphatemia
-Monitor and replete as necessary
# Mild Leukocytosis
-Afebrile
-COVID neg
# Reporting Diarrhea however stools noted formed as per nurse
-Cdiff norovirus neg
# Persistent Intermittent Epistaxis since 05/01/24
-ENT eval appreciated, declined cauterization, saline Q1hWA, cont Vaseline
# Episode NSVT 8 beats 05/02/24
-Asymptomatic
-Cont monitoring on telemetry, no further episodes noted
-Continue 05/06/2024 -ECHO normal LV size and function. EF 55 to 60%. Pulmonary artery pressure 30 mmHg
-Refusing tele-benefits and risks discussed
-Rpt EKG QTc 462
# Diverticulosis
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
# Smoker-cessation counseling
# DVT PPx Lovenox SubQ to be restarted
# FULL CODE
Nursing have been noticing that patient was in the shower yesterday then came out and said that she fell. No evidence of injury noted I did not find any injury on exam either today. She states that she has 10 out of 10 pain and asking for IV pain
medicines. Reasoning behind stopping Dilaudid discussed with the patient. Dilaudid has been discontinued.
I also made her aware that she cannot be discharged on narcotics.
D/W GI
D/W RN
Anticipated Discharge: Within 24 hours
Subjective/Interval History
-
Date of Service: May 09, 2024
Objective Data
-
Labs:
Laboratory Results
05/09/24
06:58
WBC 12.1 H
Hgb 10.8 L
Hct 32.4 L
Plt Count 288
PT 16.5 H
INR 1.28
Sodium 138
Potassium 3.4 L
Chloride 100
Carbon Dioxide 30
BUN 3 L
Creatinine 0.5 L
Glucose 81
Calcium 7.9 L
Total Bilirubin 17.9 H
AST 173 H
ALT 26
Alkaline Phosphatase 143 H
Vital Signs:
Vital Signs
Temp Pulse Resp BP Pulse Ox
98.1 F 95 16 106/56 95
05/09/24 11:01 05/09/24 11:01 05/09/24 11:01 05/09/24 11:01 05/09/24 11:01
I&O
05/08/24 05/09/24 05/10/24
06:59 06:59 06:59
Intake Total 1560 / 1560 1320 / 1320
Balance 1560 / 1560 1320 / 1320
[2024-05-09 15:32] VITALS: BP 94/59
[2024-05-09] MEDS: LOVENOX 40 MG SC (16:59)
[2024-05-09] MEDS: ULTRAM 50 MG PO (17:03)
[2024-05-09 19:45] VITALS: BP 108/62
[2024-05-09] MEDS: ROXICODONE 5 MG PO (20:35)
[2024-05-09] MEDS: OCEAN, SALINE MIST 1 SPRAYS NASAL (20:36)
[2024-05-09 21:52] LABS: HCV Quant by NAAT IU/mL Not Detected; HCV Quant by NAAT Interp Not Detected (Not Detected); HCV Quant by NAAT Log IU/mL Not Detected log IU/mL
[2024-05-09 23:58] VITALS: BP 116/58
[2024-05-10] MEDS: ULTRAM 50 MG PO (00:32)
[2024-05-10] MEDS: MELATONIN 5 MG PO (01:49)
[2024-05-10 03:12] VITALS: BP 121/70
[2024-05-10] MEDS: ROXICODONE 5 MG PO ×3 (05:55→15:39)
[2024-05-10 06:00] VITALS: BMI 40.7
[2024-05-10 06:21] LABS: Hematocrit 31.4 % (37.0-47.0); Hemoglobin 10.4 g/dL (12.0-16.0); Mean Corp Hgb Conc. 33.1 g/dL (33.0-37.0); Mean Corpuscular Hgb 36.5 pg (27.0-31.0); Mean Corpuscular Volume 110.2 fL (81.0-99.0); Mean Platelet Volume 10.7 fL (7.4-10.4); Platelet Count 285 10^3/uL (130-400); Red Blood Cell Count 2.85 10^6/uL (4.20-5.40); Red Cell Dist. Width 17.7 % (11.5-14.5); White Blood Cell Count 12.4 10^3/uL (4.8-10.8)
[2024-05-10 06:25] LABS: INR 1.33
[2024-05-10 06:59] LABS: ALT (SGPT) 27 U/L (0-35); AST (SGOT) 161 U/L (14-36); Albumin 2.6 g/dl (3.5-5.0); Alkaline Phosphatase 134 U/L (38-126); Blood Urea Nitrogen 4 mg/dl (7-17); Calcium 8.4 mg/dl (8.4-10.2); Carbon Dioxide 26 mmol/L (22-30); Chloride 101 mmol/L (98-107); Estimated Creatinine Clearance > 125 ml/min; Glucose 78 mg/dl (70-99); Magnesium 2.2 mg/dl (1.6-2.3); Phosphorus 3.8 mg/dl (2.5-4.5); Potassium 3.9 mmol/L (3.5-5.1); Sodium 137 mmol/L (135-145); Total Bilirubin 16.9 mg/dl (0.2-1.3); Total Protein 6.1 g/dl (6.3-8.2); eGFR > 60.00
[2024-05-10 07:00] VITALS: BP 119/56
[2024-05-10] MEDS: VITAMIN B1 100 MG PO (08:37)
[2024-05-10] MEDS: PROTONIX 40 MG PO (08:37)
[2024-05-10] MEDS: FOLVITE 1 MG PO (08:37)
[2024-05-10] MEDS: LIDOCAINE 4% PATCH 1 PATCH TOPICAL (08:38)
[2024-05-10] MEDS: OCEAN, SALINE MIST NASAL ×2 (08:39→12:40)
[2024-05-10] MEDS: PRELONE 40 MG PO (08:39)
--- NOTE | 2024-05-10 13:52 | W.PN.GI.CBS2 ---
Today's Communication / Plan
-
DF 43.3 on 05/07 with control on 13 repeat today , MELD 27-- concern for worsening decompensated ETOH hepatitis during admission
bili continues to improve
DF 42.3 05/08 and 34 05/09 35.3 05/10 (control of 13) cont to trend labs due OP 05/14
cont Prednisolone started 05/07 pt state she will be compliant with medication and labs after discharge will need enough til 05/21 follow up on discharge then decide on taper
Lille score today 0.016 with good prognosis will need repeat 05/14 day 7
stressed ETOH abstinence and avoid toxins
need good nutrition --cont diet and supplement
US no ascites to drain
some LE edema no ascites wt actually down 1 kg may be able to hold diuretics and review in GI office with close follow up for need to start
Hepatitis B negative , HCV antibody reactive. Reviewing HCV RNA test 04/2023, undetectable with genotype 1b repeat HCV RNA not detected likely prior exposure and cleared
reviewed with patient limiting narcotics and liver disease -lidocaine patch for pain reviewed with Dr. [place] for cont OP regiment
cont PPI can transition to daily on discharge and continue with steroid use
cont thiamine and folate
CMV neg , HSV neg
tertiary center eval if not continuing to improve
K corrected
multiple offers to call family pt declines
stressed need for ongoing counseling for ETOH issues on discharge
05/21 f/ u scheduled
I left labs slip and liver serology work up for patient to obtain next week
stable from GI for discharge all question answered-- Pt risk for readmission with decompensation stressed need for close follow up and lab monitoring
per [facility] liver tox . Oseltamivir has not been associated with clinically apparent liver injury.
pain management per hospitalist
reviewed with Dr. [place]
Assessment / Plan
-
Summary: 33yo female presents with 1 week cough, aches, chills, abd pain, n/v and Influenza A positive and Ecoli + 04/30. She has chronic Hepatitis C, no prior rx. Also chronic alcohol, 1/2 bottle whiskey daily. US shows hepatosplenomegaly,
normal GB. Initial DF 25 and steroid with
Impression:
EtOH hepatitis with decompensation and rise in DF during admission ( DF = 04/28 25, 05/07 43.3 with control on 13, MELD 27)
LE edema/no ascites per US 05/07
RUQ pain ? stretch of capsule with large liver
04/30 CT with portal HTN/acute on chronic pancolitis
Hepatitis C- not treated RNA pending
epistaxis s/p ENT eval declined cauterization
Influenza A + 04/26
Ecoli UTI + 04/30
NSVT during admission
-hypokalemia
-coagulopathy- improving
Hepatosplenomegaly
U tox - positive for opioids/ benzo
ovarian cyst
MRI abdomen 05/01
IMPRESSION:
Severe hepatomegaly with hepatic steatosis and findings of acute hepatitis. There is an area of focal fatty sparing within the lateral left hepatic lobe which correlates with the previously seen abnormality on prior CT. There is no evidence of
hematoma within the liver.
No evidence of choledocholithiasis or biliary obstruction.
There is small volume pericholecystic free fluid which can be seen as a sequelae of liver disease.
Splenomegaly, similar to prior.
CT abd / pel with IV 04/30
IMPRESSION:
1. VERY SEVERE HEPATOMEGALY and SEVERE DIFFUSE HEPATIC STEATOSIS with an interval increase in size of the liver since 01/01/2023 suggesting ACUTE HEPATITIS with hepatic edema.
2. Band of increased attenuation in the lateral segment of the left lobe of the liver. Diagnostic possibilities are (1) focal fatty sparing or (2) subcapsular hemorrhage.
3. Portal hypertension with moderate splenomegaly.
4. Mild apolinar hepatis and portacaval lymphadenopathy.
5. Mild acute on chronic pancolitis.
6. Moderate diverticulosis in the descending colon.
7. 4.9 cm complex cyst in the left ovary which appears unchanged.
05/07 US abdomen : There are no findings within the four quadrants of the abdomen to confirm ascites.
plan
DF 43.3 on 05/07 with control on 13 repeat today , MELD 27-- concern for worsening decompensated ETOH hepatitis during admission
bili continues to improve
DF 42.3 05/08 and 34 05/09 35.3 05/10 (control of 13) cont to trend labs due OP 05/14
cont Prednisolone started 05/07 pt state she will be compliant with medication and labs after discharge will need enough til 05/21 follow up on discharge then decide on taper
Lille score today 0.016 with good prognosis will need repeat 05/14 day 7
stressed ETOH abstinence and avoid toxins
need good nutrition --cont diet and supplement
US no ascites to drain
some LE edema no ascites wt actually down 1 kg may be able to hold diuretics and review in GI office with close follow up for need to start
Hepatitis B negative , HCV antibody reactive. Reviewing HCV RNA test 04/2023, undetectable with genotype 1b repeat HCV RNA not detected likely prior exposure and cleared
reviewed with patient limiting narcotics and liver disease -lidocaine patch for pain reviewed with Dr. [place] for cont OP regiment
cont PPI can transition to daily on discharge and continue with steroid use
cont thiamine and folate
CMV neg , HSV neg
tertiary center eval if not continuing to improve
K corrected
multiple offers to call family pt declines
stressed need for ongoing counseling for ETOH issues on discharge
05/21 f/ u scheduled
I left labs slip and liver serology work up for patient to obtain next week
stable from GI for discharge all question answered-- Pt risk for readmission with decompensation stressed need for close follow up and lab monitoring
per [facility] liver tox . Oseltamivir has not been associated with clinically apparent liver injury.
Subjective
Subjective
Date of Service: May 10, 2024
05/08 loose stool on regular diet with supplement still with abdominal pain
Objective
Data Reviewed
Laboratory Data:
Laboratory Results
05/10/24 05:37
05/10/24 05:37
Laboratory Results
PT 17.0 Sec (11.4-14.6) H 05/10/24 05:37
INR 1.33 05/10/24 05:37
APTT 50.8 Sec (23.4-35.0) H 05/04/24 10:16
Phosphorus 3.8 mg/dl (2.5-4.5) 05/10/24 05:37
Magnesium 2.2 mg/dl (1.6-2.3) 05/10/24 05:37
Total Bilirubin 16.9 mg/dl (0.2-1.3) H 05/10/24 05:37
AST 161 U/L (14-36) H 05/10/24 05:37
ALT 27 U/L (0-35) 05/10/24 05:37
Alkaline Phosphatase 134 U/L (38-126) H 05/10/24 05:37
Lipase 50 U/L (23-300) 05/05/24 06:17
Vital Signs and I&O:
Vital Signs
Temp Pulse Resp BP Pulse Ox
98.1 F 75 16 119/56 96
05/10/24 07:00 05/10/24 07:00 05/10/24 07:00 05/10/24 07:00 05/10/24 07:00
I&O
05/09/24 05/10/24 05/11/24
06:59 06:59 06:59
Intake Total 1320 / 1320 960 / 960
Balance 1320 / 1320 960 / 960
Physical Exam
Physical Exam
HEENT: Other (jaundice )
Cardiology: Normal Sinus Rhythm
Pulmonary: Clear
GI: Soft, Distended, Tender (Right sided stable for last few day seen in change ) and Organomegaly
Extremities: No Edema
Neuro: Non Focal
--- NOTE | 2024-05-10 15:11 | CM ---
Chart reviewed and previous bilingual patient support caseworker offered patient [facility] services at discharge but patient declined, home at discharge.
Plan; Home at discharge.
--- NOTE | 2024-05-10 15:32 | W.PN.HOSP.TC ---
Addendum entered and electronically signed by Adrian Colorado MD 05/10/24 15:40:
HCV not detected.
Original Note:
Today's Communication/Plan
-
Discharge
Assessment / Plan
Assessment / Plan
33F Anxiety/Depression ETOH here for Flu, Prolonged QT, and Acute Hepatitis 2/2 Flu vs Hep C vs ETOH vs combination of aforementioned
CXR- No acute cardiopulmonary process.
Abdomen US:
IMPRESSION:
1. Hepatomegaly and Increased echogenicity in the liver, compatible with underlying hepatocellular disease, which most commonly relates to fatty infiltration of the liver.
2. No sonographic evidence for cholelithiasis or acute cholecystitis.
3. Splenomegaly.
CT abdomen/pelvis with contrast:
1. VERY SEVERE HEPATOMEGALY and SEVERE DIFFUSE HEPATIC STEATOSIS with an interval increase in size of the liver since 01/01/2023 suggesting ACUTE HEPATITIS with hepatic edema.
2. Band of increased attenuation in the lateral segment of the left lobe of the liver. Diagnostic possibilities are (1) focal fatty sparing or (2) subcapsular hemorrhage.
3. Portal hypertension with moderate splenomegaly.
4. Mild apolinar hepatis and portacaval lymphadenopathy.
5. Mild acute on chronic pancolitis.
6. Moderate diverticulosis in the descending colon.
7. 4.9 cm complex cyst in the left ovary which appears unchanged.
MR Abd W/o and W contrast:
-Severe hepatomegaly with hepatic steatosis and findings of acute hepatitis. There is an area of focal fatty sparing within the lateral left hepatic lobe which correlates with the previously seen abnormality on prior CT. There is no evidence of
hematoma within the liver.
-No evidence of choledocholithiasis or biliary obstruction.
-There is small volume pericholecystic free fluid which can be seen as a sequelae of liver disease.
-Splenomegaly, similar to prior.

On examination awake and alert
Complains of pain mostly on the right side
Abdomen complains of pain when I palpate, more on the right side, vowel sounds present
mild pedal edema

# Acute alcoholic hepatitis
Abdominal pain-not sure if hepatomegaly is the reason
Elevated Liver Enzymes
Persistent Bilirubin Elevation, Hyperbilirubinemia
Alcohol Abuse
Alcohol Hepatitis
Acute Hepatitis possibly 2/2 Flu
Hepatitis C RNA ordered, HSV neg, CMV serologies neg
-Abd US, CT, MRI appreciated as above
-INR better
-Withdrawal symptoms resolved, Off MSAS protocol
-Pain control, Oxycodone 5 mg Q6hprn mod severe pain,stopped, Ultram for discharge
-Thiamine Folate supplementation
-ETOH cessation counseled
-Discriminant function better. Started steroids 05/07/2024
-Estela score noted
# Shortness of Breath
Influenza A
-Completed 5 days Tamiflu
-CTA chest appreciated no central PE
-CXR without e/o superimposed pneumonia
# Nausea/Vomiting
-Low fat low lactose
-Stopped IV fluids
# Prolonged Qtc-Last EKG 483
-Monitor and replete electrolytes as necessary
-Since improved
-Repeat EKG QTc 462
# Hypokalemia
-Hypophosphatemia
-Monitor and replete as necessary
# Mild Leukocytosis
-Afebrile
-COVID neg
# Reporting Diarrhea however stools noted formed as per nurse
-Cdiff norovirus neg
# Persistent Intermittent Epistaxis since 05/01/24
-ENT eval appreciated, declined cauterization, saline Q1hWA, cont Vaseline
# Episode NSVT 8 beats 05/02/24
-Continue 05/06/2024 -ECHO normal LV size and function. EF 55 to 60%. Pulmonary artery pressure 30 mmHg
# Diverticulosis
# 4.9 cm complex cyst in the left ovary-Outpatient [facility] follow-up
# Smoker-cessation counseling
# DVT PPx Lovenox SubQ to be restarted
# FULL CODE
D/W GI , recommended discharge
D/W RN
Detail discussed with the patient that she needs to stop alcohol completely. Also discussed that she has an appointment with Dr. Valentin on the and diuretics will be discussed at that time. Advised to have healthy diet and become more active
More than 30 minutes spent in discharge including
Final examination of the patient
Summarizing hospital stay
Instructions for continuing care to all relevant caregivers
Preparation of discharge records, prescriptions, and referral forms
Total time spent (in minutes): 37 min
Anticipated Discharge: Today
Subjective/Interval History
-
Date of Service: May 10, 2024
Objective Data
-
Labs:
Laboratory Results
05/10/24
05:37
WBC 12.4 H
Hgb 10.4 L
Hct 31.4 L
Plt Count 285
PT 17.0 H
INR 1.33
Sodium 137
Potassium 3.9
Chloride 101
Carbon Dioxide 26
BUN 4 L
Creatinine 0.5 L
Glucose 78
Calcium 8.4
Total Bilirubin 16.9 H
AST 161 H
ALT 27
Alkaline Phosphatase 134 H
Vital Signs:
Vital Signs
Temp Pulse Resp BP Pulse Ox
98.1 F 75 16 119/56 96
05/10/24 07:00 05/10/24 07:00 05/10/24 07:00 05/10/24 07:00 05/10/24 07:00
I&O
05/09/24 05/10/24 05/11/24
06:59 06:59 06:59
Intake Total 1320 / 1320 960 / 960
Balance 1320 / 1320 960 / 960
--- NOTE | 2024-05-10 15:39 | W.DS.TRANS ---
Addendum entered and electronically signed by Adrian Colorado MD 05/10/24 18:26:
Dictation- [id number]
Original Note:
DC Summary - [employer]
-
Discharge Instructions:
Discharge Diagnosis/Procedures Alcohol hepatitis
Influenza A
Severe hepatomegaly
Fatty liver
Splenomegaly
Diverticulosis
4.9 cm cyst in the left ovary
Low potassium
Epistaxis-nosebleed
Diet Other diet
Additional Diets Avoid all alcohol and medication/drugs toxic to
liver, good nutrition with supplement or protein
bar in evening
Driving Restrictions As prior to admission
Blood Work obtain blood work as given on scripts for
monday CBC, comp, INR and liver serology work
up call GI to review and review liver tests with
Dr. leonard on 05/21
Instructions:
Stand-Alone Forms:
Changes to Home Medications: Yes
Discharge Medications:
DC Medications w/original date entered [facility]
folic acid 1 mg tablet 1 mg PO DAILY Supplement #0 tabs 05/10/24
lidocaine 4 % topical patch 1 patch topical DAILY Pain #0 ea 05/10/24
pantoprazole 40 mg tablet,delayed release 40 mg PO BID Gastrointestinal issue #60 tabs 05/10/24
polyethylene glycol 3350 17 gram oral powder packet 17 g PO DAILYPRN PRN constipation #0 ea 05/10/24
prednisolone sodium phosphate 15 mg/5 mL (3 mg/mL) oral solution 40 mg (13.3333 mL) PO DAILY Liver issues #237 mL 05/10/24
thiamine mononitrate (vit B1) 100 mg tablet 100 mg PO BID Supplement #0 tabs 05/10/24
tramadol 50 mg tablet 50 mg PO Q6HPRN PRN moderate pain #30 tabs 05/10/24
Home Medication Changes
all above new
Pending Results: No
[2024-05-10 15:42] VITALS: BP 137/58
== END 2024-05-10 16:16 | disposition home or self-care (01) | DRG 433 ==
LOC: 3 WEST ACU 17:16
PROVIDERS: Internal Medicine; Internal Medicine Gastroenterology; Nurse Practitioner Adult Health; ADMITTING PHYSICIAN Student in an Organized Health Care Education/Training Program; ATTENDING PHYSICIAN Hospitalist; CONSULT PHYSICIAN Otolaryngology; EMERGENCY PHYSICIAN Student in an Organized Health Care Education/Training Program
DX: K70.10 Alcoholic hepatitis without ascites (principal); D68.4 Acquired coagulation factor deficiency; Z68.41 Body mass index [BMI] 40.0-44.9, adult; I47.20 Ventricular tachycardia, unspecified; K76.6 Portal hypertension; F10.130 Alcohol abuse with withdrawal, uncomplicated; J10.1 Influenza due to other identified influenza virus with other respiratory manifestations; M10.9 Gout, unspecified; E87.6 Hypokalemia; E66.9 Obesity, unspecified; R04.0 Epistaxis; F41.9 Anxiety disorder, unspecified; F32.A Depression, unspecified; E83.39 Other disorders of phosphorus metabolism; R59.1 Generalized enlarged lymph nodes; K52.9 Noninfective gastroenteritis and colitis, unspecified; N83.202 Unspecified ovarian cyst, left side; K57.30 Diverticulosis of large intestine without perforation or abscess without bleeding; E80.6 Other disorders of bilirubin metabolism; B18.2 Chronic viral hepatitis C; D72.829 Elevated white blood cell count, unspecified; K76.0 Fatty (change of) liver, not elsewhere classified; F17.210 Nicotine dependence, cigarettes, uncomplicated; R16.2 Hepatomegaly with splenomegaly, not elsewhere classified; Z11.52 Encounter for screening for COVID-19
CPT/HCPCS: 71046; 71275; 74177; 74183; 76700; 76705; 80053; 80306; 80307; 81003; 81015; 82248; 82607; 82728; 82746; 83540; 83550; 83690; 83735; 84100; 84439; 84443; 84703; 85025; 85027; 85610; 85730; 86645; 86694; 87077; 87086; 87186; 87324; 87449; 87502; 87522; 87798; 87811; 93005; 93306; 96361; 96374; 96375; 97162; 99285; A9581; Q9967

== ENCOUNTER → 2024-06-06 09:55 | Outpatient (REF) | payer OTHER, SELFPAY | LOC: RAD 09:55 | PROVIDERS: ATTENDING PHYSICIAN Specialist | DX: R60.0 Localized edema (principal) | CPT/HCPCS: 93970 ==

== ENCOUNTER 2024-07-02 16:20 | Emergency (ER) | payer OTHER, SELFPAY ==
[2024-07-02 16:21] VITALS: BMI 35.2
[2024-07-02 16:22] VITALS: BP 136/103
[2024-07-02] MEDS: ZOFRAN ODT (ORALLY DISINTEGRATING) 4 MG PO (16:25)
[2024-07-02 16:53] LABS: HCG, Serum Qualitative Screen Negative
[2024-07-02 16:57] LABS: % Basophils 0.6 % (0-2); % Eosinophils 1.3 % (0-6); % Immature Granulocytes 0.1 % (0-0.5); % Lymphocytes 24.5 % (20.5-51.1); % Monocytes 6.5 % (1.7-9.3); Absolute Basophils 0.1 10^3/uL (0-0.2); Absolute Eosinophils 0.1 10^3/uL (0-0.7); Absolute Lymphocytes 1.9 10^3/uL (1.2-3.4); Absolute Monocytes 0.5 10^3/uL (0.1-0.6); Absolute Neutrophils 5.2 10^3/uL (1.4-6.5); Hematocrit 41.2 % (37.0-47.0); Hemoglobin 14.1 g/dL (12.0-16.0); Mean Corp Hgb Conc. 34.2 g/dL (33.0-37.0); Mean Corpuscular Hgb 33.9 pg (27.0-31.0); Mean Platelet Volume 11.3 fL (7.4-10.4); Nucleated Red Blood Cells % 0 %; Platelet Count 212 10^3/uL (130-400); Red Blood Cell Count 4.16 10^6/uL (4.20-5.40); Red Cell Dist. Width 11.9 % (11.5-14.5); White Blood Cell Count 7.7 10^3/uL (4.8-10.8)
[2024-07-02 16:58] LABS: Urine Albumin 3+ (Neg - Trace); Urine Bilirubin 3+ (Negative); Urine Character Cloudy (Clear); Urine Color Yellow; Urine Glucose Negative (Negative); Urine Ketone 3+ (Negative); Urine Leukocyte 1+ (Negative); Urine Nitrite Positive (Negative); Urine Occult Blood 1+ (Negative); Urine Specific Gravity 1.025 (<1.030); Urine Urobilinogen 4+ (Neg - 1+)
[2024-07-02 17:07] LABS: Urine Squamous Cell >30 /LPF (Few)
[2024-07-02 17:09] LABS: Urine Bacteria Many (Negative)
[2024-07-02 17:11] LABS: ALT (SGPT) 31 U/L (0-35); AST (SGOT) 98 U/L (14-36); Albumin 4.4 g/dl (3.5-5.0); Alkaline Phosphatase 95 U/L (38-126); Blood Urea Nitrogen < 2 mg/dl (7-17); Calcium 9.8 mg/dl (8.4-10.2); Carbon Dioxide 19 mmol/L (22-30); Chloride 102 mmol/L (98-107); Glucose 91 mg/dl (70-99); Lipase 58 U/L (23-300); Potassium 3.7 mmol/L (3.5-5.1); Sodium 139 mmol/L (135-145); Total Bilirubin 5.5 mg/dl (0.2-1.3); Total Protein 8.3 g/dl (6.3-8.2); eGFR > 60.00
--- NOTE | 2024-07-02 18:45 | ED.GENMED ---
History of Present Illness
General
Chief Complaint: Abdominal Symptoms
Source: patient
Exam Limitations: none
Time Seen by Provider: 07/02/24 18:26
Nursing documentation reviewed up to this point in time: agreed with
History of Present Illness
History of Present Illness:
This is a 33-year-old female with a past medical history of hepatitis C, prior alcohol use disorder, depression, who presents emergency department today with persistent nausea and vomiting for the past 3 weeks. She reports that it is gotten worse
over the past few weeks and she has had nausea vomiting every day. Patient states that she used to be a heavy drinker but states that she is currently sober and her last drink was 3 months ago. She also has intermittent associated right upper
quadrant pain with this. Contrary to triage note, she denies any diarrhea. Patient reports that she had similar symptoms a few months ago and was admitted for acute hepatitis. Patient denies any sick contacts. Patient denies any chest pain or
shortness of breath. Patient denies any burning with urination or pelvic pain. Patient denies any flank pain. She denies any prior abdominal surgeries. She denies any rectal bleeding or bloody stools. She follows with Dr. Valentin with [facility].
Past History
Past History
ED Past Medical History: Psychiatric and Other (Cellulitis, Gout,)
ED Past Surgical History: and Other
Social History
Tobacco: Smoker
Alcohol: None
Personal: Single
Living: with family
Employment: Student
Review of Systems
Review of Systems
All Other Systems: ROS reviewed and negative except as documented in HPI and ROS
Phy Exam
Physical Exam
Physical Exam:
General: Patient appears uncomfortable, actively vomiting
Skin: Warm and dry, no rashes or lesions
Head: Normocephalic, atraumatic
Eyes: Sclera icterus noted. EOMs intact.
Cardiac: Patient tachycardic otherwise regular rhythm, no murmurs
Pulm: Normal respiratory effort, no wheezes, rales, rhonchi
Abdomen: Right upper quadrant tenderness palpation with guarding
Neuro: CN II-XII intact, no focal neurologic deficits.
Psychiatric: Appropriate mood and affect.
Course
Orders/Labs/Results
Orders:
Orders
07/02/24 16:24
Ondansetron Orally Disint [Zofran Odt (Orally Disintegrating)] 4 mg .ROUTE .[facility]
07/02/24 16:25
Ondansetron Orally Disint [Zofran Odt (Orally Disintegrating)] 4 mg PO NOW STA
Test Result ONCE
07/02/24 16:33
Complete Blood Count/With Diff Urgent
Comprehensive Metabolic Panel Urgent
HCG, Serum Qualitative Screen Urgent
Comment: Notify provider if positive test present
Lipase Urgent
Urinalysis Reflex To Culture Urgent
Date Specimen was Collected: 07/02/24
Time Specimen was Collected: 16:25
Urine Microscopic Reflex Cult Urgent
Urine Culture Urgent
MAYRA Source: U
Specimen Description:
Date Specimen was Collected: 07/02/24
Time Specimen was Collected: 16:25
07/02/24 18:41
0.9% Sodium Chloride 1000 ml [Nss] 1,000 ml IV BOLUS
Diphenhydramine [Benadryl] 12.5 mg IV NOW STA
Famotidine [Pepcid] 20 mg IV NOW STA
Metoclopramide [Reglan] 10 mg IV NOW STA
US Abdomen Complete/Upper Urgent
Comment:
Reason For Exam: right upper quadrant pain
07/02/24 19:43
Hepatitis A IgM Antibody Urgent
Hepatitis B Core Ab, IgM Urgent
Hepatitis B Surface Antibody Urgent
Hepatitis B Surface Antigen Urgent
Hepatitis C Antibody Urgent
07/02/24 19:46
Cardiac Monitoring- Treatment ONCE
Vital Signs- Treatment ONCE
Frequency: Once
Abnormal Lab Results
07/02/24
16:33
RBC 4.16 L 10^6/uL
(4.20-5.40)
MCH 33.9 H pg
(27.0-31.0)
MPV 11.3 H fL
(7.4-10.4)
Carbon Dioxide 19 L mmol/L
(22-30)
BUN < 2 L mg/dl
(7-17)
Creatinine 0.5 L mg/dL
(0.6-1.0)
Total Bilirubin 5.5 H mg/dl
(0.2-1.3)
AST 98 H U/L
(14-36)
Total Protein 8.3 H g/dl
(6.3-8.2)
Urine Ketones 3+ A
(Negative)
Ur Occult Blood Reflex 1+ A
(Negative)
Urine Nitrite (Reflex) Positive A
(Negative)
Urine Bilirubin 3+ A
(Negative)
Urine Urobilinogen 4+ A
(Neg - 1+)
Leukocyte Esterase Rfl 1+ A
(Negative)
Urine RBC 3-6 A /HPF
(0-2)
Urine Bacteria (Reflex) Many A
(Negative)
Urine Albumin (Reflex) 3+ A
(Neg - Trace)
07/02/24 16:33
07/02/24 16:33
Vital Signs
Initial and Last Documented VS:
Initial Vital Signs
Pulse Resp BP
138 15 136/103
07/02/24 16:22 07/02/24 16:22 07/02/24 16:22
Last Documented Vital Signs
Pulse Resp BP
71 17 118/65
07/02/24 21:30 07/02/24 21:30 07/02/24 21:00
MDM/Problems Addressed
Differential Diagnosis Includes:
Acute hepatitis, biliary colic, acute cholecystitis, gastroenteritis, alcoholic gastritis, viral syndrome
MDM/Problems Addressed:
This is a 33-year-old female with a past medical history of hepatitis C, prior alcohol use disorder, depression, who presents emergency department today with persistent nausea and vomiting for the past 3 weeks. Patient reports that she has had
around 4 episodes of vomiting every day. Patient also has associated intermittent right upper quadrant pain. On physical exam she is actively vomiting but nontoxic-appearing, she does have some mild tenderness palpation of right upper quadrant.
She has no leukocytosis. Her ultrasound of the abdomen is negative for acute cholecystitis or acute hepatitis but does demonstrate hepatomegaly. She does have a low bicarb likely related to metabolic acidosis from persistent vomiting. Patient was
given a bag of IV fluids. Her bilirubin today is 5.5 however this is significantly improved from her baseline during last admission. Do not suspect acute obstructive process, suspect this is related to known hepatitis C. AST also trending down
from previous admission. Patient states that she had Zofran at home and that has not been helping her. She was given Reglan and Benadryl here which seemed to resolve her symptoms. Patient able to tolerate p.o. now. Urinalysis significant for
urinary tract infection. This may be contributing to her symptoms. Did offer admission considering patient has had the symptoms daily however patient prefers to be discharged. Patient does have a follow-up with Dr. Valentin her agricultural extension officer in
1 week. Discussed return precautions. Patient stable for discharge.
*Pulse Oximetry
Patient hypoxic: no
*Critical Care Note
Total Time (30-74mins, 75-104mins- exclusive of procedures): Not Applicable
Data Reviewed
Review of Other/Old Records Reveals: Records (Reviewed previous discharge summary from 05/10/2024 patient admitted for acute alcoholic hepatitis and influenza A)
Source: patient and records
Patient Management
Escalation/DeEscalation of care consider admission/obs:
Admit not indicated, patient stable for discharge, case reviewed with attending
Update Note
Update Note:
8:18 pm--Patient not actively vomiting at this time; Fluids have just been started. She does have a follow up with Dr. Valentin next July 11
ED Attending Note
-
Portions of this chart may have been created with voice recognition software.� Occasional wrong word or��sound alike� substitutions may have occurred due to the inherent limitations of voice recognition software.
Discharge Plan
Departure
Patient Disposition: Home (Routine Discharge)
Date of Disposition: 07/02/24
Time of Disposition: 21:16
Patient with high blood pressure during this ER visit?: Yes
Condition: Good
Discharge Problem:
Nausea & vomiting, Hepatomegaly, Urinary tract infection
Instructions: Urinary tract infections in adults, Nausea and Vomiting, Adult (DC), Abdominal Pain
Prescriptions:
New
prochlorperazine maleate [Compazine] 5 mg tablet
5 mg PO TID PRN (Reason: nausea and vomiting) Qty: 8 0RF
cephalexin 500 mg capsule
500 mg PO BID 7 Days Qty: 14 0RF
No Action
lidocaine 4 % Adhesive Patch,Medicated
1 patch topical DAILY Qty: 0 0RF
polyethylene glycol 3350 17 gram Powder In Packet
17 g PO DAILYPRN PRN (Reason: constipation) Qty: 0 0RF
folic acid 1 mg Tablet
1 mg PO DAILY Qty: 0 0RF
prednisolone sodium phosphate 15 mg/5 mL (3 mg/mL) Solution
40 mg PO DAILY Qty: 237 0RF
tramadol 50 mg Tablet
50 mg PO Q6HPRN PRN (Reason: moderate pain) Qty: 30 0RF
pantoprazole 40 mg Tablet,Delayed Release (Dr/Ec)
40 mg PO BID Qty: 60 0RF
thiamine mononitrate (vit B1) 100 mg Tablet
100 mg PO BID Qty: 0 0RF
Referrals:
Oracio Valentin MD [Active] - Call in 1-3 days for appt
NONE,* [Family Provider] -
Activity Restrictions/Additional Instructions:
Starting tomorrow, you can take Compazine. You can take 1 tablet 3 times daily as needed for nausea and vomiting.
For your urinary tract infection, please start taking Keflex. You can take 1 pill twice daily for [address]
Please [address] Valentin's office tomorrow and try to get your appointment moved up sooner and please see that you are seen in the emergency department.
PLEASE RETURN EMERGENCY DEPARTMENT SHOULD YOU DEVELOP INABILITY TOLERATE ORAL INTAKE, INTRACTABLE NAUSEA OR VOMITING, WORSENING ABDOMINAL PAIN, CHEST PAIN, SHORTNESS OF BREATH, LIGHTHEADEDNESS, BLACK TARRY STOOLS, RECTAL BLEEDING, DIZZINESS, OR ANY
OTHER SIGNS OR SYMPTOMS WORRISOME TO YOU.
Interventions
Interventions:
*Risk Screen - Suicide Last Done: 07/02/24 16:22
*General Assessment Last Done: 07/02/24 16:22
*Neglect/Abuse Screening Last Done: 07/02/24 16:22
*Nursing Disposition Last Done: 07/02/24 22:06
Discharge Date and Time
Discharge Date/Time: 07/02/24 22:06
Print Language: DIVEHI
[2024-07-02 19:34] VITALS: BP 130/82
[2024-07-02] MEDS: BENADRYL 12.5 MG IV (19:52)
[2024-07-02] MEDS: NSS 1000 IV (19:53)
[2024-07-02] MEDS: PEPCID 20 MG IV (19:55)
[2024-07-02] MEDS: REGLAN 10 MG IV (19:58)
[2024-07-02 20:00] VITALS: BP 136/86
[2024-07-02 21:00] VITALS: BP 118/65
[2024-07-04 18:51] LABS: Hepatitis B Surface Antigen Negative (Negative)
[2024-07-04 19:09] LABS: Hepatitis B Surface Antibody Positive; Hepatitis C Antibody Reactive (Negative)
[2024-07-04 20:09] LABS: Hepatitis A IgM Antibody Negative (Negative); Hepatitis B Core Ab, IgM Negative (Negative)
== END 2024-07-02 22:06 | disposition home or self-care (01) ==
LOC: EMR 16:20
PROVIDERS: Physician Assistant; EMERGENCY PHYSICIAN Emergency Medicine
DX: N39.0 Urinary tract infection, site not specified (principal); R16.0 Hepatomegaly, not elsewhere classified; R03.0 Elevated blood-pressure reading, without diagnosis of hypertension; F17.200 Nicotine dependence, unspecified, uncomplicated
CPT/HCPCS: 99284; 96374; 96375 ×2; 76700; 80053; 81003; 81015; 83690; 84703; 85025; 86705; 86706; 86709; 86803; 87086; 87340

== ENCOUNTER 2024-07-07 11:55 | Emergency (ER) | payer OTHER, SELFPAY ==
[2024-07-07] VITALS (7 sets, daily range): BP systolic 110–135; BP diastolic 55–88; BMI 34.8
--- NOTE | 2024-07-07 13:25 | ED.GENMED ---
History of Present Illness
General
Chief Complaint: Abdominal Symptoms
Source: patient, records and previous radiology exam
Exam Limitations: none
Time Seen by Provider: 07/07/24 13:01
Nursing documentation reviewed up to this point in time: agreed with
History of Present Illness
History of Present Illness:
33-year-old female no prior abdominal surgeries ex drinker previously on Suboxone has hepatomegaly presents with 2 weeks of abdominal pain and vomiting seen in the ER recently had an ultrasound and recommended admission she had a home take care of
her child, states that she was discharged has not kept much down she feels dehydrated she has crampy upper abdominal pain, patient has not had Suboxone for few days does not believe this is her issue today
Past History
Past History
ED Past Medical History: Psychiatric and Other (Cellulitis, Gout,)
ED Past Surgical History: and Other
Social History
Tobacco: Smoker
Alcohol: None
Drug: None
Personal: Single
Living: with family
Employment: Student
Review of Systems
Review of Systems
All Other Systems: Not applicable
Constitutional: Reports fatigue; Denies fever
EENT: Reports no symptoms
Respiratory: Reports no symptoms
Cardiac: Reports chest pain
ABD/GI: Reports abdominal pain, nausea, vomiting and constipated
: Reports no symptoms
Musculoskeletal: Reports no symptoms
Skin: Reports no symptoms
Neurological: Reports weakness
Endocrine: Reports no symptoms
Hematologic/Lymphatic: Reports no symptoms
Phy Exam
Physical Exam
Physical Exam:
Physical Exam
General: no apparent distress, not acutely ill
Neck: Dry lip
Heart: s1/s2 regular rate and rhythm, no murmur. equal radial pulses.
Lungs: no acute respiratory distress. clear bilaterally
Abdomen distended diffuse mild tenderness
Neuro: alert and oriented. no focal neurological deficits
Skin: no rash
Psychiatric: well kept. interactive and cooperative
Extremities: no edema.
Course
Orders/Labs/Results
Orders:
Orders
07/07/24 13:21
Iohexol [Omnipaque] See Protocol PO NOW STA
07/07/24 13:22
CT Abd/pel W Iv And Oral Contr Urgent
Comment:
Reason For Exam: pain vomiting
Test Result ONCE
07/07/24 13:27
0.9% Sodium Chloride 1000 ml [Nss] 1,000 ml IV BOLUS
Ondansetron Injectable [Zofran] 4 mg IV NOW STA
Pantoprazole [Protonix IV] 40 mg IV NOW STA
07/07/24 13:30
Complete Blood Count/With Diff Urgent
Comprehensive Metabolic Panel Urgent
HCG, Serum Qualitative Screen Urgent
Lipase Urgent
Urinalysis Reflex To Culture Urgent
Date Specimen was Collected: 07/07/24
Time Specimen was Collected: 13:29
Urine Microscopic Reflex Cult Urgent
Urine Culture Urgent
MAYRA Source: U
Specimen Description:
Date Specimen was Collected: 07/07/24
Time Specimen was Collected: 13:29
07/07/24 15:15
Acetaminophen [Tylenol] 1,000 mg .ROUTE .[facility]-MED ONE
Acetaminophen [Tylenol] 1,000 mg PO NOW STA
07/07/24 17:05
Ondansetron Injectable [Zofran] 4 mg .ROUTE .[facility]-MED ONE
07/07/24 17:07
Ondansetron Injectable [Zofran] 4 mg IV NOW STA
07/07/24 17:08
0.9% Sodium Chloride 1000 ml [Nss] 1,000 ml IV BOLUS
Abnormal Lab Results
07/07/24
13:30
RBC 3.90 L 10^6/uL
(4.20-5.40)
MCH 34.1 H pg
(27.0-31.0)
MPV 11.8 H fL
(7.4-10.4)
Absolute Lymphs (auto) 1.1 L 10^3/uL
(1.2-3.4)
Lymphocytes % 19.5 L %
(20.5-51.1)
Potassium 3.3 L mmol/L
(3.5-5.1)
BUN 5 L mg/dl
(7-17)
Creatinine 0.5 L mg/dL
(0.6-1.0)
Total Bilirubin 5.1 H mg/dl
(0.2-1.3)
AST 97 H U/L
(14-36)
Urine Ketones 3+ A
(Negative)
Ur Occult Blood Reflex 1+ A
(Negative)
Urine Bilirubin 3+ A
(Negative)
Urine Urobilinogen 4+ A
(Neg - 1+)
Leukocyte Esterase Rfl 1+ A
(Negative)
Urine Bacteria (Reflex) Many A
(Negative)
Urine Albumin (Reflex) 2+ A
(Neg - Trace)
07/07/24 13:30
07/07/24 13:30
Vital Signs
Initial and Last Documented VS:
Initial Vital Signs
Temp Pulse Resp BP Pulse Ox
98.7 F 102 16 135/78 98
07/07/24 12:00 07/07/24 12:00 07/07/24 12:00 07/07/24 12:00 07/07/24 12:00
Last Documented Vital Signs
Temp Pulse Resp BP Pulse Ox
98.7 F 102 16 122/75 97
07/07/24 12:00 07/07/24 12:00 07/07/24 12:00 07/07/24 17:49 07/07/24 15:18
MDM/Problems Addressed
Differential Diagnosis Includes:
Gastritis enteritis pancreatitis colitis narcotic withdrawal nonspecific abdominal pain constipation
MDM/Problems Addressed:
Nausea vomiting
*Critical Care Note
Total Time (30-74mins, 75-104mins- exclusive of procedures): Not Applicable
Update Note
Update Note:
Update, labs are noted, PDMP noted, no recent prescriptions patient is prepping with p.o. contrast for p.o. and IV contrast CT scan
ED Attending Note
-
Portions of this chart may have been created with voice recognition software.� Occasional wrong word or��sound alike� substitutions may have occurred due to the inherent limitations of voice recognition software.
Discharge Plan
Departure
Patient Disposition: Home (Routine Discharge)
Date of Disposition: 07/07/24
Time of Disposition: 16:54
Patient with high blood pressure during this ER visit?: No
Condition: Good
Covid-19: Not Applicable
Discharge Problem:
Vomiting
Instructions: Clear Liquid Diet, Dehydration, Adult (DC), [place] Diet, Nausea and Vomiting, Adult (DC), Abdominal Pain
Prescriptions:
New
promethazine 25 mg tablet
25 mg PO Q6H PRN (Reason: nausea and vomiting) Qty: 20 0RF
pantoprazole [Protonix] 40 mg tablet,delayed release (DR/EC)
40 mg PO DAILY Qty: 30 0RF
No Action
lidocaine 4 % Adhesive Patch,Medicated
1 patch topical DAILY Qty: 0 0RF
polyethylene glycol 3350 17 gram Powder In Packet
17 g PO DAILYPRN PRN (Reason: constipation) Qty: 0 0RF
folic acid 1 mg Tablet
1 mg PO DAILY Qty: 0 0RF
prednisolone sodium phosphate 15 mg/5 mL (3 mg/mL) Solution
40 mg PO DAILY Qty: 237 0RF
tramadol 50 mg Tablet
50 mg PO Q6HPRN PRN (Reason: moderate pain) Qty: 30 0RF
pantoprazole 40 mg Tablet,Delayed Release (Dr/Ec)
40 mg PO BID Qty: 60 0RF
thiamine mononitrate (vit B1) 100 mg Tablet
100 mg PO BID Qty: 0 0RF
prochlorperazine maleate [Compazine] 5 mg tablet
5 mg PO TID PRN (Reason: nausea and vomiting) Qty: 8 0RF
cephalexin 500 mg capsule
500 mg PO BID 7 Days Qty: 14 0RF
Referrals:
NONE,* [Family Provider] -
Activity Restrictions/Additional Instructions:
[place] diet nothing fatty or spicy follow-up with your primary care provider given to you on your insurance card
Interventions
Interventions:
*Risk Screen - Suicide Last Done: 07/07/24 12:00
*General Assessment Last Done: 07/07/24 13:27
*Neglect/Abuse Screening Last Done: 07/07/24 12:00
*ED- Fall Risk Assessment Last Done: 07/07/24 13:27
*ED COVID-19 Vaccine History Last Done: 07/07/24 13:27
*Nursing Disposition Last Done: 07/07/24 17:52
MB-Yufktw-Quapffthvd Assessment Last Done: 07/07/24 13:27
Discharge Date and Time
Discharge Date/Time: 07/07/24 18:05
Print Language: [email or web address]
[2024-07-07 13:45] LABS: Urine Albumin 2+ (Neg - Trace); Urine Bilirubin 3+ (Negative); Urine Character Cloudy (Clear); Urine Color Yellow; Urine Glucose Negative (Negative); Urine Ketone 3+ (Negative); Urine Leukocyte 1+ (Negative); Urine Nitrite Negative (Negative); Urine Occult Blood 1+ (Negative); Urine Specific Gravity 1.025 (<1.030); Urine Urobilinogen 4+ (Neg - 1+)
[2024-07-07] MEDS: NSS 1000 IV ×2 (13:45→17:09)
[2024-07-07] MEDS: ZOFRAN 4 MG IV ×2 (13:45→17:07)
[2024-07-07] MEDS: PROTONIX IV 40 MG IV (13:45)
[2024-07-07 13:46] LABS: % Basophils 0.2 % (0-2); % Eosinophils 0.4 % (0-6); % Immature Granulocytes 0.2 % (0-0.5); % Lymphocytes 19.5 % (20.5-51.1); % Monocytes 5.4 % (1.7-9.3); % Neutrophils 74.3 % (42.2-75.2); Absolute Lymphocytes 1.1 10^3/uL (1.2-3.4); Absolute Monocytes 0.3 10^3/uL (0.1-0.6); Absolute Neutrophils 4.2 10^3/uL (1.4-6.5); Hematocrit 38.5 % (37.0-47.0); Hemoglobin 13.3 g/dL (12.0-16.0); Mean Corp Hgb Conc. 34.5 g/dL (33.0-37.0); Mean Corpuscular Hgb 34.1 pg (27.0-31.0); Mean Corpuscular Volume 98.7 fL (81.0-99.0); Mean Platelet Volume 11.8 fL (7.4-10.4); Nucleated Red Blood Cells % 0 %; Platelet Count 142 10^3/uL (130-400); Red Cell Dist. Width 11.9 % (11.5-14.5); White Blood Cell Count 5.6 10^3/uL (4.8-10.8)
[2024-07-07] MEDS: OMNIPAQUE 50 ML PO (13:46)
[2024-07-07 13:57] LABS: HCG, Serum Qualitative Screen Negative
[2024-07-07 14:00] LABS: Urine Squamous Cell >30 /LPF (Few)
[2024-07-07 14:01] LABS: Urine Bacteria Many (Negative); Urine Red Blood Cell 0-2 /HPF (0-2); Urine White Cell 0-2 /HPF (0-5)
[2024-07-07 14:02] LABS: ALT (SGPT) 29 U/L (0-35); AST (SGOT) 97 U/L (14-36); Albumin 3.8 g/dl (3.5-5.0); Alkaline Phosphatase 94 U/L (38-126); Blood Urea Nitrogen 5 mg/dl (7-17); Carbon Dioxide 29 mmol/L (22-30); Chloride 100 mmol/L (98-107); Estimated Creatinine Clearance > 125 ml/min; Glucose 91 mg/dl (70-99); Lipase 60 U/L (23-300); Potassium 3.3 mmol/L (3.5-5.1); Sodium 141 mmol/L (135-145); Total Bilirubin 5.1 mg/dl (0.2-1.3); Total Protein 7.4 g/dl (6.3-8.2); eGFR > 60.00
[2024-07-07] MEDS: TYLENOL 1000 MG PO (15:18)
== END 2024-07-07 18:05 | disposition home or self-care (01) ==
LOC: EMR 11:55
PROVIDERS: EMERGENCY PHYSICIAN Emergency Medicine
DX: R11.2 Nausea with vomiting, unspecified (principal); F17.200 Nicotine dependence, unspecified, uncomplicated
CPT/HCPCS: 99284; 96374; 96375; 96361; 74177; 80053; 81003; 81015; 83690; 84703; 85025; 87086; Q9967

== ENCOUNTER 2024-07-25 10:16 | Emergency (ER) | payer OTHER, SELFPAY ==
[2024-07-25 10:21] VITALS: BP 137/81
--- NOTE | 2024-07-25 11:27 | ED.GENMED ---
History of Present Illness
General
Chief Complaint: Abdominal Symptoms
Source: patient
Exam Limitations: none
Time Seen by Provider: 07/25/24 11:16
History of Present Illness
History of Present Illness:
33-year-old female presents with recurrent nausea and vomiting. She was here 2 weeks ago for the same. She has been vomiting for the past month. She denies any significant abdominal pain. She has been seen by GI as an outpatient and is due for
an endoscopy in 2 days. She has not been moving her bowels. She notes weight loss. She had a CT scan performed 2 weeks ago which was negative. She denies regular alcohol use. She cannot keep anything down. She denies any marijuana products.
She also notes headaches associated with her nausea.
Past History
Past History
ED Past Medical History: Psychiatric and Other (Cellulitis, Gout,)
ED Past Surgical History: and Other
Social History
Tobacco: Smoker
Alcohol: None
Drug: None
Personal: Single
Living: with family
Employment: Student
Phy Exam
Physical Exam
Physical Exam:
General: Well-appearing female no acute respiratory distress
HEENT: Normocephalic atraumatic
Heart: Regular rate and rhythm
Lungs: Clear no wheeze
Abdomen is soft nontender nondistended extremities: No cyanosis or edema
Course
Orders/Labs/Results
Orders:
Orders
07/25/24 11:25
0.9% Sodium Chloride 1000 ml [Nss] 1,000 ml IV BOLUS
Diphenhydramine [Benadryl] 25 mg IV NOW STA
Prochlorperazine [Compazine] 10 mg IV NOW STA
07/25/24 11:26
Test Result ONCE
07/25/24 11:36
Complete Blood Count/With Diff Urgent
Comprehensive Metabolic Panel Urgent
Free T4 Urgent
HCG, Serum Qualitative Screen Urgent
Lipase Urgent
TSH Reflex To Free T4 Urgent
07/25/24 14:24
Ketorolac [Toradol] 15 mg IV NOW STA
07/25/24 14:25
Ketorolac [Toradol] 15 mg .ROUTE .STK-MED ONE
07/25/24 15:39
Acetaminophen [Tylenol] 1,000 mg PO NOW STA
Dexamethasone Sod Phosphate [Decadron] 10 mg IV NOW STA
Abnormal Lab Results
07/25/24
11:36
RBC 3.91 L 10^6/uL
(4.20-5.40)
MCH 32.5 H pg
(27.0-31.0)
Plt Count 111 L 10^3/uL
(130-400)
MPV 11.8 H fL
(7.4-10.4)
Potassium 3.2 L mmol/L
(3.5-5.1)
BUN 4 L mg/dl
(717)
Creatinine 0.5 L mg/dL
(0.6-1.0)
Total Bilirubin 4.8 H mg/dl
(0.2-1.3)
AST 139 H U/L
(14-36)
TSH (Reflex) 7.46 H uIU/ml
(0.47-4.68)
07/25/24 11:36
07/25/24 11:36
Vital Signs
Initial and Last Documented VS:
Initial Vital Signs
Temp Pulse Resp BP Pulse Ox
98.5 F 98 18 137/81 96
07/25/24 10:21 07/25/24 10:21 07/25/24 10:21 07/25/24 10:21 07/25/24 10:21
Last Documented Vital Signs
Temp Pulse Resp BP Pulse Ox
98.5 F 78 20 120/76 93
07/25/24 10:21 07/25/24 14:06 07/25/24 14:06 07/25/24 15:14 07/25/24 14:06
MDM/Problems Addressed
Differential Diagnosis Includes:
Recurrent vomiting. Consider gastritis versus withdrawal symptoms versus less likely bowel obstruction as she has had normal CAT scan in the past with a benign abdominal exam. Patient also has headaches consider migraine headache causing vomiting
Check labs and thyroid. Fluids Compazine Benadryl ordered
*Critical Care Note
Total Time (30-74mins, 75-104mins- exclusive of procedures): Not Applicable
Update Note
Update Note:
Workup unremarkable. Patient now tolerating oral fluids. Received good relief of her nausea still has headache. Decadron and Tylenol given. Question possible migraine type headache. She has an appoint with GI team in 2 days for scope which I
think she should keep. No indication for admission. Stable for discharge
ED Attending Note
-
Portions of this chart may have been created with voice recognition software.� Occasional wrong word or��sound alike� substitutions may have occurred due to the inherent limitations of voice recognition software.
Discharge Plan
Departure
Patient Disposition: Home (Routine Discharge)
Date of Disposition: 07/25/24
Time of Disposition: 16:22
Patient with high blood pressure during this ER visit?: No
Discharge Problem:
Vomiting
Instructions: Nausea and Vomiting, Adult (DC)
Prescriptions:
New
metoclopramide HCl [Reglan] 10 mg tablet
10 mg PO Q6H PRN (Reason: nausea and vomiting) Qty: 10 0RF
No Action
lidocaine 4 % Adhesive Patch,Medicated
1 patch topical DAILY Qty: 0 0RF
polyethylene glycol 3350 17 gram Powder In Packet
17 g PO DAILYPRN PRN (Reason: constipation) Qty: 0 0RF
folic acid 1 mg Tablet
1 mg PO DAILY Qty: 0 0RF
prednisolone sodium phosphate 15 mg/5 mL (3 mg/mL) Solution
40 mg PO DAILY Qty: 237 0RF
tramadol 50 mg Tablet
50 mg PO Q6HPRN PRN (Reason: moderate pain) Qty: 30 0RF
pantoprazole 40 mg Tablet,Delayed Release (Dr/Ec)
40 mg PO BID Qty: 60 0RF
thiamine mononitrate (vit B1) 100 mg Tablet
100 mg PO BID Qty: 0 0RF
prochlorperazine maleate [Compazine] 5 mg tablet
5 mg PO TID PRN (Reason: nausea and vomiting) Qty: 8 0RF
cephalexin 500 mg capsule
500 mg PO BID 7 Days Qty: 14 0RF
promethazine 25 mg tablet
25 mg PO Q6H PRN (Reason: nausea and vomiting) Qty: 20 0RF
pantoprazole [Protonix] 40 mg tablet,delayed release (DR/EC)
40 mg PO DAILY Qty: 30 0RF
Referrals:
NONE,* [Family Provider] -
Activity Restrictions/Additional Instructions:
Drink plenty of clear liquids. Continue with Tylenol for headache. Follow-up with GI as planned for your endoscopy. Use of Reglan if needed for nausea.
Interventions
Interventions:
*Risk Screen - Suicide Last Done: 07/25/24 10:21
*General Assessment Last Done: 07/25/24 10:21
*Neglect/Abuse Screening Last Done: 07/25/24 10:21
*ED- Fall Risk Assessment Last Done: 07/25/24 11:48
*ED COVID-19 Vaccine History Last Done: 07/25/24 11:48
BD-Auyhtx-Bfznobznkk Assessment Last Done: 07/25/24 11:48
Discharge Date and Time
Print Language: MALTESE
[2024-07-25] MEDS: COMPAZINE 10 MG IV (11:37)
[2024-07-25] MEDS: BENADRYL 25 MG IV (11:37)
[2024-07-25] MEDS: NSS 1000 IV (11:37)
[2024-07-25 11:54] LABS: % Basophils 0.6 % (0-2); % Eosinophils 1.2 % (0-6); % Immature Granulocytes 0.2 % (0-0.5); % Lymphocytes 23.6 % (20.5-51.1); % Monocytes 6.6 % (1.7-9.3); % Neutrophils 67.8 % (42.2-75.2); Absolute Eosinophils 0.1 10^3/uL (0-0.7); Absolute Lymphocytes 1.2 10^3/uL (1.2-3.4); Absolute Monocytes 0.3 10^3/uL (0.1-0.6); Absolute Neutrophils 3.3 10^3/uL (1.4-6.5); Hematocrit 37.2 % (37.0-47.0); Hemoglobin 12.7 g/dL (12.0-16.0); Mean Corp Hgb Conc. 34.1 g/dL (33.0-37.0); Mean Corpuscular Hgb 32.5 pg (27.0-31.0); Mean Corpuscular Volume 95.1 fL (81.0-99.0); Mean Platelet Volume 11.8 fL (7.4-10.4); Nucleated Red Blood Cells % 0.4 %; Platelet Count 111 10^3/uL (130-400); Red Blood Cell Count 3.91 10^6/uL (4.20-5.40); Red Cell Dist. Width 13.6 % (11.5-14.5); White Blood Cell Count 4.9 10^3/uL (4.8-10.8)
[2024-07-25 12:10] LABS: HCG, Serum Qualitative Screen Negative
[2024-07-25 12:18] LABS: ALT (SGPT) 30 U/L (0-35); AST (SGOT) 139 U/L (14-36); Albumin 3.5 g/dl (3.5-5.0); Alkaline Phosphatase 90 U/L (38-126); Blood Urea Nitrogen 4 mg/dl (7-17); Calcium 8.7 mg/dl (8.4-10.2); Carbon Dioxide 27 mmol/L (22-30); Chloride 102 mmol/L (98-107); Glucose 90 mg/dl (70-99); Lipase 43 U/L (23-300); Potassium 3.2 mmol/L (3.5-5.1); Sodium 139 mmol/L (135-145); Total Bilirubin 4.8 mg/dl (0.2-1.3); Total Protein 7.1 g/dl (6.3-8.2); eGFR > 60.00
[2024-07-25 14:06] VITALS: BP 108/60
[2024-07-25] MEDS: TORADOL 15 MG IV (14:27)
[2024-07-25 15:14] VITALS: BP 120/76
[2024-07-25 15:39] LABS: TSH Reflex To Free T4 7.46 uIU/ml (0.47-4.68)
[2024-07-25 16:09] LABS: Free T4 1.74 ng/dl (0.78-2.19)
[2024-07-25] MEDS: DECADRON 10 MG IV (16:12)
[2024-07-25] MEDS: TYLENOL 1000 MG PO (16:12)
== END 2024-07-25 16:41 | disposition home or self-care (01) ==
LOC: EMR 10:16
PROVIDERS: Physician Assistant; EMERGENCY PHYSICIAN Emergency Medicine
DX: R11.2 Nausea with vomiting, unspecified (principal); R51.9 Headache, unspecified; F17.200 Nicotine dependence, unspecified, uncomplicated
CPT/HCPCS: 96374; 96375; 99284; 80053; 83690; 84439; 84443; 84703; 85025

== ENCOUNTER 2024-07-29 06:19 | Day surgery (SDC) | payer OTHER, SELFPAY | END 2024-07-29 11:04 | disposition home or self-care (01) | LOC: GI 06:19 | PROVIDERS: ATTENDING PHYSICIAN Specialist | DX: R11.2 Nausea with vomiting, unspecified (principal); K21.00 Gastro-esophageal reflux disease with esophagitis, without bleeding; K31.89 Other diseases of stomach and duodenum | CPT/HCPCS: 43239; 88305; 88342 ==

== ENCOUNTER → 2024-11-01 07:57 | Outpatient (REF) | payer OTHER, SELFPAY | LOC: HWRAD 07:57 | PROVIDERS: ATTENDING PHYSICIAN Specialist | DX: R10.11 Right upper quadrant pain (principal) | CPT/HCPCS: 76700 ==

== ENCOUNTER → 2024-12-20 20:00 | Outpatient (REF) | payer OTHER, SELFPAY | LOC: MRI 20:00 | PROVIDERS: ATTENDING PHYSICIAN Specialist | DX: R10.11 Right upper quadrant pain (principal) | CPT/HCPCS: 74183; A9581 ==

== ENCOUNTER → 2025-01-14 14:24 | Outpatient (REF) | payer OTHER, SELFPAY | LOC: RAD 14:24 | PROVIDERS: ATTENDING PHYSICIAN Internal Medicine Hematology & Oncology | DX: R59.0 Localized enlarged lymph nodes (principal); R16.1 Splenomegaly, not elsewhere classified; D64.9 Anemia, unspecified; D69.6 Thrombocytopenia, unspecified | CPT/HCPCS: 71260; 74177; Q9967 ==

== ENCOUNTER → 2025-02-17 07:10 | Outpatient (REF) | payer OTHER, SELFPAY ==
[2025-02-17] VITALS (7 sets, daily range): BP systolic 59–127; BP diastolic 70–78
[2025-02-17 07:37] LABS: Hematocrit 35.1 % (37.0-47.0); Hemoglobin 11.8 g/dL (12.0-16.0); Mean Corp Hgb Conc. 33.6 g/dL (33.0-37.0); Mean Corpuscular Volume 93.1 fL (81.0-99.0); Nucleated Red Blood Cells % 0 %; Platelet Count 164 10^3/uL (130-400); Red Cell Dist. Width 13.1 % (11.5-14.5)
[2025-02-17] MEDS: ATIVAN 0.5 MG PO (07:46)
[2025-02-17 08:15] LABS: INR 1.18; PT 15.3 Sec (11.4-14.6)
== END ==
LOC: RADI 07:10
PROVIDERS: ATTENDING PHYSICIAN Internal Medicine Hematology & Oncology; REFERRING PHYSICIAN Physician Assistant
DX: D64.9 Anemia, unspecified (principal); D69.6 Thrombocytopenia, unspecified; D68.8 Other specified coagulation defects; R59.0 Localized enlarged lymph nodes
CPT/HCPCS: 36415; 38222; 77012; 85025; 85610; 88305; 88311; 88312; 88313